=== PATIENT | female | born 1985 | race Caucasian/White ===

== ENCOUNTER → 2018-02-16 09:31 | Outpatient (CLI) | payer OTHER, SELFPAY ==
[2018-02-16 11:00] LABS: Hemoglobin A1c 10.3 % (4.2-6.3)
[2018-02-16 11:06] LABS: Microalbumin,Random Urine < 5.0 mg/L (NO RANGE EST.)
[2018-02-16 11:13] LABS: ALB/GLOB Ratio 0.9 RATIO (0.9-2.4); AST(SGOT) 14 U/L (15-37); Alanine Aminotransfer ALT/SGPT 19 U/L (13-56); Albumin, Serum 3.7 g/dL (3.2-5.0); Alkaline Phosphatase 77 U/L (45-117); Anion Gap 6 (5-15); BUN 15 mg/dL (7-18); BUN/Creat Ratio 19.5 RATIO (10-20); Calcium,Total 9.2 mg/dL (8.5-10.1); Chloride 104 mmol/L (98-107); Cholesterol 151 mg/dL (200); Creatinine, Serum 0.77 mg/dL (0.55-1.02); EST Glomerular Filtration Rate 93 mL/min (>60); Est Glom Filt Rate - Afr Amer 112 mL/min (>60); Globulin 4.2 g/dL (2.2-4.2); Glucose 199 mg/dL (74-106); High Density Lipoprotein 61 mg/dL; Potassium 3.9 mmol/L (3.5-5.1); Protein, Total 7.9 g/dL (6.4-8.2); Sodium Level 136 mmol/L (136-145); Triglycerides 77 mg/dL; Very Low Density Lipoprotein 15 mg/dL (5-40)
== END ==
LOC: LAB 09:35
PROVIDERS: Visit Provider Nurse Practitioner
DX: E10.65 Type 1 diabetes mellitus with hyperglycemia (principal)
CPT/HCPCS: 36415; 80053; 80061; 82043; 82570; 83036

== ENCOUNTER 2019-01-04 17:00 | Observation (INO) | payer OTHER, SELFPAY ==
[2019-01-04] VITALS (11 sets, daily range): BP systolic 106–137; BP diastolic 44–69; PULSE 105–124; RESP 13–25; TEMP 36.2–37.1; O2SAT 98–99; BMI 31.1; BMI 30.9
--- NOTE | 2019-01-04 17:09 | EKG12_ITS ---
Test Reason : DYSRHYTHMIA Blood Pressure : / mmHG Vent. Rate : 115 BPM Atrial Rate : 115 BPM P-R Int : 124 ms QRS Dur : 078 ms QT Int : 372 ms P-R-T Axes : 071 074 035 degrees QTc Int : 514 ms Sinus tachycardia Otherwise normal ECG Confirmed by PIERRE MCGUIRE, QUE ([id number]), supervising editor trailer NICK SOLITARIO ([id number]) on 01/09/2019 10:41:17 AM Referred By: KANDIS Confirmed By:MOODY JAY MD
--- NOTE | 2019-01-04 17:10 | ED.VIS.GEN ---
History of Present Illness Chief Complaint: Nausea/Vomiting Detail of Chief Complaint: Blood sugar greater than 400 Informant: Patient Onset: Today Context: Sudden Onset Timing: Intermittent Quality: Nausea and vomiting x30 since 7 AM Location: GI Current Severity: Mild Maximum Severity: Severe Worsened by: Nothing Relieved by: Nothing Associated Symptoms: Central chest pressure onset 2 hours ago Narrative: Patient is a 33-year-old female with type 1 diabetes since the age of 17 who presents with nausea, vomiting and abdominal pain with vomiting. Onset since awakening this morning. She reports vomiting 30 times since this morning. She denies diarrhea. She denies dysuria, frequency, urgency or hematuria. She does report thirst and dry mouth. She states been sipping water since any attempt to drink more than a sip results and vomiting. She also reports chest heaviness described as an elephant on her chest that started 2 hours ago. She has no known history of coronary disease. Her only risk factor is diabetes. She denies dyspnea, diaphoresis or radiation of the chest heaviness. Prior similar symptoms: Yes Recent Illness/Hospitalization: No - Past Medical History (1) History of type 1 diabetes mellitus Status: Acute Past Medical History - Allergies and Home Meds Allergies/Adverse Reactions: Allergies shellfish derived Allergy (Verified 01/04/19 17:00) Vomiting Primary Care Physician: Care Physician,No Primary [NON-STAFF] - Prior records reviewed: Yes Lives: Spouse/ Significant Other, With Family Smoking Status: Never smoker Alcohol: None Drugs: None Review of Systems General: Denies: Chills, Fever, Malaise, Subjective, Sweats, Weight loss Eyes: Denies: Visual changes - bilaterally, Blurred Vision - bilaterally ENT: Denies: Bilateral ear pain, Rhinorrhea, Sore throat Cardiovascular: Reports: Chest pain. Denies: Palpitations, Heart racing, -, - Respiratory: Denies: Dyspnea, Cough, Dyspnea on exertion Gastrointestinal: Reports: Abdominal pain, Nausea, Vomiting. Denies: Diarrhea, Constipation, Melena, Hematochezia, -, - Genitourinary: Denies: Dysuria, Hematuria, Frequency, -, - Musculoskeletal: Denies: Myalgias, Arthralgias, Neck pain, Back pain, Swelling, Extremity Pain, -, - Skin: Denies: Rash, Wounds Neurological: Reports: Weakness. Denies: Headache, Parasthesia Endocrine: Denies: Polyuria, Polydipsia Hematologic: Denies: Easy bruising, Easy bleeding Allergy: Denies: Uticaria Physical Exam Vital Signs/Narrative: Vital Signs Temp Pulse Resp BP Pulse Ox 01/04/19 17:01 97.2 F L 124 H 17 106/69 98 Inital Vital Signs reviewed: Yes General: Well nourished - Scan his belly is much sensation stool throughout the colon is, Well developed, No Acute Distress Head: Normocephalic, Atraumatic Eyes: Perrl, EOMI. Negative for: Pale conjunctiva, Scleral icterus ENT: No rhinorrhea, TM's clear, Dry mucous membranes Neck: Supple, Nontender, No lymphadenopathy, No JVD Cardiovascular: Regular rhythm, No murmurs, Normal S1, Normal S2, Tachycardia Respiratory: No distress, CTA bilaterally, Chest nontender Abdomen: Soft, Nontender, Nondistended, Normal bowel sounds, No masses Back: Nontender, Normal Inspection. Negative for: CVA tenderness Extremities: Nontender, No edema Skin: Normal color, No rash, No Trauma. Negative for: Cyanosis, Diaphoresis, Jaundice Neurological: Alert, Oriented x3, Cranial nerves II-XII grossly intact, Normal Strength, Normal Sensation, Normal Gait Psychological: Normal affect, Normal Mood Diagnostic/Tx/Re-eval Laboratory Results 01/04/19 01/04/19 01/04/19 17:28 17:28 17:28 WBC 22.9 H RBC 4.61 Hgb 14.0 Hct 41.7 MCV 90.5 MCH 30.4 MCHC 33.6 RDW 12.9 RDW Differential 42.1 Plt Count 343 MPV 11.5 Immature Gran % (Auto) 0.400 Neut % (Auto) 88.7 H Lymph % (Auto) 7.[address] [place] % (Auto) 3.7 Eos % (Auto) 0.0 Baso % (Auto) 0.1 Absolute Neuts (auto) 20.3 H Absolute Lymphs (auto) 1.63 Total Counted Not Reportable Differential Comment SCANNED Sodium 131 L Potassium 4.1 Chloride 98 Carbon Dioxide 12.0 L Anion Gap 21 H BUN 24 H Creatinine 1.40 H Estim Creat Clear Calc 54.01 Est GFR (MDRD) Af Amer 56 L Est GFR (MDRD) Non-Af 46 L BUN/Creatinine Ratio 17.1 Glucose 478 H* Calcium 10.1 Troponin I < 0.015 Urine Color Urine Clarity Urine pH Ur Specific [place] Urine Protein Urine Glucose (UA) Urine Ketones Urine Occult Blood Urine Nitrite Urine Bilirubin Urine Urobilinogen Ur Leukocyte Esterase Acetone Level MODERATE H POC Glucose 01/04/19 01/04/19 17:42 18:37 WBC RBC Hgb Hct MCV MCH MCHC RDW RDW Differential Plt Count MPV Immature Gran % (Auto) Neut % (Auto) Lymph % (Auto) [place] % (Auto) Eos % (Auto) Baso % (Auto) Absolute Neuts (auto) Absolute Lymphs (auto) Total Counted Differential Comment Sodium Potassium Chloride Carbon Dioxide Anion Gap BUN Creatinine Estim Creat Clear Calc Est GFR (MDRD) Af Amer Est GFR (MDRD) Non-Af BUN/Creatinine Ratio Glucose Calcium Troponin I Urine Color Yellow Urine Clarity Clear Urine pH 5.0 Ur Specific [place] 1.020 Urine Protein 15 H Urine Glucose (UA) 1000 H Urine Ketones 150 H Urine Occult Blood Negative Urine Nitrite Negative Urine Bilirubin Negative Urine Urobilinogen Normal Ur Leukocyte Esterase Negative Acetone Level POC Glucose 461 H* - EKG Initial EKG Interpretation: Sinus Tachycardia - Ventricular rate 115. ND interval 124 ms. QRS duration 70 ms. QT interval 372 ms. [place] is normal. - Medical Decision Making Patient with history of type 1 diabetes presents with high blood sugar and nausea vomiting. 2 L of normal saline since she clinically appears dehydrated. Since she is tachycardic will obtain EKG especially since she is complaining of an elephant sitting on her chest. Troponin was obtained. Appropriate blood work to assess for DKA. She received 5 mg of Reglan for nausea vomiting since she has diabetes for approximately 18 years. Patient was informed of results at 1925. She now reports burning sensation. She states it feels like heartburn. She was informed of results. Initial troponin which are the pain was negative. GI cocktail was ordered. Insulin drip was ordered since she is in DKA. Suspect white count is secondary to the DKA and vomiting 30 times. - Critical Care Time Critical care time (excluding procedures): 30-74 minutes - 32 minutes, Discussing w/Patient &/or Family/Nurse Practitioner, Discussing w/Consultants, Arranging Admission or Transfer ED Disposition - Plan for ED Patient: Diagnosis: Diabetic ketoacidosis associated with type 1 diabetes mellitus, Sinus tachycardia by electrocardiogram, Chest pain Referrals: Care Physician,No Primary [NON-STAFF] -
[2019-01-04] MEDS: Metoclopramide 10 MG/2 ML Vial 5 MG IV (17:37)
[2019-01-04] MEDS: 0.9% Normal Saline 1,000 ML 999 ML IV (17:37)
[2019-01-04 17:50] LABS: Bedside Glucose 461 mg/dL (70-110)
[2019-01-04 18:06] LABS: Absolute Lymphocyte Count 1.63 X10^3/ul (0.83-4.51); Absolute Neutrophil Count 20.3 X10^3/uL (2.0-7.7); Basophil# 0.03 X10^3/uL; Basophil% 0.1 % (0-1); Eosinophil# 0.01 X10^3/uL; Hematocrit 41.7 % (37-47); Lymphocyte # 1.63 X10^3/ul (4.0); Lymphocyte % 7.1 % (19-41); Mean Corp Hgb Conc 33.6 g/gl (32-36); Mean Corpuscular Hgb 30.4 pg (27.0-32.0); Mean Corpuscular Volume 90.5 fL (81-99); Mean Platelet Vol. 11.5 fl (6.2-12.0); Monocyte# 0.85 X10^3/uL; Monocyte% 3.7 % (0-10); Neutrophil # 20.26 X10^3/uL (2.7-7.7); Neutrophil % 88.7 % (47-70); Platelet Count 343 K/mm3 (150-450); RBC Distribution Width CV 12.9 % (11.6-14.6); RBC Distribution Width SD 42.1 fl (35.1-43.9); Red Blood Count 4.61 M/mm3 (4.2-5.4); White Blood Count 22.9 K/mm3 (4.4-11.0)
[2019-01-04 18:09] LABS: Differential Indicated SCAN CRITERIA MET; POSITIVE COUNT NO; POSITIVE DIFFERENTIAL YES; POSITIVE MORPHOLOGY YES
[2019-01-04 18:40] LABS: Differential Comment SCANNED
[2019-01-04 18:43] LABS: Bacteria 0 SEEN /hpf (None Seen); Mucous, Urine 0 SEEN /hpf (<or=2+); White Blood Cells 0 SEEN /hpf (0-5)
[2019-01-04 18:44] LABS: Color, Urine Yellow (Yellow); Glucose, Dipstick 1000 mg/dl (Normal); Leukocyte Esterase-Dipstick Negative /ul (Negative); Nitrite-Dipstick Negative (Negative); Occult Blood-Urine Negative /ul (Negative); Protein-Dipstick 15 mg/dl (Negative); Urine Bilirubin Dipstick Negative (Negative); Urine Clarity Clear (Clear); Urine Urobilinogen Normal (Normal)
[2019-01-04 19:05] LABS: Ketone-Dipstick 150 mg/dl (Negative)
[2019-01-04 19:15] LABS: Anion Gap 21 (5-15); BUN 24 mg/dL (7-18); BUN/Creat Ratio 17.1 RATIO (10-20); Calcium,Total 10.1 mg/dL (8.5-10.1); Chloride 98 mmol/L (98-107); EST Glomerular Filtration Rate 46 mL/min (>60); Est Glom Filt Rate - Afr Amer 56 mL/min (>60); Estimated Creatinine Clearance 54.01 ml/min; Glucose 478 mg/dL (74-106); Potassium 4.1 mmol/L (3.5-5.1); Sodium Level 131 mmol/L (136-145)
[2019-01-04 19:27] LABS: Red Blood Cells-Urine 0-5 SEEN /hpf (0-5); Squamous Epithelial Cells - UA 0-5 SEEN /hpf (5-10)
--- NOTE | 2019-01-04 19:29 | PCM.HP.STD ---
Problem List (1) History of type 1 diabetes mellitus Status: Chronic (2) Diabetic ketoacidosis associated with type 1 diabetes mellitus Status: Acute (3) Chest pain Status: Acute History of Present Illness Date of Admission: 01/04/19 Chief Complaint: NAUSEA AND VOMITING The patient is a 33 year old F with a significant history of tobacco abuse; and type 1 diabetes who has been previously admitted to ICU for DKA and currently on insulin pump presenting with nausea and vomiting. Per patient's she has vomited about 30 times. Her symptoms occurred on the same day of presentation. Because she thought that her insulin pump was not working she changed her insulin pump and gave herself multiple doses without any real relief. Associated with her symptoms is abdominal pain. Further patient complains of chest heaviness that spun across her entire chest. At the ED, patient was given GI cocktail which gave her immediate relief. At the emergency department her blood glucose on BMP was 478. Her sodium was 131. She had anion gap and ketones. Past Medical History Past Medical History (Chronic Problems): Chronic Problems (Last Reviewed 01/05/19 @ 02:28 by Jaylan Canales MD) History of type 1 diabetes mellitus (Chronic) uncontrolled diabetes type 1 without complication (Chronic) Type 2 diabetes mellitus (Chronic) Medical History: Medical History (Last Reviewed 01/05/19 @ 02:31 by Jaylan Canales MD) Hypothyroidism E03.9 Type 1 diabetes E10.9 Dx : age 17 Last exacerbation : DKA : 2008 Hypoglycemic episode : never ER visit : 2008 Allergies shellfish derived Allergy (Verified 01/04/19 17:00) Vomiting Home Medications: Ambulatory Orders Medication Instructions Recorded insulin lispro (U- 100) 100 See Rx Instructions SC QDAY #20 ml 08/29/18 unit/mL subcutaneous solution Surgical History: Surgical History (Last Reviewed 01/05/19 @ 02:28 by Jaylan Canales MD) H/O: Z98.891 Lives: With Family Smoking Status: Former smoker Alcohol: Occasional Drugs: None - *Family History Maternal Family History: Family History (Last Reviewed 01/05/19 @ 02:29 by Jaylan Canales MD) Father Hypertension Heart disease Myocardial infarction History Items: - - Maternal side with stage IV lung cancer Review of Systems Constitutional: Denies: Chills, Fever, Weight Change HEENT: Denies: Head Aches, Sinus Congestion, Sinus Drainage Cardiovascular: Reports: Heaviness. Denies: Palpitations Respiratory: Denies: Cough, Shortness of breath at rest, Sputum production Gastrointestinal: Reports: Nausea, Vomiting. Denies: Abdominal Pain Genitourinary: Denies: Dysuria Musculoskeletal: Denies: Joint Pain, Joint Tenderness Skin: Denies: Rash, Wounds Neurological: Denies: Numbness, Tingling, Focal weakness Psychiatric: Denies: Anxiety, Depression, Homicidal Ideations, Suicidal Ideations Hematologic/ Lymphatic: Denies: Easy Bruising, Easy Bleeding VTE Information - Inpt Only VTE Present on Admission: No VTE Mechan Device Prophylaxis: None VTE Pharm Prophylaxis ordered?: No Patient Problems: Active and Suspected Problems (Last Reviewed 01/05/19 @ 02:28 by Jaylan Canales MD) Diabetic ketoacidosis associated with type 1 diabetes mellitus (Acute) Sinus tachycardia by electrocardiogram (Acute) Chest pain (Acute) - Physical Exam General: Alert, Oriented x3, Cooperative HEENT: Atraumatic, PERRLA, EOMI, Normocephalic Neck: Supple, No JVD, Negative Carotid Bruits Lungs: Clear to auscultation, Normal air movement, Tachypneic Cardiovascular: Regular rate, No murmurs, Tachycardic Abdomen: Bowel Sounds Present, Soft, Non Tender Extremities: No edema, Capillary Refill Less than 3 Seconds Skin: No rashes, No breakdown Musculoskeletal: No Tenderness to Palpation of Joints or Extremities Neurological: Cranial nerves II-XII grossly intact Psych/Mental Status: Normal Affect, Appropriate Vital Signs Temp Pulse Resp BP Pulse Ox 97.2 F L 124 H 17 106/69 98 01/04/19 17:01 01/04/19 17:01 01/04/19 17:01 01/04/19 17:01 01/04/19 17:01 Oxygen Delivery Method Room Air Weight: 87.6 kg Body Mass Index (BMI) 31.1 Finger Stick Blood Glucose 461 Laboratory Tests Past 24 Hrs 01/04/19 01/04/19 01/04/19 17:28 17:28 17:28 WBC 22.9 H RBC 4.61 Hgb 14.0 Hct 41.7 MCV 90.5 MCH 30.4 MCHC 33.6 RDW 12.9 RDW Differential 42.1 Plt Count 343 MPV 11.5 Immature Gran % (Auto) 0.400 Neut % (Auto) 88.7 H Lymph % (Auto) 7.1 L [place] % (Auto) 3.7 Eos % (Auto) 0.0 Baso % (Auto) 0.1 Absolute Neuts (auto) 20.3 H Absolute Lymphs (auto) 1.63 Total Counted Not Reportable Differential Comment SCANNED Sodium 131 L Potassium 4.1 Chloride 98 Carbon Dioxide 12.0 L Anion Gap 21 H BUN 24 H Creatinine 1.40 H Estim Creat Clear Calc 54.01 Est GFR (MDRD) Af Amer 56 L Est GFR (MDRD) Non-Af 46 L BUN/Creatinine Ratio 17.1 Glucose 478 H* Calcium 10.1 Troponin I < 0.015 Urine Color Urine Clarity Urine pH Ur Specific [place] Urine Protein Urine Glucose (UA) Urine Ketones Urine Occult Blood Urine Nitrite Urine Bilirubin Urine Urobilinogen Ur Leukocyte Esterase Urine RBC Urine WBC Ur Squamous Epith Cells Urine Bacteria Urine Mucus Acetone Level MODERATE H 01/04/19 01/04/19 17:28 18:37 WBC RBC Hgb Hct MCV MCH MCHC RDW RDW Differential Plt Count MPV Immature Gran % (Auto) Neut % (Auto) Lymph % (Auto) [place] % (Auto) Eos % (Auto) Baso % (Auto) Absolute Neuts (auto) Absolute Lymphs (auto) Total Counted Differential Comment Sodium Pending Potassium Pending Chloride Pending Carbon Dioxide Pending Anion Gap Pending BUN Pending Creatinine Pending Estim Creat Clear Calc Est GFR (MDRD) Af Amer Pending Est GFR (MDRD) Non-Af Pending BUN/Creatinine Ratio Pending Glucose Pending Calcium Pending Troponin I Urine Color Yellow Urine Clarity Clear Urine pH 5.0 Ur Specific [place] 1.020 Urine Protein 15 H Urine Glucose (UA) 1000 H Urine Ketones 150 H Urine Occult Blood Negative Urine Nitrite Negative Urine Bilirubin Negative Urine Urobilinogen Normal Ur Leukocyte Esterase Negative Urine RBC 0-5 SEEN Urine WBC 0 SEEN Ur Squamous Epith Cells 0-5 SEEN Urine Bacteria 0 SEEN Urine Mucus 0 SEEN Acetone Level POC Glucose 01/04/19 17:42 POC Glucose 461 H* Assessment/Plan All Active Problems (Last Reviewed 01/05/19 @ 02:28 by Jaylan Canales MD) Diabetic ketoacidosis associated with type 1 diabetes mellitus (Acute) Sinus tachycardia by electrocardiogram (Acute) Chest pain (Acute) The patient is a 33 year old F with a significant history of former smoker; type 1 diabetes who has been previously admitted to ICU for DKA and currently on insulin pump presenting with nausea; vomiting; abdominal pain; chest pain; elevated blood glucose with anion gap and ketones consistent with DKA. DKA The patient reports compliance with home insulin therapy. But is unsure whether previous insulin pump was working. Her DKA could be secondary to insufficient insulin to meet his metabolic demands. Serum glucose:478 acetone level: moderate Anion gap of :21 Sodium: 131 . Corrected sodium:137 Insulin drip started from emergency department; continue Completed IV bolus of normal saline Because of potassium of 4.1 we will start patient on half-normal saline with potassium. BMP every 4 hours to calculate anion gap. N.p.o. for now Admitted to ICU A1c and ordered. Morphine and Zofran as needed. Patient was counseled Non Categorical Preschool Teacher consult. Chest pain Likely from DKA EKG showed sinus tach. Initial troponin after 2 hours of chest pain was unremarkable. Trend troponins. DVT prophylaxis Low risk Ambulate. Code Visit Inpatient E&M: 77096 Init Hosp L3
[2019-01-04] MEDS: Mag Hydrox/Al Hydrox/Simeth 30 ML UDC PO (19:33)
--- NOTE | 2019-01-04 19:44 | ED.RN ---
pt turned insulin pump off now
--- NOTE | 2019-01-04 20:03 | ED.RN ---
PT'S BGT ON ARRIVAL WAS 478; REPEAT CHECKED WAS 314. INSULIN GTT ORDERED TO START AT 8.76 ML/HR. MD AWARE INSULIN GTT STARTED AT 4.3 ML/HR BASED ON PROTOCOL OF GREATER THAN 100 DROP IN BGT. PT STATED SHE GAVE HERSELF 3.4 UNITS OF INSULIN FROM HER OWN PUMP WHILE IN THE ED.
[2019-01-04 20:06] LABS: Bedside Glucose 314 mg/dL (70-110)
--- NOTE | 2019-01-04 20:10 | ED.RN ---
MD AWARE OF STARTING GTT AT 4.3ML/HR DUE TO DKA PROTOCOL.
[2019-01-04] MEDS: 0.9% NaCl Peripheral Flush Adult/Peds IV (20:55)
[2019-01-04] MEDS: Ondansetron 4 MG/2 ML Vial IV (20:55)
[2019-01-04 21:00] LABS: Bedside Glucose 274 mg/dL (70-110)
[2019-01-04 21:19] LABS: Anion Gap 14 (5-15); BUN 19 mg/dL (7-18); BUN/Creat Ratio 17.3 RATIO (10-20); Calcium,Total 8.6 mg/dL (8.5-10.1); Chloride 106 mmol/L (98-107); EST Glomerular Filtration Rate 61 mL/min (>60); Est Glom Filt Rate - Afr Amer 74 mL/min (>60); Glucose 263 mg/dL (74-106); Hemoglobin A1c 9.1 % (4.2-6.3); Potassium 4.1 mmol/L (3.5-5.1); Sodium Level 136 mmol/L (136-145)
[2019-01-04 22:05] LABS: Bedside Glucose 226 mg/dL (70-110)
[2019-01-05] VITALS (12 sets, daily range): BP systolic 98–125; BP diastolic 36–64; PULSE 91–114; RESP 13–20; TEMP 36.7–37; O2SAT 98–100
[2019-01-05 00:06] LABS: Anion Gap 8 (5-15); BUN 18 mg/dL (7-18); BUN/Creat Ratio 19.1 RATIO (10-20); Calcium,Total 8.3 mg/dL (8.5-10.1); Chloride 108 mmol/L (98-107); Creatinine, Serum 0.94 mg/dL (0.55-1.02); EST Glomerular Filtration Rate 73 mL/min (>60); Est Glom Filt Rate - Afr Amer 88 mL/min (>60); Estimated Creatinine Clearance 83.55 ml/min; Glucose 194 mg/dL (74-106); Sodium Level 136 mmol/L (136-145)
[2019-01-05 01:11] LABS: Bedside Glucose 175 mg/dL (70-110)
[2019-01-05 01:20] LABS: Bedside Glucose 194 mg/dL (70-110)
[2019-01-05] MEDS: Morphine 2 MG/ML Syringe IV (01:38)
[2019-01-05] MEDS: 0.9% NaCl Peripheral Flush Adult/Peds IV (01:39)
[2019-01-05 02:06] LABS: Bedside Glucose 211 mg/dL (70-110)
[2019-01-05 03:05] LABS: Bedside Glucose 250 mg/dL (70-110)
[2019-01-05 04:01] LABS: Bedside Glucose 223 mg/dL (70-110)
[2019-01-05 04:56] LABS: Absolute Lymphocyte Count 2.53 X10^3/ul (0.83-4.51); Absolute Neutrophil Count 10.5 X10^3/uL (2.0-7.7); Basophil# 0.03 X10^3/uL; Basophil% 0.2 % (0-1); Eosinophil# 0.02 X10^3/uL; Eosinophils% 0.1 % (0-5); Hematocrit 34.6 % (37-47); Hemoglobin 11.8 g/dl (12.0-15.0); Lymphocyte # 2.53 X10^3/ul (4.0); Lymphocyte % 17.5 % (19-41); Mean Corp Hgb Conc 34.1 g/gl (32-36); Mean Corpuscular Hgb 29.6 pg (27.0-32.0); Mean Corpuscular Volume 86.7 fL (81-99); Mean Platelet Vol. 9.9 fl (6.2-12.0); Monocyte# 1.41 X10^3/uL; Monocyte% 9.7 % (0-10); Neutrophil # 10.45 X10^3/uL (2.7-7.7); Neutrophil % 72.2 % (47-70); Platelet Count 307 K/mm3 (150-450); RBC Distribution Width CV 12.5 % (11.6-14.6); RBC Distribution Width SD 38.5 fl (35.1-43.9); Red Blood Count 3.99 M/mm3 (4.2-5.4); White Blood Count 14.5 K/mm3 (4.4-11.0)
[2019-01-05 04:57] LABS: POSITIVE COUNT NO; POSITIVE DIFFERENTIAL NO; POSITIVE MORPHOLOGY NO
[2019-01-05 05:08] LABS: Anion Gap 11 (5-15); BUN 14 mg/dL (7-18); BUN/Creat Ratio 16.7 RATIO (10-20); Calcium,Total 8.2 mg/dL (8.5-10.1); Chloride 107 mmol/L (98-107); Creatinine, Serum 0.84 mg/dL (0.55-1.02); EST Glomerular Filtration Rate 84 mL/min (>60); Est Glom Filt Rate - Afr Amer 101 mL/min (>60); Glucose 220 mg/dL (74-106); Sodium Level 140 mmol/L (136-145)
[2019-01-05 07:36] LABS: Bedside Glucose 246 mg/dL (70-110)
[2019-01-05] MEDS: Insulin Lispro 100 UNIT/ML INSULN.PEN 6 UNIT SC (08:16)
[2019-01-05] MEDS: Insulin Lispro 100 UNIT/ML INSULN.PEN SC (08:17)
--- NOTE | 2019-01-05 09:52 | DCINST_ITS ---
- Discharge Diagnoses Current Active Problems: Current Active and Chronic Problems (Last Reviewed 01/05/19 @ 02:31 by Jaylan Canales MD) Diabetic ketoacidosis associated with type 1 diabetes mellitus (Acute) Sinus tachycardia by electrocardiogram (Acute) Chest pain (Acute) You will use the following diet at home:: Calorie/Carbohydrate Controlled (specify 1200, 1400, etc) - 1800 delfin. Your food should be the consistency of: Regular Discharge Activity: Return to Normal Activity Weight Bearing Status: Full weight bearing Call your doctor if you observe: Fever of 101 or Higher, Shortness of breath, Dizziness, Fainting spells, Chest pain, Increased palpitations (irregular heartbeat), Uncontrolled pain Allergies/Adverse Reactions: Allergies shellfish derived Allergy (Verified 01/04/19 19:43) Vomiting Medications to take at Discharge insulin lispro (U- 100) 100 unit/mL subcutaneous solution See Rx Instructions [place] QDAY #20 ml 08/29/18 Primary Care Physician: Care Physician,No Primary [NON-STAFF] - Please follow up with your Primary Care Physician in: 1 week. Test Results: Test results from this visit will be discussed in further detail at your follow- up appointment, if applicable. Please Follow Up With: Rosa Maria Zimmerman NP-C When: 1-2 weeks.
--- NOTE | 2019-01-05 12:29 | DS.PCM_ITS ---
Discharge Date and Diagnosis Date of Admission: 01/04/19 Date of Discharge: 01/05/19 - Primary Discharge Diagnosis #1 diabetic ketoacidosis secondary to malfunctioning insulin pump. #2 acute kidney injury. #3 pseudohyponatremia due to hyperglycemia. - Secondary Discharge Diagnosis Chronic Problems (Last Reviewed 01/05/19 @ 02:31 by Jaylan Canales MD) History of type 1 diabetes mellitus (Chronic) uncontrolled diabetes type 1 without complication (Chronic) Type 2 diabetes mellitus (Chronic) Hospital Course and Treatment Operations: None Procedures: None Summary of Care Provided: Patient seen and examined on the day of discharge and appeared to be stable to be discharged home. She denies any symptoms. Her vital signs are stable. The patient is a 33 year old F presented to the emergency room because of abdominal pain, nausea and vomiting and because of blood sugar more than 400. She was found to have acute diabetic ketoacidosis with acute kidney injury and this DKA attributed to malfunction insulin pump. Patient mentioned that her insulin pump was not working appropriately because of its needle. Upon arrival to ED, her blood glucose was 478, found to have serum bicarb of 12 and anion gap of 21 and acetone level was moderate. She was admitted to intensive care unit, treated with DKA protocol with IV insulin drip and IV fluids. There was no evidence of infection. Apart from mild tachycardia, her vital signs were stable and she remained afebrile. With IV insulin therapy and IV fluids, her glucose came down to 200s, anion gap closed and her sodium bicarb normalized. Patient symptoms improved. Urine analysis revealed no evidence of acute cystitis. Troponin was negative. Hemoglobin A1c was 9.1. This morning, patient started eating and she did fine. Patient discharged home in a stable medical condition, continued on insulin pump without any changes, recommended follow-up with PCP in 1 week and follow-up with endocrinology into 1 to 2 weeks. - Physical Exam General: Alert, Oriented x3, Cooperative, No apparent distress HEENT: Atraumatic, PERRLA, EOMI, Normocephalic Oral: Moist Mucosa, No Gingival or Mucosal Lesions/ Ulcerations Neck: Supple, No JVD, Negative Carotid Bruits, Trachea Midline, Thyroid Normal Size and Texture Lungs: Clear to auscultation, Normal air movement, No rhonchi, No wheeze, No rales Cardiovascular: Regular rate, Regular Rhythm, Normal S1, Normal S2, PMI Normal Abdomen: Bowel Sounds Present, Soft, Non Tender, Non-Distended, No Hepato- splenomegaly Extremities: No clubbing, No cyanosis, No edema Skin: No rashes, No breakdown Lymphatic: No Cervical, Supraclavicular, or Inguinal Adenopathy Neurological: Cranial nerves II-XII grossly intact, Neuro grossly intact Psych/Mental Status: Normal Affect, Appropriate Vital Signs Temp Pulse Resp BP Pulse Ox 98.2 F 100 19 H 102/62 99 01/05/19 10:33 01/05/19 10:33 01/05/19 10:33 01/05/19 10:33 01/05/19 10:33 Oxygen Delivery Method Room Air Weight: 197 lb 1.492 oz Body Mass Index (BMI) 30.9 Finger Stick Blood Glucose 198 Intake and Output for Last 24 Hours 01/03/19 01/04/19 01/05/19 23:59 23:59 23:59 Intake Total 734 / 734 853 / 853 Balance 734 / 734 853 / 853 Laboratory Tests Past 24 Hrs 01/04/19 01/04/19 01/04/19 17:28 17:28 17:28 WBC 22.9 H RBC 4.61 Hgb 14.0 Hct 41.7 MCV 90.5 MCH 30.4 MCHC 33.6 RDW 12.9 RDW Differential 42.1 Plt Count 343 MPV 11.5 Immature Gran % (Auto) 0.400 Neut % (Auto) 88.7 H Lymph % (Auto) 7.1 L [place] % (Auto) 3.7 Eos % (Auto) 0.0 Baso % (Auto) 0.1 Absolute Neuts (auto) 20.3 H Absolute Lymphs (auto) 1.63 Total Counted Not Reportable Differential Comment SCANNED Sodium 131 L Potassium 4.1 Chloride 98 Carbon Dioxide 12.0 L Anion Gap 21 H BUN 24 H Creatinine 1.40 H Estim Creat Clear Calc 54.01 Est GFR (MDRD) Af Amer 56 L Est GFR (MDRD) Non-Af 46 L BUN/Creatinine Ratio 17.1 Glucose 478 H* Hemoglobin A1c Calcium 10.1 Troponin I < 0.015 Urine Color Urine Clarity Urine pH Ur Specific [place] Urine Protein Urine Glucose (UA) Urine Ketones Urine Occult Blood Urine Nitrite Urine Bilirubin Urine Urobilinogen Ur Leukocyte Esterase Urine RBC Urine WBC Ur Squamous Epith Cells Urine Bacteria Urine Mucus Acetone Level MODERATE H 01/04/19 01/04/19 01/04/19 17:28 18:37 20:50 WBC RBC Hgb Hct MCV MCH MCHC RDW RDW Differential Plt Count MPV Immature Gran % (Auto) Neut % (Auto) Lymph % (Auto) [place] % (Auto) Eos % (Auto) Baso % (Auto) Absolute Neuts (auto) Absolute Lymphs (auto) Total Counted Differential Comment Sodium Cancelled Potassium Cancelled Chloride Cancelled Carbon Dioxide Cancelled Anion Gap Cancelled BUN Cancelled Creatinine Cancelled Estim Creat Clear Calc Cancelled Est GFR (MDRD) Af Amer Cancelled Est GFR (MDRD) Non-Af Cancelled BUN/Creatinine Ratio Cancelled Glucose Cancelled Hemoglobin A1c 9.1 H Calcium Cancelled Troponin I Urine Color Yellow Urine Clarity Clear Urine pH 5.0 Ur Specific [place] 1.020 Urine Protein 15 H Urine Glucose (UA) 1000 H Urine Ketones 150 H Urine Occult Blood Negative Urine Nitrite Negative Urine Bilirubin Negative Urine Urobilinogen Normal Ur Leukocyte Esterase Negative Urine RBC 0-5 SEEN Urine WBC 0 SEEN Ur Squamous Epith Cells 0-5 SEEN Urine Bacteria 0 SEEN Urine Mucus 0 SEEN Acetone Level 01/04/19 01/04/19 01/04/19 20:50 23:45 23:45 WBC RBC Hgb Hct MCV MCH MCHC RDW RDW Differential Plt Count MPV Immature Gran % (Auto) Neut % (Auto) Lymph % (Auto) [place] % (Auto) Eos % (Auto) Baso % (Auto) Absolute Neuts (auto) Absolute Lymphs (auto) Total Counted Differential Comment Sodium 136 136 Potassium 4.1 4.0 Chloride 106 108 H Carbon Dioxide 16.0 L 20.0 L Anion Gap 14 8 BUN 19 H 18 Creatinine 1.10 H 0.94 Estim Creat Clear Calc 71.40 83.55 Est GFR (MDRD) Af Amer 74 88 Est GFR (MDRD) Non-Af 61 73 BUN/Creatinine Ratio 17.3 19.1 Glucose 263 H 194 H Hemoglobin A1c Calcium 8.6 8.3 L Troponin I < 0.015 < 0.015 Urine Color Urine Clarity Urine pH Ur Specific [place] Urine Protein Urine Glucose (UA) Urine Ketones Urine Occult Blood Urine Nitrite Urine Bilirubin Urine Urobilinogen Ur Leukocyte Esterase Urine RBC Urine WBC Ur Squamous Epith Cells Urine Bacteria Urine Mucus Acetone Level 01/05/19 01/05/19 04:30 04:30 WBC 14.5 H RBC 3.99 L Hgb 11.8 L Hct 34.6 L MCV 86.7 MCH 29.6 MCHC 34.1 RDW 12.5 RDW Differential 38.5 Plt Count 307 MPV 9.9 Immature Gran % (Auto) 0.300 Neut % (Auto) 72.2 H Lymph % (Auto) 17.5 L [place] % (Auto) 9.7 Eos % (Auto) 0.1 Baso % (Auto) 0.2 Absolute Neuts (auto) 10.5 H Absolute Lymphs (auto) 2.53 Total Counted Not Reportable Differential Comment Sodium 140 Potassium 4.0 Chloride 107 Carbon Dioxide 22.0 Anion Gap 11 BUN 14 Creatinine 0.84 Estim Creat Clear Calc 93.50 Est GFR (MDRD) Af Amer 101 Est GFR (MDRD) Non-Af 84 BUN/Creatinine Ratio 16.7 Glucose 220 H Hemoglobin A1c Calcium 8.2 L Troponin I Urine Color Urine Clarity Urine pH Ur Specific [place] Urine Protein Urine Glucose (UA) Urine Ketones Urine Occult Blood Urine Nitrite Urine Bilirubin Urine Urobilinogen Ur Leukocyte Esterase Urine RBC Urine WBC Ur Squamous Epith Cells Urine Bacteria Urine Mucus Acetone Level POC Glucose 01/05/19 01/05/19 01/05/19 07:25 03:57 02:55 POC Glucose 246 H 223 H 250 H 01/05/19 01/05/19 01/04/19 01:52 01:08 23:34 POC Glucose 211 H 194 H 175 H 01/04/19 01/04/19 01/04/19 21:57 20:56 19:54 POC Glucose 226 H 274 H 314 H 01/04/19 17:42 POC Glucose 461 H* Discharge Activity: Return to Normal Activity Weight Bearing Status: Full weight bearing Call your doctor if you observe: Fever of 101 or Higher, Shortness of breath, Dizziness, Fainting spells, Chest pain, Increased palpitations (irregular heartbeat), Uncontrolled pain Home Medications: Medications to take at Discharge insulin lispro (U- 100) 100 unit/mL subcutaneous solution See Rx Instructions SC QDAY #20 ml 08/29/18 Primary Care Physician: Care Physician,No Primary [NON-STAFF] - Please follow up with your Primary Care Physician in: 1 week. Please Follow Up With: Rosa Maria Zimmerman NP-C When: 1-2 weeks. Disposition: Home Minutes spent on discharge:: 26 Patient Condition:: Stable Medical Necessity - Tobacco Use Smoking Status: Former smoker Tobacco Use: Cigarettes Meaningful Use Info Meaningful Use Diagnoses (Choose all that apply): None applicable Code Visit Inpatient E&M: 10656 Disch Hosp
== END 2019-01-05 10:38 | disposition home or self-care (01) | DRG 919 ==
LOC: ED 17:14 → ICU 01-05 07:13
PROVIDERS: Admitting Provider Hospitalist; Emergency Provider Emergency Medicine; Family Provider Nurse Practitioner; PCP Nurse Practitioner; Visit Provider Hospitalist
DX: T85.694A Other mechanical complication of insulin pump, initial encounter (principal); E10.10 Type 1 diabetes mellitus with ketoacidosis without coma; N17.9 Acute kidney failure, unspecified; Z96.41 Presence of insulin pump (external) (internal); T38.3X6A Underdosing of insulin and oral hypoglycemic [antidiabetic] drugs, initial encounter; Z87.891 Personal history of nicotine dependence; Z79.4 Long term (current) use of insulin
CPT/HCPCS: 80048; 81001; 82009; 82962; 83036; 84484; 85025; 93005; 96361; 96365; 96366; 96375; 99218; 99284; J7030; A4216; G0378; J2405

== ENCOUNTER → 2020-04-12 13:53 | Outpatient (CLI) | payer MEDICAID, SELFPAY ==
[2020-02-06 11:21] VITALS: BMI 30.9
[2020-04-12 15:37] LABS: Free T3 2.3 pg/mL (2.18-3.98); T4 Free Direct 1.19 ng/dL (0.76-1.46); Thyroid Stim Hormone (TSH) 2.43 uIU/mL (0.358-3.74)
[2020-04-15 01:40] LABS: Thyroid Peroxidase AB 23 IU/mL (0-34)
== END ==
PROVIDERS: Referring Provider Internal Medicine Endocrinology, Diabetes & Metabolism; Visit Provider Internal Medicine Endocrinology, Diabetes & Metabolism
DX: R94.6 Abnormal results of thyroid function studies (principal)
CPT/HCPCS: 36415; 84439; 84443; 84481; 86376

== ENCOUNTER → 2020-04-17 13:37 | Outpatient (CLI) | payer MEDICAID, SELFPAY ==
[2020-02-06 11:21] VITALS: BMI 30.9
--- NOTE | 2020-04-17 13:58 | CDU_ITS ---
Reason For Study: Retinal artery branch Rt. Velocities/BP Lt. Velocities/BP Prox CCA 91/22 cm/sec. Prox CCA 94/25 cm/sec. Mid CCA 83/23 cm/sec. Mid CCA 84/27 cm/sec. Dist CCA 88/32 cm/sec. Dist CCA 79/27 cm/sec. Prox ICA 66/32 cm/sec. Prox ICA 53/19 cm/sec. Mid ICA 88/40 cm/sec. Mid ICA 81/33 cm/sec. Dist ICA 82/41 cm/sec. Dist ICA 109/56 cm/sec. Rt. ICA/CCA = 1.1. Lt. ICA/CCA = 1.3. Prox ECA 88/14 cm/sec. Prox ECA 114/29 cm/sec. Rt. Vert. 45/17 cm/sec. Lt. Vert. 58/25 cm/sec. Right Extracranial There is no significant atherosclerotic plaque noted in the right common carotid artery. There is no significant atherosclerotic plaque noted in the right internal carotid artery. There is no significant atherosclerotic plaque noted in the right external carotid artery. Antegrade flow is noted in the right vertebral artery. Left Extracranial There is no significant atherosclerotic plaque noted in the left common carotid artery. There is no significant atherosclerotic plaque noted in the left internal carotid artery. There is no significant atherosclerotic plaque noted in the left external carotid artery. Antegrade flow is noted in the left vertebral artery. Procedure Carotid Duplex 00792. Exam performed in department. Interpretation Summary No hemodynamic significant plaque or stenosis bilateral extracranial internal carotid arteries with less than 50% stenosis. <50% stenosis bilateral external carotids Patent and antegrade vertebrals bilaterally Ordering Physician: VERENA MILTON Referring Physician: VERENA MILTON Performed By: Siobhan Dolan, RDCS, RVT
[2020-04-17 15:01] LABS: Absolute Lymphocyte Count 2.37 X10^3/uL (0.83-4.51); Absolute Neutrophil Count 6.4 X10^3/uL (2.0-7.7); Basophil# 0.03 X10^3/uL; Basophil% 0.3 % (0-1); Eosinophil# 0.15 X10^3/uL; Eosinophils% 1.6 % (0-5); Hematocrit 36.2 % (37-47); Hemoglobin 12.3 g/dL (12.0-15.0); Lymphocyte # 2.37 X10^3/ul (4.0); Lymphocyte % 24.6 % (19-41); Mean Corpuscular Hgb 30.8 pg (27.0-32.0); Mean Corpuscular Volume 90.5 fL (81-99); Mean Platelet Vol. 9.8 fl (6.2-12.0); Monocyte# 0.66 X10^3/uL; Monocyte% 6.8 % (0-10); NRBC Flagged by Analyzer 0 % (0-5); Neutrophil % 66.3 % (47-70); Platelet Count 360 K/mm3 (150-450); RBC Distribution Width CV 12.4 % (11.6-14.6); RBC Distribution Width SD 40.2 fl (35.1-43.9); White Blood Count 9.7 K/mm3 (4.4-11.0)
== END ==
DX: H34.231 Retinal artery branch occlusion, right eye (principal)
CPT/HCPCS: 36415; 85025; 93880

== ENCOUNTER → 2020-04-18 13:54 | Outpatient (CLI) | payer MEDICAID, SELFPAY ==
[2020-02-06 11:21] VITALS: BMI 30.9
--- NOTE | 2020-04-18 13:56 | ECHOD_ITS ---
Reason For Study: RETINAL ARTERY BRANCH OCCLUSION Procedure This was a 2D Doppler, Color Flow transthoracic echocardiogram. Exam performed in department. Left Ventricle Normal LV size. The estimated ejection fraction is 60 %. Normal diastology for age. No regional wall motion abnormalities noted. Right Ventricle Normal RV size. Normal systolic function. Atria Normal left atrium. Normal right atrium. Normal atrial septum. Mitral Valve There is no mitral valve stenosis. No mitral valve insufficiency. Tricuspid Valve There is no tricuspid stenosis. Trivial tricuspid valve insufficiency. Pulmonary artery systolic pressure is 25 mmHg. Aortic Valve Trisinus/trileaflet aortic valve. There is no aortic stenosis. No aortic valve insufficiency. Pulmonic Valve There is no pulmonic valvular stenosis. No pulmonic valve insufficiency. Great Vessels Normal aortic root. Pericardium/Pleural No pericardial effusion. Medication Unable to use Definity or perform bubble study due to current . MMode/2D Measurements & Calculations LVIDd: 3.8 cm IVSd: 0.80 cm Ao root diam: 2.9 cm LVIDs: 2.7 cm LVPWd: 0.81 cm RVDd: 3.4 cm FS: 29.3 % LAV(MOD-bp): 37.8 ml LA A4 area: 15.4 cm2 LA dimension(2D): 3.0 cm LAV(MOD-bp) Indexed: 19.1 ml/m2 LAV(MOD-sp2): 33.3 ml LAV(MOD-sp4): 39.2 ml RA A4 area: 15.7 cm2 Time Measurements MV dec time: 0.16 sec Doppler Measurements & Calculations MV E max cezar: 62.7 cm/sec Lat Peak E' Cezar: 12.5 cm/sec Med Peak E' Cezar: 8.3 cm/sec MV A max cezar: 58.2 cm/sec E/E' lat: 5.0 E/E' med: 7.6 MV E/A: 1.1 Ao V2 max: 121.2 cm/sec LV V1 max: 104.1 cm/sec TR max cezar: 232.9 cm/sec Ao max P.9 mmHg LV V1 max P.3 mmHg TR max P.7 mmHg Interpretation Summary The estimated ejection fraction is 60 %. Normal diastology for age. Ordering Physician: VERENA MILTON Referring Physician: VERENA MILTON Performed By: Rupinder Wolfe, RADHIKA, RVT
== END ==
DX: H34.231 Retinal artery branch occlusion, right eye (principal)
CPT/HCPCS: 93306

== ENCOUNTER → 2020-05-21 13:27 | Outpatient (CLI) | payer MEDICAID, SELFPAY ==
[2020-02-06 11:21] VITALS: BMI 30.9
[2020-05-21] MEDS: Lactated Ringers 1,000 ML 500 ML IV (14:06)
[2020-05-21 14:07] VITALS: BP 120/75; PULSE 102; RESP 16; TEMP 36.6; BMI 31.9
[2020-05-21 16:10] VITALS: BP 120/75; PULSE 102; RESP 16; TEMP 36.6
== END ==
PROVIDERS: Referring Provider Obstetrics & Gynecology; Visit Provider Obstetrics & Gynecology
DX: O24.019 Pre-existing type 1 diabetes mellitus, in pregnancy, unspecified trimester (principal); Z3A.00 Weeks of gestation of pregnancy not specified; Z79.4 Long term (current) use of insulin; Z96.41 Presence of insulin pump (external) (internal)
CPT/HCPCS: 96360; 96361; J7120; A4216

== ENCOUNTER 2020-09-09 10:05 | Outpatient (CLI) | payer MEDICAID, SELFPAY ==
[2020-09-05 08:07] VITALS: BMI 34.2
[2020-09-09] VITALS (7 sets, daily range): BP systolic 122–137; BP diastolic 61–75; PULSE 85–101; TEMP 36.7; BMI 36.4
[2020-09-09] MEDS: Metoclopramide 10 MG/2 ML Vial IV (11:20)
[2020-09-09] MEDS: Lactated Ringers 1,000 ML 999 ML IV (11:21)
[2020-09-09 11:35] LABS: Hematocrit 35.5 % (37-47); Hemoglobin 11.4 g/dL (12.0-15.0); Mean Corp Hgb Conc 32.1 g/dL (32-36); Mean Corpuscular Hgb 28.9 pg (27.0-32.0); Mean Corpuscular Volume 89.9 fL (81-99); Mean Platelet Vol. 11.5 fl (6.2-12.0); Platelet Count 286 K/mm3 (150-450); RBC Distribution Width CV 13.1 % (11.6-14.6); RBC Distribution Width SD 42.5 fl (35.1-43.9); Red Blood Count 3.95 M/mm3 (4.2-5.4); White Blood Count 14.5 K/mm3 (4.4-11.0)
[2020-09-09] MEDS: Acetaminophen/Butalbital/Caffe 1 Tablet 2 TABLET PO (12:13)
[2020-09-09 12:24] LABS: Protein, Urine (Random) 55.8 mg/dL (<11.9); Protein:Creat Ratio 189 mg/g CRE (0-200)
[2020-09-09 12:33] LABS: AST(SGOT) 16 U/L (15-37); Alanine Aminotransfer ALT/SGPT 16 U/L (13-56); Creatinine, Serum 0.74 mg/dL (0.55-1.02); EST Glomerular Filtration Rate 95 mL/min (>60); Est Glom Filt Rate - Afr Amer 115 mL/min (>60); Estimated Creatinine Clearance 105.15 ml/min; Uric Acid 4.6 mg/dL (2.6-6.0)
[2020-09-09 12:40] LABS: Fetal Fibronectin Negative
[2020-09-09 13:24] LABS: Group B Strep DNA By PCR Negative (Negative); Internal Control PASS; Probe Check PASS; Specimen Processing Control PASS
--- NOTE | 2020-09-12 11:48 | OB.TRI.NOTE ---
- Problem List (1) 33 weeks gestation of Status: Acute (2) Headache in Status: Acute (3) Nausea/vomiting in Status: Acute (4) History of type 1 diabetes mellitus Status: Chronic History of Present Illness Date of Service: 09/09/20 Was patient seen by the physician?: No Reason For Visit: R/O PRE-E Date of Service: 09/09/20 Final APRIL: 10/26/20 Gestational age: 33 Weeks and 5 Days History of Present Illness: Was seen in the office for a likely migraine headache, nausea, vomiting, and inability to tolerate p.o., contractions, upper abdominal pain. Sent over to labor and delivery for labs, medications, IV fluid hydration after evaluation of the office. Allergies shellfish derived Allergy (Verified 09/09/20 10:27) Vomiting - Pertinent Past Medical History Medical History: Past Medical History (Last Reviewed 09/05/20 @ 09:[address] Red Campos MD) Hypothyroidism Type 1 diabetes Dx : age 17 Last exacerbation : DKA : 2008 Hypoglycemic episode : never ER visit : 2008 Uncontrolled type 1 diabetes mellitus Surgical History: Past Surgical History (Last Reviewed 09/05/20 @ 09:[address] Red Campos MD) H/O: Laboratory Studies: Laboratory Tests 09/09/20 09/09/20 09/09/20 Range/Units 11:55 11:55 11:55 WBC (4.4-11.0) K/mm3 RBC (4.2-5.4) M/mm3 Hgb (12.0-15.0) g/dL Hct (37-47) % MCV (81-99) fL MCH (27.0-32.0) pg MCHC (32-36) g/dL RDW Std Deviation (35.1-43.9) fl RDW Coeff of [place]uly (11.6-14.6) % Plt Count (150-450) K/mm3 MPV (6.2-12.0) fl Creatinine (0.55-1.02) mg/dL Estim Creat Clear Calc ml/min Est GFR (MDRD) Af Amer (>60) mL/min Est GFR (MDRD) Non-Af (>60) mL/min Uric Acid (2.6-6.0) mg/dL AST (15-37) U/L ALT (13-56) U/L U Random Total Protein 55.8 H (<11.9) mg/dL Urine Creatinine 295.00 (NO RANGE EST.) mg/dL Protein/Creatinin Ratio 189 (0-200) mg/g CRE Group B Strep DNA Negative (Negative) Fibronectin Negative Miscellaneous Test Specimen Comment Not Reportable 09/09/20 09/09/20 09/09/20 Range/Units 11:18 11:18 11:18 WBC 14.5 H (4.4-11.0) K/mm3 RBC 3.95 L (4.2-5.4) M/mm3 Hgb 11.4 L (12.0-15.0) g/dL Hct 35.5 L (37-47) % MCV 89.9 (81-99) fL MCH 28.9 (27.0-32.0) pg MCHC 32.1 (32-36) g/dL RDW Std Deviation 42.5 (35.1-43.9) fl RDW Coeff of Yuly 13.1 (11.6-14.6) % Plt Count 286 (150-450) K/mm3 MPV 11.5 (6.2-12.0) fl Creatinine 0.74 (0.55-1.02) mg/dL Estim Creat Clear Calc 105.15 ml/min Est GFR (MDRD) Af Amer 115 (>60) mL/min Est GFR (MDRD) Non-Af 95 (>60) mL/min Uric Acid 4.6 (2.6-6.0) mg/dL AST 16 (15-37) U/L ALT 16 (13-56) U/L U Random Total Protein (<11.9) mg/dL Urine Creatinine (NO RANGE EST.) mg/dL Protein/Creatinin Ratio (0-200) mg/g CRE Group B Strep DNA (Negative) Fibronectin Miscellaneous Test Specimen Comment Physical Exam Vitals: Vital Signs Temp Pulse BP 98.1 F 85 137/61 H 09/09/20 12:01 09/09/20 11:41 09/09/20 11:41 NST - FHR Rate Baby A Baseline: 130 Variability:: Moderate Accelerations:: 15 x 15 Decelerations:: None NST Reactive:: Yes FHR Category:: Category I Uterine Activity:: Irregular Impression/Plan Pre-e work-up was negative. Her blood pressures were normal. All of her symptoms resolved. No hyperreflexia on exam. NST reactive. FFN negative. Discharge home with follow-up in the office.
== END 2020-09-09 13:10 | disposition home or self-care (01) ==
LOC: WPOUT 10:16 → WP 10:17
PROVIDERS: Obstetrics & Gynecology; Referring Provider Advanced Practice Midwife; Visit Provider Advanced Practice Midwife
DX: O26.893 Other specified pregnancy related conditions, third trimester (principal); R51.9 Headache, unspecified; R10.10 Upper abdominal pain, unspecified; R11.2 Nausea with vomiting, unspecified; O24.013 Pre-existing type 1 diabetes mellitus, in pregnancy, third trimester; E10.9 Type 1 diabetes mellitus without complications; Z3A.33 33 weeks gestation of pregnancy; Z79.4 Long term (current) use of insulin
CPT/HCPCS: 96361; 96374; 36415; 59025; 59050; 82565; 82570; 82731; 84156; 84450; 84460; 84550; 85027; 87081; 87653; 99218; J7120; G0378

== ENCOUNTER → 2020-09-26 14:56 | Outpatient (CLI) | payer MEDICAID, SELFPAY ==
[2020-09-09 10:30] VITALS: BMI 36.4
== END ==
PROVIDERS: Visit Provider Obstetrics & Gynecology
DX: Z03.818 Encounter for observation for suspected exposure to other biological agents ruled out (principal)
CPT/HCPCS: 87635; C9803; U0002

== ENCOUNTER 2020-10-01 05:11 | Inpatient (IN) | payer MEDICAID, SELFPAY ==
[2020-06-03 15:23] VITALS: BMI 32.5
[2020-09-09 10:30] VITALS: BMI 36.4
--- NOTE | 2020-09-26 16:32 | HP.PCM_ITS ---
History and Physical Date of Admission: 10/01/20 Francy Angulo Physician Specialty: INTERVENTIONAL CARDIOLOGIST H&P Signed Encounter Date: 09/25/2020 Expand AllCollapse All Expand widget buttonCollapse widget button Hide copied text Hover for detailscustomization button Pre-Op History and Physical HPI: The patient is a 34 year old female presenting for pre-operative visit. She is scheduled for and bilateral salpingectomy, for h/o classical cs, type 1 DM, on 10/01/20. Procedure discussed along with risks, benefits and complications. Other alternatives discussed for management. Consent form signed? Yes. PAST MEDICAL HISTORYExpand by Default PAST MEDICAL HISTORY Diagnosis Date ? Branch retinal artery occlusion 2019 ? History of pre-eclampsia in prior , currently ? History of delivery, currently ? Placental abruption ? Thyroid disease ? Type I (juvenile type) diabetes mellitus without mention of complication, not stated as uncontrolled (HCC) ? Unspecified , without mention of complication, unspecified 2006 9 wks, miscarriage PAST SURGICAL HISTORY PAST SURGICAL HISTORY Procedure Laterality Date ? DELIVERY ONLY 2005& 2007 & 2011 , low cervical CURRENT MEDICATIONS Current Outpatient Medications Medication Sig Dispense Refill ? ondansetron orally disintegrating (ZOFRAN ODT) 4 mg disintegrating tablet Take 1 tablet by mouth every 8 hours as needed. DISSOLVE ON TONGUE 30 tablet 2 ? omeprazole (PRILOSEC) 20 mg capsule Take 1 capsule by mouth once daily. 30 capsule 1 ? aspirin, enteric coated (ASPIRIN, ENTERIC COATED) 81 mg EC tablet Take 81 mg by mouth once daily. ? flash glucose sensor kit Flash Glucose Sensor Flash Glucose Sensor Active 0 .MEDSUPPLY 2 November 28, 2019 11:33am As directed 11-28-2019 [facility] ([id number]) ? FREESTYLE MARY 14 DAY SENSOR kit ? OMNIPOD DASH 5 PACK POD crtg CHANGE 1 POD EVERY 72 HOURS ? HYDROXYprogest,PF,,preg presv, (ABIGAIL, PF,) 275 mg/1.1 mL AutoInjector Inject 1.1 mL subcutaneously one time a week for 21 doses. 4.4 mL 5 ? Uctsyejn-Sn-Qax-Fe-FA ( VITAMIN) tab Take 1 tablet by mouth once daily. ? insulin lispro (HUMALOG) 100 unit/mL injection As directed on insulin pump (approx 75 units), E10.9 70 mL 0 ? blood sugar diagnostic (CONTOUR NEXT STRIPS) test strip Testing 4-5 times daily 450 Strip 3 ? Insulin Syringe-Needle U-100 (INSULIN SYRINGE) 1/2 mL 30 x 5/16 syrg Use 1 syringe for each dose 4-6/day 100 Syringe 11 ? lancets (ONE TOUCH DELICA LANCETS) 30 gauge misc use as directed 4-5 times daily 500 Each 4 ? Blood-Glucose Meter (MAX BLOOD GLUCOSE METER) misc Test 4-5 times daily 150 Each 11 ? COMPOUNDED PRESCRIPTION [place] Glucose Meter use as directed 1 meter 0 ? glucagon,human recombinant(GLUCAGON EMERGENCY 1 MG INJECTION KIT) use as directed, call if used 1 kit 3 ? syring w-ndl,disp,insul,0.3ml(BD INSULIN SYRINGE ULT-FINE II 0.3 ML 31 X 5/16) use as directed 100 11 ? FREESTYLE LANCETS use as directed 100 11 ? PEN NEEDLES 31 X 5/16 Use as directed. 100 11 No current facility-administered medications for this visit. ALLERGIES: Shellfish Containing Products PERSONAL HISTORY: SOCIAL HISTORY Social History Tobacco Use ? Smoking status: Never Smoker ? Smokeless tobacco: Never Used Substance Use Topics ? Alcohol use: No ? Drug use: No FAMILY HISTORY: FAMILY HISTORY FAMILY HISTORY Problem Relation Age of Onset ? None Mother ? None Father ? Heart Attack Father ? None Brother ? None Sister ? Hypertension Paternal Grandfather ? Heart Attack Paternal Grandfather ? other (thyroid disease) Paternal Grandmother ? Cancer Maternal Grandmother Lung Cancer ? Cancer Maternal Grandfather Stomach Cancer ? other ([place]) Maternal Grandfather ? No Known Problems Son ? No Known Problems Son ? No Known Problems Son REVIEW OF SYMPTOMS: negative except as noted above PHYSICAL EXAMINATION: VITALS: Blood pressure 116/70, weight 238 lb (108 kg), last menstrual period 01/20/2020. GENERAL: The patient is well nourished, well hydrated in no acute distress. , The patient is oriented to time, place, and person. NECK: full range of motion GENITALIA: Normal external genitalia, Urethral meatus normal and Cervix closed and thick A/P: Repeat c/s And salpingectomy at 36+ weeks gestation (EDC 4/10/21) ERAS protocol reviewed - will not drink ensure due to DM Consent signed Pt has been counseled on risks/benefits and alternatives of surgery including but not limited to anesthesia, bleeding, infection, injury to pelvic structures including bowel, bladder, ureters and vessels. Pt wishes to proceed with surgery at this time. No [place] due to DM not recommend per MFM I have reviewed and updated past medical and surgical history, medications and allergies Francy Angulo MD
[2020-10-01] VITALS (21 sets, daily range): BP systolic 98–147; BP diastolic 46–78; PULSE 77–116; RESP 16–18; TEMP 36.2–37; O2SAT 16–100; BMI 36.8
--- NOTE | 2020-10-01 | PLAC_PTH ---
PATIENT: ANGELIC WILSON LOC: [facility] U#:[id number] AGE/SX: 35/F ROOM: WP001 RE10/01/[address]: Dr. Francy Maya, MDDOB: 1985 BED: 1 DIS: 10/04/2020 SPEC #: [id number] RECD: 10/01/20 11:33 STATUS: JANET JOSE #: [id number] COSTA: 10/01/20 00:[address]: Francy Maya DEPT: SURGICAL PATHOLOGY RECD BY: Oleg Ayoub ENTERED: 10/01/20 11:33 SP TYPE: PLACENTA OT DR: No Primary Care Phys Tissues: A - Placenta, NOS B - Fallopian tube Procedures: Surgery Specimen Level II Surgery Specimen Level IV Surgery Specimen Level V HEADER OPERATION: Primary section PRE-OP DIAGNOSIS: Type 1 diabetes TISSUE SUBMITTED: A - Placenta, B - Bilateral fallopian tubes MICROSCOPIC DIAGNOSIS A. Ascencio placenta (560 gm): Umbilical cord - trivascular with no inflammation. Placental membranes - no pathologic change. Placental disc - Dmitriy-Ramone change and mildly increased intraparenchymal fibrin plaques. B. Right and left fallopian tubes, bilateral salpingectomies: Right fallopian tube - benign paratubal cyst. Complete segment of fallopian tube. Left fallopian tube - no pathologic change. AM:erwin 10/03/2020 MICROSCOPIC DESCRIPTION Slides are reviewed. GROSS DESCRIPTION A - SPECIMEN: PLACENTA / CLINICAL INFORMATION: A. Weight: 3.895 kg B. Gestational Age: 36 weeks C. Sex: Male PLACENTAL WEIGHT (POST FIXATION): 560 gm PLACENTAL DIMENSIONS: 19 x 15 x 3 cm PLACENTAL SHAPE: Usual ovoid PLACENTAL WEIGHT FOR GESTATIONAL AGE: Within 10-99th percentile MEMBRANES - Present A. Insertion: Marginal B. Site of rupture from edge: At edge of placental disc C. Color of membrane: Fletcher-garza D. Abnormalities: None UMBILICAL CORD - Present A. Color: Fletcher-garza B. Insertion: Eccentric C. Length: 51 cm D. Diameter: 1.5 cm E. Number of vessels: Three F. Abnormalities: None PLACENTAL DISC - Present A. Color of surface: Fletcher-garza B. surface abnormalities: None C. Maternal cotyledons: Intact with minimal tears D. Attached retro placental clot: No clot E. Cut surface: Dark red and spongy F. Lesions: None G. Separate clot: 7 x 5 x 2 cm SECTIONS SUBMITTED: 1. Umbilical cord ( end notched) 2. Umbilical cord, placental end 3. Membrane roll 4. Placental disc, and maternal surfaces 5. Placental disc, and maternal surfaces 6. Placental disc, and maternal surfaces B - Received in fixative is one container labeled with the patient's name and designated bilateral fallopian tubes, suture in left tube. The specimen consists of two fallopian tubes with an average length of 7 cm and has an average diameter of 0.8 cm. Both fallopian tubes have normal fimbriated ends. The right fallopian tube has a paratubal cyst measuring 1.8 cm and containing clear fluid. Director Of [employer]aur[employer] sections are submitted in two cassettes as follows: 1 - right fallopian tube, 2 - left fallopian tube. / AM:erwin 10/02/20 TC:5 CPT: 76427, 14074, 20887
[2020-10-01] MEDS: Lactated Ringers 1,000 ML 999 ML IV ×2 (05:45→17:41)
--- NOTE | 2020-10-01 05:52 | NURSING ---
BGT result from pt's continuous glucose monitor.
[2020-10-01 06:01] LABS: Absolute Lymphocyte Count 2.51 X10^3/uL (0.83-4.51); Absolute Neutrophil Count 7.5 X10^3/uL (2.0-7.7); Basophil# 0.04 X10^3/uL; Basophil% 0.4 % (0-1); Eosinophil# 0.06 X10^3/uL; Eosinophils% 0.6 % (0-5); Hematocrit 35.4 % (37-47); Hemoglobin 11.8 g/dL (12.0-15.0); Lymphocyte # 2.51 X10^3/ul (4.0); Mean Corp Hgb Conc 33.3 g/dL (32-36); Mean Corpuscular Hgb 29.3 pg (27.0-32.0); Mean Corpuscular Volume 87.8 fL (81-99); Mean Platelet Vol. 12.6 fl (6.2-12.0); Monocyte# 0.78 X10^3/uL; Monocyte% 7.2 % (0-10); NRBC Flagged by Analyzer 0 % (0-5); Neutrophil # 7.46 X10^3/uL (2.7-7.7); Neutrophil % 68.3 % (47-70); Platelet Count 254 K/mm3 (150-450); RBC Distribution Width CV 13.2 % (11.6-14.6); RBC Distribution Width SD 42.5 fl (35.1-43.9); Red Blood Count 4.03 M/mm3 (4.2-5.4); White Blood Count 10.9 K/mm3 (4.4-11.0)
[2020-10-01] MEDS: Ondansetron 4 MG/2 ML Vial IV ×2 (06:43→11:14)
[2020-10-01] MEDS: Acetaminophen 500 MG Tablet 1000 MG PO ×3 (06:43→18:44)
[2020-10-01] MEDS: Lactated Ringers 1,000 ML 150 ML IV (06:46)
[2020-10-01] MEDS: Sodium Citrate/Citric Acid 30 ML UDC PO (07:12)
--- NOTE | 2020-10-01 07:15 | PCM.OPRPT ---
Delivery Classification: Scheduled Final APRIL: 10/26/20 - Start time 0732, end time 08 Final APRIL Source: US <20 weeks Gestational age: 36 Weeks and 3 Days fleet service manager: Abdias Taylor Type of Anesthesia:: Spinal Implants Used: none Date of Procedure: 10/01/20 - Repeat Low Transverse C/S and Bilateral salpingectomy performed. Pre-Operative Diagnosis: gestation, type 1DM, History of classical c/s, history of delivery, LGA, desires sterilization Post-Operative Diagnosis: same, live male Indications: previous classical cs, Description of Procedure: After informed consent was obtained the patient was taken to the operating room she was given spinal anesthesia. He was placed in the supine position. She was then prepped and draped in normal sterile fashion. Once spinal anesthesia was found to be adequate skin incision was made with a scalpel in a Pfannenstiel fashion. It was carried down to the underlying layer of the fascia. Fascia was then incised midline with scapel and extended laterally using curved santa. 2 straight Monserrat's were placed in the superior aspect of the fascial edge and the rectus muscles were dissected off sharply. Attention was then turned to the inferior aspect where again the fascial edge was grasped with 2 straight [place] clamps tented up and the rectus muscle dissected off sharply. At this time the rectus muscles were grasped in the midline using 2 Allis clamps and scalpel was used to separate the rectus muscles. Metzenbaums were used to take down the rectus muscles inferiorly as well as the peritoneum. Using blunt force the peritoneum was then entered. adhesions to from bladder to anterior uterus - taken down with metzenbaums. Lower uterine segment identified- and noted to be very thin. Uterine incision was made in a low transverse fashion with the scalpel and then entered bluntly. Gentle opposing traction was placed to extend the uterine incision. The membranes were ruptured amniotic fluid clear. Infant's head was then brought to the uterine incision was delivered atraumatically followed by the rest 's body. time was 0740. At this time delayed cord clamping was performed mouth nose were suctioned. Infant was then handed to the waiting nursery team. The placenta was then removed with gentle traction. The uterus was removed from the intra-abdominal cavity is wrapped in a moist lap. He was cleared of all clots and debris using a moist lap. Ring clamps were placed on the uterine angles. #1 Vicryl suture was used in a running locked fashion for the first layer. Couple [id number] sutures with a #1 Vicryl were placed on the anterior aspect of the uterus for hemostasis where adhesions were taken down. Tubes and ovaries were evaluated they were normal. The right tube was grasped in an avascular area with the Orbisonia ligasure used to coagulate and ligate along mesosalpinx to remove fallopian tube in entirety. It was then placed back in the intra-abdominal cavity and again the left fallopian tube was grasped in an avascular area with a Orbisonia and removed in its entirety with the LigaSure. Great hemostasis was appreciated at this time the uterine incision was again evaluated good hemostasis was appreciated. Sandeep placed over uterine incision. The peritoneum was grasped with Kellys. Peritoneum was reapproximated using #2 Vicryl suture in a running fashion. The fascia was then reapproximated using #1PDS in a running fashion. Subcutaneous layer was evaluated and Bovie was used for any small oozing that was noted per #2-0 plain gut suture was then used to reapproximate the subcutaneous layer 4-0 monocryl was used to reapproximate the skin in a subcutaneous fashion. Dry sterile dressing was applied. Instrument lap needle count were correct ?2. Anticipated normal postoperative course for this patient. Amniotic Membrane Rupture Type: Artificial Amniotic Fluid Description: Clear Placenta Disposition: Routine to Lab Specimen(s) sent to pathology: placenta, bilateral fallopian tubes Drain: Muniz to straight drain Fluids Replaced: 1000 Cord Entanglement: None Cord Vessel Description: 3 Vessels Esitmated Blood Loss (ml): 700 Infant Gender: Male (1 minute): 8 (5 minute): 8 Delayed cord clamping: Yes Antibiotic Given: Ancef 2 grams IV x1 Pt instructed on risks of surgery: Bleeding, Anesthesia Risks, Infection, Permanency, Failure Rate of 1 to 2%, Injury to surrounding structure(s) including bowel and bladder, Availability of other non-permanent control options - Admit VTE Documentation VTE Present on Admission: Yes VTE Mechan Device Prophylaxis: SCD's VTE Pharm Prophylaxis ordered?: Yes
[2020-10-01] MEDS: Cefazolin 2 GM in 0.9% Normal Saline 100 ML IV (07:16)
[2020-10-01] MEDS: Oxytocin 30 units/NS 500 ml 30 UNITS/500 ML IV.SOLN 167 UNITS IV (07:25)
[2020-10-01 08:45] LABS: Pathology Specimen OB SEE PATHOLOGY REPORT
[2020-10-01] MEDS: Ketorolac 30 MG/ML Syringe IV ×2 (08:51→14:42)
[2020-10-01 09:27] LABS: Pathology Specimen OB SEE PATHOLOGY REPORT
[2020-10-01] MEDS: Insulin Basal Pump 1 UNIT SC (10:19)
[2020-10-01] MEDS: Lactated Ringers 1,000 ML 100 ML IV (15:33)
[2020-10-01] MEDS: proCHLORPERazine 10 MG/2 ML Vial IV (15:52)
[2020-10-01] MEDS: 0.9% Saline Lock 10 ML Syringe IV (15:52)
--- NOTE | 2020-10-01 20:18 | NURSING ---
2018- Pt. blood glucose 74 per CGM monitor.
[2020-10-01] MEDS: Enoxaparin 40 MG/0.4 ML Syringe SC (20:19)
[2020-10-01] MEDS: Lactated Ringers 500 ML IV.SOLN. IV (23:45)
[2020-10-01] MEDS: Famotidine 20 MG Tablet PO (23:46)
[2020-10-02] MEDS: Acetaminophen 500 MG Tablet 1000 MG PO ×4 (01:12→19:08)
--- NOTE | 2020-10-02 01:57 | NURSING ---
2346- Pt. scanned her CGM and result 46 mg/dL. Pt. reports that she feels low but is fine. This RN asked to perform fingerstick but pt. denied, stating she just needed to drink her juice that was on the bedside table and would be fine. This RN offered other snacks or additional juice but pt. denied, stating she might also eat her banana. This RN asked pt. to check her CGM again 15-20 minutes after juice, and pt. reports feeling better than that her sugar was coming up. Next result from CGM 78. Pt. denies any symptoms. Will continue to monitor pt.
--- NOTE | 2020-10-02 02:05 | NURSING ---
Late entry d/t pt. care: Previous dayshift RNs told this RN in report that pt. just received a 1000cc bolus d/t low urine output throughout the day right before shift change. Pt. had been vomitting intermittently throughout the afternoon. During admission assessment, this RN emptied pt. catheter at 2020 for 150cc. Urine concentrated, wm in color but lightening up in color in the tube of the catheter. At 230, this RN got a Volutainer to assess output again, this time only measuring about 45cc of dark yellow urine, equalling about 15cc/hr over the past 3 hours. forge helper Rishi Ruelas updated about pt's urinary output status. At 2320 pt. was bladder scanned, with scanner only showing about 100cc of urine in the bladder. Fundus firm and midline at u/u. This RN called OB store protection specialist, Dr. Tyler, at 2329 asking if CBC should be drawn or if pt. needed another bolus or Lasix. Order given for a 500cc bolus. OB asked RN to watch output closely overnight and draw CBC at ordered 0600 time. [address] left in place to monitor strict I&O at this time.
[2020-10-02] MEDS: Ketorolac 30 MG/ML Syringe IV (03:33)
[2020-10-02] MEDS: 0.9% Saline Lock 10 ML Syringe IV (03:34)
[2020-10-02 04:45] VITALS: BP 116/65; PULSE 77; RESP 16; TEMP 36.5; O2SAT 99
[2020-10-02 04:50] LABS: Hematocrit 28.7 % (37-47); Hemoglobin 9.3 g/dL (12.0-15.0); Mean Corp Hgb Conc 32.4 g/dL (32-36); Mean Corpuscular Volume 89.4 fL (81-99); Mean Platelet Vol. 11.5 fl (6.2-12.0); Platelet Count 211 K/mm3 (150-450); RBC Distribution Width CV 13.3 % (11.6-14.6); RBC Distribution Width SD 43.8 fl (35.1-43.9); Red Blood Count 3.21 M/mm3 (4.2-5.4)
--- NOTE | 2020-10-02 04:59 | NURSING ---
0445- Pt. output increasing, light yellow in color. In 71 minutes, pt. had 150cc of urinary output. Catheter was discontinued at this time.
--- NOTE | 2020-10-02 05:04 | NURSING ---
0445- Pt. morning blood sugar was 78 mg/dL per continuous glucose monitor.
[2020-10-02 08:00] VITALS: BP 125/72; PULSE 76; RESP 16; TEMP 36.4
--- NOTE | 2020-10-02 08:08 | PN.OBGYN_ITS ---
Subjective: patient seen at bedside, doing well. pt reports good pain control. lochia mild. BS well controlled per patient- FS 78 this morning. baby in SCN for BS control. Breast feeding. passing flatus, fowler just removed. - Physical Exam Vitals/I&O's: Vital Signs Temp Pulse Resp BP Pulse Ox 97.7 F L 77 16 116/65 99 10/02/20 04:45 10/02/20 04:45 10/02/20 04:45 10/02/20 04:45 10/02/20 04:45 Oxygen Delivery Method Room Air Weight: 106.866 kg Body Mass Index (BMI) 36.8 Finger Stick Blood Glucose 198 Intake and Output for Last 24 Hours 09/30/20 10/01/20 10/02/20 23:59 23:59 23:59 Intake Total 3760 / 3760 785 / 785 Output Total 295 / 295 290 / 290 Balance 3465 / 3465 495 / 495 General: Alert, Oriented x3 Abdomen: Soft, Non-Distended, Passing Flatus, - - fundus firm. Dressing dry and intact Extremities: No Calf Tenderness Laboratory Results 10/02/20 04:45: WBC 10.0, RBC 3.21 L, Hgb 9.3 L, Hct 28.7 L, MCV 89.4, MCH 29.0, MCHC 32.4, RDW Std Deviation 43.8, RDW Coeff of Yuly 13.3, Plt Count 211, MPV 11.5 Current Medications Acetaminophen (Acetaminophen 500 Mg Tablet) 1,000 mg PO Q6H [facility] Last Admin: 10/02/20 01:12 Dose: 1,000 mg Documented by: Bisacodyl (Bisacodyl 10 Mg Suppository) 10 mg RC UD PRN PRN Reason: If no BM Calcium Carbonate (Calcium Carbonate 500 Mg Tablet) 500 mg PO Q6H PRN PRN PRN Reason: HEARTBURN Dextrose (Dextrose 50%-Water 25 Gm/50 Ml Disp.Syrin) 0 gm IV X1 PRN; Protocol PRN Reason: Hypoglycemia Diphenhydramine HCl (Diphenhydramine 25 Mg Capsule) 25 mg PO Q6H PRN PRN PRN Reason: ITCHING Stop: 10/02/20 08:35 Enoxaparin Sodium (Enoxaparin 40 Mg/0.4 Ml Syringe) 40 mg SC DAILY@2200 [facility] Last Admin: 10/01/20 20:19 Dose: 40 mg Documented by: Famotidine (Famotidine 20 Mg Tablet) 20 mg PO DAILY [facility] Last Admin: 10/01/20 23:46 Dose: 20 mg Documented by: Glucagon (Glucagon 1 Mg/Ml Syringe) 1 mg IM .X1 PRN PRN Reason: Hypoglycemia Hydrocortisone (Hydrocortisone 2.5% Crm) 1 applic TOPICAL TID PRN PRN; Protocol PRN Reason: Discomfort Lactated Ringer's () 1,000 mls @ 100 mls/hr IV .Q10H [facility] Last Admin: 10/02/20 04:57 Dose: Not Given Documented by: Ibuprofen (Ibuprofen 600 Mg Tablet) 600 mg PO Q6H [facility] Insulin Aspart (Insulin Basal Pump) 1 unit SC Q24 [facility] Last Admin: 10/01/20 10:19 Dose: 1 unit Documented by: Methylergonovine Maleate (Methylergonovine 0.2 Mg/Ml Ampul) 0.2 mg IM X1 PRN PRN Reason: Uterine Atony Nalbuphine HCl (Nalbuphine 10 Mg/Ml Ampul) 5 mg IV Q3H PRN PRN PRN Reason: ITCHING Stop: 10/02/20 08:35 Naloxone HCl (Naloxone 0.4 Mg/Ml Syringe) 0.02 mg IV Q1M PRN PRN Reason: RR <10 and pt unresponsive Ondansetron HCl (Ondansetron 4 Mg/2 Ml Vial) 4 mg IV Q4H PRN PRN PRN Reason: Nausea Last Admin: 10/01/20 11:14 Dose: 4 mg Documented by: Oxycodone HCl (Oxycodone 5 Mg Tablet) 5 - 10 mg PO Q4H PRN PRN PRN Reason: Pain Score 4-10 Prochlorperazine Edisylate (Prochlorperazine 10 Mg/2 Ml Vial) 10 mg IV Q6H PRN PRN PRN Reason: NAUSEA Last Admin: 10/01/20 15:52 Dose: 10 mg Documented by: Senna/Docusate Sodium (Senna/Docusate Sodium 1 Tablet) 1 - 2 tablet PO DAILY [facility] Last Admin: 10/01/20 13:28 Dose: Not Given Documented by: Simethicone (Simethicone 80 Mg Tablet) 80 mg PO [facility] PRN PRN Reason: Indigestion/stomach pain Sodium Chloride (0.9% Saline Lock 10 Ml Syringe) 5 - 15 ml IV UD PRN PRN Reason: SALINE FLUSH Last Admin: 10/02/20 03:34 Dose: 10 ml Documented by: Medical Necessity - Tobacco Use Smoking Status: Never smoker Assessment/Plan All Active Problems (Last Reviewed 09/05/20 @ 09:[address] Red Campos MD) 33 weeks gestation of (Acute) Headache in (Acute) Nausea/vomiting in (Acute) Type 1 diabetes mellitus affecting in second trimester, antepartum (Acute) Diabetic ketoacidosis associated with type 1 diabetes mellitus (Acute) Sinus tachycardia by electrocardiogram (Acute) Chest pain (Acute) POD#1, doing well routine care pain mgmt voiding trial monitor VS and BS
--- NOTE | 2020-10-02 08:49 | NURSING ---
PT stated that her FBS this am is 74 and breakfast ordered at this time. No further interventions needed at this time.
[2020-10-02] MEDS: Senna/Docusate Sodium 1 Tablet PO (10:34)
[2020-10-02] MEDS: Ibuprofen 600 MG Tablet PO ×3 (10:34→21:58)
[2020-10-02] MEDS: Insulin Basal Pump 1 UNIT SC (10:36)
[2020-10-02 13:22] VITALS: BP 125/75; PULSE 75; RESP 16; TEMP 36.4
--- NOTE | 2020-10-02 13:25 | NURSING ---
Pt took BS from left upper arm to cellphone prior to eating lunch and it was 44. Pt did not give any bolus and ate all of lunch. Pt messaged her endocrinalogist for direction since this was an expectation after delivery.
[2020-10-02 20:08] VITALS: BP 123/67; PULSE 80; RESP 16; TEMP 36.8; O2SAT 98
[2020-10-02] MEDS: Enoxaparin 40 MG/0.4 ML Syringe SC (21:59)
[2020-10-03 01:56] VITALS: BP 125/72; PULSE 81; RESP 16; O2SAT 99
[2020-10-03] MEDS: Acetaminophen 500 MG Tablet 1000 MG PO ×4 (01:59→21:25)
[2020-10-03] MEDS: Ibuprofen 600 MG Tablet PO ×4 (03:14→21:26)
--- NOTE | 2020-10-03 08:57 | PCM.PROGNOTE ---
Subjective: Doing well per patient nursing staff. Ambulating and taking p.o. without difficulty. Pain controlled. Blood sugars controlled per patient. Denies any headache, visual changes, chest pain, shortness of breath, leg pain, increased vaginal bleeding or clots. - Physical Exam Vitals/I&O's: Vital Signs Temp Pulse Resp BP Pulse Ox 98.2 F 81 16 125/72 H 99 10/02/20 20:08 10/03/20 01:56 10/03/20 01:56 10/03/20 01:56 10/03/20 01:56 Oxygen Delivery Method Room Air Weight: 235 lb 9.6 oz Body Mass Index (BMI) 36.8 Finger Stick Blood Glucose 198 Intake and Output for Last 24 Hours 10/01/20 10/02/20 10/03/20 23:59 23:59 23:59 Intake Total 3760 / 3760 785 / 785 Output Total 295 / 295 1365 / 1365 350 / 350 Balance 3465 / 3465 -580 / -580 -350 / -350 General: Alert, Oriented x3, Cooperative HEENT: Atraumatic, Normocephalic Neck: Trachea Midline Lungs: Clear to auscultation, Normal air movement, No rhonchi, No wheeze Cardiovascular: Regular rate, Regular Rhythm, No murmurs Abdomen: Bowel Sounds Present, Soft - Fundus firm 2 below U. Dressing dry and intact Extremities: No edema - Migel's negative bilaterally Psych/Mental Status: Normal Affect, Appropriate Current Medications Acetaminophen (Acetaminophen 500 Mg Tablet) 1,000 mg PO Q6H [facility] Last Admin: 10/03/20 01:59 Dose: 1,000 mg Documented by: Bisacodyl (Bisacodyl 10 Mg Suppository) 10 mg RC UD PRN PRN Reason: If no BM Calcium Carbonate (Calcium Carbonate 500 Mg Tablet) 500 mg PO Q6H PRN PRN PRN Reason: HEARTBURN Dextrose (Dextrose 50%-Water 25 Gm/50 Ml Disp.Syrin) 0 gm IV X1 PRN; Protocol PRN Reason: Hypoglycemia Enoxaparin Sodium (Enoxaparin 40 Mg/0.4 Ml Syringe) 40 mg SC DAILY@2200 [facility] Last Admin: 10/02/20 21:59 Dose: 40 mg Documented by: Famotidine (Famotidine 20 Mg Tablet) 20 mg PO DAILY [facility] Last Admin: 10/01/20 23:46 Dose: 20 mg Documented by: Glucagon (Glucagon 1 Mg/Ml Syringe) 1 mg IM .X1 PRN PRN Reason: Hypoglycemia Hydrocortisone (Hydrocortisone 2.5% Crm) 1 applic TOPICAL TID PRN PRN; Protocol PRN Reason: Discomfort Ibuprofen (Ibuprofen 600 Mg Tablet) 600 mg PO Q6H [facility] Last Admin: 10/03/20 03:14 Dose: 600 mg Documented by: Insulin Aspart (Insulin Basal Pump) 1 unit SC Q24 [facility] Last Admin: 10/02/20 10:36 Dose: 1 unit Documented by: Methylergonovine Maleate (Methylergonovine 0.2 Mg/Ml Ampul) 0.2 mg IM X1 PRN PRN Reason: Uterine Atony Naloxone HCl (Naloxone 0.4 Mg/Ml Syringe) 0.02 mg IV Q1M PRN PRN Reason: RR <10 and pt unresponsive Ondansetron HCl (Ondansetron 4 Mg/2 Ml Vial) 4 mg IV Q4H PRN PRN PRN Reason: Nausea Last Admin: 10/01/20 11:14 Dose: 4 mg Documented by: Oxycodone HCl (Oxycodone 5 Mg Tablet) 5 - 10 mg PO Q4H PRN PRN PRN Reason: Pain Score 4-10 Prochlorperazine Edisylate (Prochlorperazine 10 Mg/2 Ml Vial) 10 mg IV Q6H PRN PRN PRN Reason: NAUSEA Last Admin: 10/01/20 15:52 Dose: 10 mg Documented by: Senna/Docusate Sodium (Senna/Docusate Sodium 1 Tablet) 1 - 2 tablet PO DAILY [facility] Last Admin: 10/02/20 10:34 Dose: 1 tablet Documented by: Simethicone (Simethicone 80 Mg Tablet) 80 mg PO PCHS PRN PRN Reason: Indigestion/stomach pain Last Admin: 10/02/20 21:58 Dose: 80 mg Documented by: Sodium Chloride (0.9% Saline Lock 10 Ml Syringe) 5 - 15 ml IV UD PRN PRN Reason: SALINE FLUSH Last Admin: 10/02/20 03:34 Dose: 10 ml Documented by: Medical Necessity - Tobacco Use Smoking Status: Never smoker Assessment/Plan All Active Problems (Last Reviewed 09/05/20 @ 09:[address] Red Campos MD) 33 weeks gestation of (Acute) Headache in (Acute) Nausea/vomiting in (Acute) Type 1 diabetes mellitus affecting in second trimester, antepartum (Acute) Diabetic ketoacidosis associated with type 1 diabetes mellitus (Acute) Sinus tachycardia by electrocardiogram (Acute) Chest pain (Acute) A:POD #2 Repeat LTCS Acute blood loss anemia P: 1. Routine and postoperative care. 2. Iron supplement for acute blood loss anemia 3. Discharge home tomorrow
[2020-10-03] MEDS: Senna/Docusate Sodium 1 Tablet PO (09:05)
[2020-10-03] MEDS: Famotidine 20 MG Tablet PO (09:15)
[2020-10-03] MEDS: Calcium Carbonate 500 MG Tablet PO ×2 (09:15→21:27)
[2020-10-03] MEDS: Insulin Basal Pump 1 UNIT SC (10:13)
[2020-10-03 10:16] VITALS: BP 149/68; PULSE 80; RESP 16; TEMP 36.6
[2020-10-03 14:00] VITALS: BP 139/72; PULSE 88; RESP 16; TEMP 36.1
[2020-10-03 21:18] VITALS: BP 132/69; PULSE 70; RESP 16; TEMP 36.6
[2020-10-03] MEDS: Enoxaparin 40 MG/0.4 ML Syringe SC (21:27)
[2020-10-04 01:49] VITALS: BP 130/68; PULSE 74; RESP 16; O2SAT 99
[2020-10-04] MEDS: Acetaminophen 500 MG Tablet 1000 MG PO ×3 (03:10→15:40)
[2020-10-04] MEDS: Ibuprofen 600 MG Tablet PO ×3 (03:11→15:40)
--- NOTE | 2020-10-04 08:26 | PCM.PN.OB ---
Subjective: Patient seen in room. Up ambulating and getting ready to shower. Pumping going well- got 2 oz. with last session. Pain controlled with Motrin and Tylenol. Passing flatus and had BM today. Denies any SOB, CP or dizziness. Patient to be discharged to [facility] status due to in [facility]. - Physical Exam Vitals/I&O's: Vital Signs Temp Pulse Resp BP Pulse Ox 97.9 F 74 16 130/68 H 99 10/03/20 21:18 10/04/20 01:49 10/04/20 01:49 10/04/20 01:49 10/04/20 01:49 Oxygen Delivery Method Room Air Weight: 235 lb 9.6 oz Body Mass Index (BMI) 36.8 Finger Stick Blood Glucose 198 Intake and Output for Last 24 Hours 10/02/20 10/03/20 10/04/20 23:59 23:59 23:59 Intake Total 785 / 785 Output Total 1365 / 1365 350 / 350 Balance -580 / -580 -350 / -350 General: Oriented x3 HEENT: Atraumatic Oral: Moist Mucosa Lungs: Normal air movement Cardiovascular: Regular rate Abdomen: Bowel Sounds Present, Soft, Passing Flatus Extremities: Capillary Refill Less than 3 Seconds, No Calf Tenderness Skin: No rashes Neurological: Cranial nerves II-XII grossly intact Psych/Mental Status: Normal Affect, Appropriate Current Medications Acetaminophen (Acetaminophen 500 Mg Tablet) 1,000 mg PO Q6H [facility] Last Admin: 10/04/20 03:10 Dose: 1,000 mg Documented by: Bisacodyl (Bisacodyl 10 Mg Suppository) 10 mg RC UD PRN PRN Reason: If no BM Calcium Carbonate (Calcium Carbonate 500 Mg Tablet) 500 mg PO Q6H PRN PRN PRN Reason: HEARTBURN Last Admin: 10/03/20 21:27 Dose: 500 mg Documented by: Dextrose (Dextrose 50%-Water 25 Gm/50 Ml Disp.Syrin) 0 gm IV X1 PRN; Protocol PRN Reason: Hypoglycemia Enoxaparin Sodium (Enoxaparin 40 Mg/0.4 Ml Syringe) 40 mg SC DAILY@2200 [facility] Last Admin: 10/03/20 21:27 Dose: 40 mg Documented by: Famotidine (Famotidine 20 Mg Tablet) 20 mg PO DAILY [facility] Last Admin: 10/03/20 09:15 Dose: 20 mg Documented by: Glucagon (Glucagon 1 Mg/Ml Syringe) 1 mg IM .X1 PRN PRN Reason: Hypoglycemia Hydrocortisone (Hydrocortisone 2.5% Crm) 1 applic TOPICAL TID PRN PRN; Protocol PRN Reason: Discomfort Ibuprofen (Ibuprofen 600 Mg Tablet) 600 mg PO Q6H [facility] Last Admin: 10/04/20 03:11 Dose: 600 mg Documented by: Insulin Aspart (Insulin Basal Pump) 1 unit SC Q24 [facility] Last Admin: 10/03/20 10:13 Dose: 1 unit Documented by: Methylergonovine Maleate (Methylergonovine 0.2 Mg/Ml Ampul) 0.2 mg IM X1 PRN PRN Reason: Uterine Atony Naloxone HCl (Naloxone 0.4 Mg/Ml Syringe) 0.02 mg IV Q1M PRN PRN Reason: RR <10 and pt unresponsive Ondansetron HCl (Ondansetron 4 Mg/2 Ml Vial) 4 mg IV Q4H PRN PRN PRN Reason: Nausea Last Admin: 10/01/20 11:14 Dose: 4 mg Documented by: Oxycodone HCl (Oxycodone 5 Mg Tablet) 5 - 10 mg PO Q4H PRN PRN PRN Reason: Pain Score 4-10 Prochlorperazine Edisylate (Prochlorperazine 10 Mg/2 Ml Vial) 10 mg IV Q6H PRN PRN PRN Reason: NAUSEA Last Admin: 10/01/20 15:52 Dose: 10 mg Documented by: Senna/Docusate Sodium (Senna/Docusate Sodium 1 Tablet) 1 - 2 tablet PO DAILY [facility] Last Admin: 10/03/20 09:05 Dose: 1 tablet Documented by: Simethicone (Simethicone 80 Mg Tablet) 80 mg PO PCHS PRN PRN Reason: Indigestion/stomach pain Last Admin: 10/03/20 21:26 Dose: 80 mg Documented by: Sodium Chloride (0.9% Saline Lock 10 Ml Syringe) 5 - 15 ml IV UD PRN PRN Reason: SALINE FLUSH Last Admin: 10/02/20 03:34 Dose: 10 ml Documented by: Medical Necessity - Tobacco Use Smoking Status: Never smoker Assessment/Plan All Active Problems (Last Reviewed 09/05/20 @ 09:[address] Red Campos MD) 33 weeks gestation of (Acute) Headache in (Acute) Nausea/vomiting in (Acute) Type 1 diabetes mellitus affecting in second trimester, antepartum (Acute) Diabetic ketoacidosis associated with type 1 diabetes mellitus (Acute) Sinus tachycardia by electrocardiogram (Acute) Chest pain (Acute) POD #3 Repeat C/S with bilateral tubal ligation Routine care Pain control Pumping and putting to breast in SCN Blood sugars within normal range Discharge home (Hotel) status
--- NOTE | 2020-10-04 08:39 | DCINST_ITS ---
Discharge Activity: May Not Drive - 2 weeks May resume sexual activity in: 6-8 weeks Additional Instructions: If you experience any of the following, contact your healthcare provider. * Bleeding that soaks a pad every hour for 2 hours * Fever 100.4 or higher * Unrelieved incision or abdominal pain * Swelling, redness, discharge or bleeding from your incision or episiotomy site * Your incision begins to separate * Problems urinating (including inability to urinate or burning while urinat ing). * Visual changes * Severe headache * Flu-like symptoms * Pain or redness in one of both of your breasts * Pain, warmth, tenderness or swelling in your legs, especially the calf area * Frequent nausea and vomiting * Symptoms of depression or anxiety If you experience any of the following, call 911 or go to the nearest Emergency Room. * Chest pain * Problems breathing * Seizure activity * Partial or complete paralysis of a body part, slurred speech, weakness or drooping of the face, or a sudden inability to walk or hold your balance Allergies/Adverse Reactions: Allergies shellfish derived Allergy (Verified 10/01/20 05:19) Vomiting Medications to take at Discharge prenat.vits,delfin,nat-[id number] 1 tab PO DAILY 06/03/20 Flash Glucose Sensor [Freestyle Barney 14 Day Sensor] See Rx Instructions .ROUTE .MEDSUPPLY 10/01/20 Insulin Pump Cartridge [Omnipod Dash 5 Pack Pod] See Rx Instructions .ROUTE .MEDSUPPLY 10/01/20 Omeprazole [Prilosec] 20 mg PO DAILY 10/01/20 Ferrous Sulfate 325 mg PO BID 30 Days #60 tablet 10/03/20 Senna/Docusate Sodium [Senokot-S] 1 - 2 tablet PO DAILY 30 Days #30 tablet 10/03/20 Oxycodone [Oxyir] 5 - 10 mg PO Q4H PRN PRN 7 Days #20 tablet 10/04/20 The following prescriptions were given: Ferrous Sulfate 325 mg PO BID 30 Days #60 tablet Transmission Status: Received by [email or web address] Oxycodone [Oxyir] 5 - 10 mg PO Q4H PRN PRN 7 Days #20 tablet PRN Reason: Pain Score 4-10 Transmission Status: Sent to [email or web address] Senna/Docusate Sodium [Senokot-S] 1 - 2 tablet PO DAILY 30 Days #30 tablet Transmission Status: Received by [email or web address] Follow-Up: Call to make an appointment with your doctor for an incision check in 1-2 weeks. You will also need a 6 week post- follow up appointment. Test results from this visit will be discussed in further detail at your follow- up appointment, if applicable. Primary Care Physician: Care Physician,No Primary [Primary Care Provider] - Proposed Discharge Date: 10/04/20
--- NOTE | 2020-10-04 08:39 | PCM.DCCSEC ---
Discharge Activity: May Not Drive - 2 weeks May resume sexual activity in: 6-8 weeks Additional Instructions: If you experience any of the following, contact your healthcare provider. Bleeding that soaks a pad every hour for 2 hours Fever 100.4 or higher Unrelieved incision or abdominal pain Swelling, redness, discharge or bleeding from your incision or episiotomy site Your incision begins to separate Problems urinating (including inability to urinate or burning while urinating). Visual changes Severe headache Flu-like symptoms Pain or redness in one of both of your breasts Pain, warmth, tenderness or swelling in your legs, especially the calf area Frequent nausea and vomiting Symptoms of depression or anxiety If you experience any of the following, call 911 or go to the nearest Emergency Room. Chest pain Problems breathing Seizure activity Partial or complete paralysis of a body part, slurred speech, weakness or drooping of the face, or a sudden inability to walk or hold your balance Allergies/Adverse Reactions: Allergies shellfish derived Allergy (Verified 10/01/20 05:19) Vomiting Medications to take at Discharge prenat.vits,delfin,med-qlgy-rcdks 1 tab PO DAILY 06/03/20 Flash Glucose Sensor [Freestyle Barney 14 Day Sensor] See Rx Instructions .ROUTE .MEDSUPPLY 10/01/20 Insulin Pump Cartridge [Omnipod Dash 5 Pack Pod] See Rx Instructions .ROUTE .MEDSUPPLY 10/01/20 Omeprazole [Prilosec] 20 mg PO DAILY 10/01/20 Ferrous Sulfate 325 mg PO BID 30 Days #60 tablet 10/03/20 Senna/Docusate Sodium [Senokot-S] 1 - 2 tablet PO DAILY 30 Days #30 tablet 10/03/20 Oxycodone [Oxyir] 5 - 10 mg PO Q4H PRN PRN 7 Days #20 tablet 10/04/20 The following prescriptions were given: Ferrous Sulfate 325 mg PO BID 30 Days #60 tablet Transmission Status: Received by [facility] Oxycodone [Oxyir] 5 - 10 mg PO Q4H PRN PRN 7 Days #20 tablet PRN Reason: Pain Score 4-10 Transmission Status: Sent to [facility] Senna/Docusate Sodium [Senokot-S] 1 - 2 tablet PO DAILY 30 Days #30 tablet Transmission Status: Received by [facility] Follow-Up: Call to make an appointment with your doctor for an incision check in 1-2 weeks. You will also need a 6 week post- follow up appointment. Test results from this visit will be discussed in further detail at your follow-up appointment, if applicable. Primary Care Physician: Care Physician,No Primary [Primary Care Provider] - Proposed Discharge Date: 10/04/20
--- NOTE | 2020-10-04 08:40 | DS.PCM_ITS ---
Discharge Date and Diagnosis Date of Admission: 10/01/20 Date of Discharge: 10/04/20 - Secondary Discharge Diagnosis Chronic Problems: Chronic Problems (Last Reviewed 09/05/20 @ 09:[address] Red Campos MD) Diabetes (Chronic) Insulin pump titration (Chronic) Presence of insulin pump (Chronic) History of type 1 diabetes mellitus (Chronic) uncontrolled diabetes type 1 without complication (Chronic) Hospital Course and Treatment Operations: None Summary of Care Provided: The patient is a 35 year old F for repeat section with bilateral tubal ligation. Hospital course uncomplicated. - Physical Exam Vitals/I&O's: Vital Signs Temp Pulse Resp BP Pulse Ox 97.9 F 74 16 130/68 H 99 10/03/20 21:18 10/04/20 01:49 10/04/20 01:49 10/04/20 01:49 10/04/20 01:49 Oxygen Delivery Method Room Air Weight: 235 lb 9.6 oz Body Mass Index (BMI) 36.8 Finger Stick Blood Glucose 198 Intake and Output for Last 24 Hours 10/02/20 10/03/20 10/04/20 23:59 23:59 23:59 Intake Total 785 / 785 Output Total 1365 / 1365 350 / 350 Balance -580 / -580 -350 / -350 Current Medications Acetaminophen (Acetaminophen 500 Mg Tablet) 1,000 mg PO Q6H [facility] Last Admin: 10/04/20 03:10 Dose: 1,000 mg Documented by: Bisacodyl (Bisacodyl 10 Mg Suppository) 10 mg RC UD PRN PRN Reason: If no BM Calcium Carbonate (Calcium Carbonate 500 Mg Tablet) 500 mg PO Q6H PRN PRN PRN Reason: HEARTBURN Last Admin: 10/03/20 21:27 Dose: 500 mg Documented by: Dextrose (Dextrose 50%-Water 25 Gm/50 Ml Disp.Syrin) 0 gm IV X1 PRN; Protocol PRN Reason: Hypoglycemia Enoxaparin Sodium (Enoxaparin 40 Mg/0.4 Ml Syringe) 40 mg SC DAILY@2200 [facility] Last Admin: 10/03/20 21:27 Dose: 40 mg Documented by: Famotidine (Famotidine 20 Mg Tablet) 20 mg PO DAILY [facility] Last Admin: 10/03/20 09:15 Dose: 20 mg Documented by: Glucagon (Glucagon 1 Mg/Ml Syringe) 1 mg IM .X1 PRN PRN Reason: Hypoglycemia Hydrocortisone (Hydrocortisone 2.5% Crm) 1 applic TOPICAL TID PRN PRN; Protocol PRN Reason: Discomfort Ibuprofen (Ibuprofen 600 Mg Tablet) 600 mg PO Q6H [facility] Last Admin: 10/04/20 03:11 Dose: 600 mg Documented by: Insulin Aspart (Insulin Basal Pump) 1 unit SC Q24 [facility] Last Admin: 10/03/20 10:13 Dose: 1 unit Documented by: Methylergonovine Maleate (Methylergonovine 0.2 Mg/Ml Ampul) 0.2 mg IM X1 PRN PRN Reason: Uterine Atony Naloxone HCl (Naloxone 0.4 Mg/Ml Syringe) 0.02 mg IV Q1M PRN PRN Reason: RR <10 and pt unresponsive Ondansetron HCl (Ondansetron 4 Mg/2 Ml Vial) 4 mg IV Q4H PRN PRN PRN Reason: Nausea Last Admin: 10/01/20 11:14 Dose: 4 mg Documented by: Oxycodone HCl (Oxycodone 5 Mg Tablet) 5 - 10 mg PO Q4H PRN PRN PRN Reason: Pain Score 4-10 Prochlorperazine Edisylate (Prochlorperazine 10 Mg/2 Ml Vial) 10 mg IV Q6H PRN PRN PRN Reason: NAUSEA Last Admin: 10/01/20 15:52 Dose: 10 mg Documented by: Senna/Docusate Sodium (Senna/Docusate Sodium 1 Tablet) 1 - 2 tablet PO DAILY [facility] Last Admin: 10/03/20 09:05 Dose: 1 tablet Documented by: Simethicone (Simethicone 80 Mg Tablet) 80 mg PO HS PRN PRN Reason: Indigestion/stomach pain Last Admin: 10/03/20 21:26 Dose: 80 mg Documented by: Sodium Chloride (0.9% Saline Lock 10 Ml Syringe) 5 - 15 ml IV UD PRN PRN Reason: SALINE FLUSH Last Admin: 10/02/20 03:34 Dose: 10 ml Documented by: Discharge Activity: May Not Drive - 2 weeks May resume sexual activity in: 6-8 weeks Home Medications: Medications to take at Discharge prenat.vits,delfin,gom-eoje-kljyv 1 tab PO DAILY 11/16/20 Flash Glucose Sensor [Freestyle Barney 14 Day Sensor] See Rx Instructions .ROUTE .MEDSUPPLY 10/01/20 Insulin Pump Cartridge [Omnipod Dash 5 Pack Pod] See Rx Instructions .ROUTE .MEDSUPPLY 10/01/20 Omeprazole [Prilosec] 20 mg PO DAILY 10/01/20 Ferrous Sulfate 325 mg PO BID 30 Days #60 tablet 10/03/20 Senna/Docusate Sodium [Senokot-S] 1 - 2 tablet PO DAILY 30 Days #30 tablet 10/03/20 Oxycodone [Oxyir] 5 - 10 mg PO Q4H PRN PRN 7 Days #20 tablet 10/04/20 Following Prescriptions Were Given to Patient: Ferrous Sulfate 325 mg PO BID 30 Days #60 tablet Transmission Status: Received by [facility] Oxycodone [Oxyir] 5 - 10 mg PO Q4H PRN PRN 7 Days #20 tablet PRN Reason: Pain Score 4-10 Transmission Status: Sent to [facility] Senna/Docusate Sodium [Senokot-S] 1 - 2 tablet PO DAILY 30 Days #30 tablet Transmission Status: Received by [facility] Primary Care Physician: Care Physician,No Primary [Primary Care Provider] - Medical Necessity - Tobacco Use Smoking Status: Never smoker Meaningful Use Info Meaningful Use Diagnoses (Choose all that apply): None applicable
[2020-10-04] MEDS: Senna/Docusate Sodium 1 Tablet PO ×2 (09:37)
[2020-10-04] MEDS: Insulin Basal Pump 1 UNIT SC (09:38)
[2020-10-04 09:53] VITALS: BP 133/79; PULSE 81; RESP 14; TEMP 36.6; O2SAT 99
[2020-10-04] MEDS: Famotidine 20 MG Tablet PO (10:10)
[2020-10-04 12:53] VITALS: BP 131/75; PULSE 80; RESP 16; TEMP 36.6
== END 2020-10-04 16:00 | disposition home or self-care (01) | DRG 539 ==
PROVIDERS: Admitting Provider Obstetrics & Gynecology; Referring Provider Obstetrics & Gynecology; Visit Provider Obstetrics & Gynecology
PROC: 10D00Z1 Extraction of Products of Conception, Low, Open Approach (ICD-10-PCS; CPT 59514; principal; 2020-10-01 07:15)
DX: O34.212 Maternal care for vertical scar from previous cesarean delivery (principal); N85.8 Other specified noninflammatory disorders of uterus; Z3A.36 36 weeks gestation of pregnancy; Z37.0 Single live birth; O24.02 Pre-existing type 1 diabetes mellitus, in childbirth; E10.9 Type 1 diabetes mellitus without complications; Z79.4 Long term (current) use of insulin; Z96.41 Presence of insulin pump (external) (internal); Z30.2 Encounter for sterilization; O36.63X0 Maternal care for excessive fetal growth, third trimester, not applicable or unspecified
CPT/HCPCS: 85025; 85027; 86850; 86900; 86901; 88302; 88305; 88307; 99218; 99251; J7120; A4216; G0378; G0463; J2405

== ENCOUNTER → 2021-02-07 15:02 | Outpatient (CLI) | payer MEDICAID, SELFPAY ==
[2021-02-07 14:43] VITALS: BMI 36.8
[2021-02-07 15:46] LABS: Absolute Lymphocyte Count 3.08 X10^3/uL (0.83-4.51); Absolute Neutrophil Count 3.2 X10^3/uL (2.0-7.7); Basophil# 0.02 X10^3/uL; Basophil% 0.3 % (0-1); Eosinophil# 0.22 X10^3/uL; Eosinophils% 3.1 % (0-5); Hematocrit 38.5 % (37-47); Hemoglobin 12.6 g/dL (12.0-15.0); Lymphocyte # 3.08 X10^3/ul (0.83-4.51); Lymphocyte % 44.1 % (19-41); Mean Corp Hgb Conc 32.7 g/dL (32-36); Mean Corpuscular Hgb 28.1 pg (27.0-32.0); Mean Corpuscular Volume 85.9 fL (81-99); Mean Platelet Vol. 9.7 fl (6.2-12.0); Monocyte# 0.49 X10^3/uL; NRBC Flagged by Analyzer 0 % (0-5); Neutrophil # 3.17 X10^3/uL (2.7-7.7); Neutrophil % 45.4 % (47-70); Platelet Count 346 K/mm3 (150-450); RBC Distribution Width CV 14.2 % (11.6-14.6); Red Blood Count 4.48 M/mm3 (4.2-5.4)
[2021-02-07 16:09] LABS: Microalbumin:Creatinine Ratio 4.9 mg/g CRE (<30 mg/g CRE)
[2021-02-07 16:14] LABS: Vitamin D,25 Hydroxy 23.4 ng/mL
[2021-02-07 16:21] LABS: ALB/GLOB Ratio 0.8 RATIO (0.9-2.4); AST(SGOT) 14 U/L (15-37); Alanine Aminotransfer ALT/SGPT 20 U/L (13-56); Albumin, Serum 3.5 g/dL (3.2-5.0); Alkaline Phosphatase 90 U/L (45-117); Anion Gap 7 (5-15); BUN 6 mg/dL (7-18); BUN/Creat Ratio 7.8 RATIO (10-20); Calcium,Total 8.8 mg/dL (8.5-10.1); Chloride 106 mmol/L (98-107); Creatinine, Serum 0.77 mg/dL (0.55-1.02); EST Glomerular Filtration Rate 91 mL/min (>60); Est Glom Filt Rate - Afr Amer 111 mL/min (>60); Ferritin 6 ng/mL (8-252); Globulin 4.2 g/dL (2.2-4.2); Glucose 117 mg/dL (74-106); Potassium 3.9 mmol/L (3.5-5.1); Protein, Total 7.7 g/dL (6.4-8.2); Sodium Level 142 mmol/L (136-145); Thyroid Stim Hormone (TSH) 1.13 uIU/mL (0.358-3.74)
== END ==
PROVIDERS: Referring Provider Internal Medicine Endocrinology, Diabetes & Metabolism; Visit Provider Internal Medicine Endocrinology, Diabetes & Metabolism
DX: D50.9 Iron deficiency anemia, unspecified (principal); E10.9 Type 1 diabetes mellitus without complications; E55.9 Vitamin D deficiency, unspecified
CPT/HCPCS: 36415; 80053; 82043; 82306; 82570; 82728; 84443; 85025

== ENCOUNTER → 2022-03-05 | Outpatient (CLI) | payer OTHER, MEDICAID, SELFPAY ==
[2022-03-05 09:44] LABS: Microalbumin,Random Urine 15.2 mg/L (NO RANGE EST.); Microalbumin:Creatinine Ratio 6.8 mg/g CRE (<30 mg/g CRE)
[2022-03-05 09:46] LABS: ALB/GLOB Ratio 0.9 RATIO (0.9-2.4); AST(SGOT) 8 U/L (15-37); Alanine Aminotransfer ALT/SGPT 20 U/L (13-56); Albumin, Serum 3.6 g/dL (3.2-5.0); Alkaline Phosphatase 71 U/L (45-117); Anion Gap 7 (5-15); BUN 10 mg/dL (7-18); BUN/Creat Ratio 12.3 RATIO (10-20); Calcium,Total 8.8 mg/dL (8.5-10.1); Chloride 106 mmol/L (98-107); Cholesterol 142 mg/dL (200); Creatinine, Serum 0.81 mg/dL (0.55-1.02); EST Glomerular Filtration Rate 85 mL/min (>60); Est Glom Filt Rate - Afr Amer 103 mL/min (>60); Globulin 4.2 g/dL (2.2-4.2); Glucose 146 mg/dL (74-106); High Density Lipoprotein 62 mg/dL; Potassium 3.5 mmol/L (3.5-5.1); Protein, Total 7.8 g/dL (6.4-8.2); Sodium Level 140 mmol/L (136-145); Thyroid Stim Hormone (TSH) 3.77 uIU/mL (0.358-3.74); Triglycerides 48 mg/dL; Very Low Density Lipoprotein 10 mg/dL (5-40)
== END | disposition home or self-care (01) ==
PROVIDERS: Visit Provider Internal Medicine Endocrinology, Diabetes & Metabolism
DX: E11.9 Type 2 diabetes mellitus without complications (principal)
CPT/HCPCS: 36415; 80053; 80061; 82043; 82570; 84443

== ENCOUNTER 2022-08-03 19:16 | Emergency (ER) | payer OTHER, MEDICAID, SELFPAY ==
[2022-08-03 19:17] VITALS: BP 132/83; PULSE 104; RESP 16; TEMP 36.4; O2SAT 100; BMI 29.0
--- NOTE | 2022-08-03 19:33 | CT_ITS ---
INDICATION: Dental infection with neck swelling and difficulty EXAMINATION: CT NECK WITH CONTRAST - CT Soft Tissue Neck W/ Contrast Injection TECHNIQUE: Helically acquired images were obtained of the neck following IV contrast. A radiation dose optimization technique was used for this scan. IV Contrast dosage and agent: 75 cc Isovue-370 COMPARISON: None. FINDINGS: Left first mandibular molar caries with periapical lucencies. Right second and third mandibular molar periapical lucencies. No drainable fluid collection NASOPHARYNX: Unremarkable. SUPRAHYOID NECK: Unremarkable oropharynx, oral cavity, parapharyngeal space, and retropharyngeal space. INFRAHYOID NECK: Unremarkable larynx, hypopharynx, and supraglottis. THYROID: No focal lesions. SALIVARY GLANDS: Unremarkable. LYMPH NODES: There are a few prominent right and left cervical level 1 lymph nodes, probably reactive. VASCULAR STRUCTURES: Unremarkable. VISUALIZED PORTIONS OF THE ORBITS, PARANASAL SINUSES, MASTOID AIR CELLS AND SKULL BASE: Unremarkable. BONES: Unremarkable. THORACIC INLET: Clear lung apices. CT/Soft Tissue Neck WITH Contrast IMPRESSION: Left first mandibular molar periapical abscess. Probable periapical abscesses of the right second and third mandibular molars. No drainable fluid collection. Electronically Signed: Owen Bryant MD at 20:45 EST Reading Location ID and State: [facility] / [place] Tel , Service support ,
--- NOTE | 2022-08-03 19:43 | EDS_ITS ---
HPI History of Present Illness Chief Complaint: Dental Detail of Chief Complaint: Dental pain right lower molar Informant: patient Onset/Context/Timing Onset: Days (Was seen by dentist last Wednesday. She was prescribed Augmentin. She was seen again today because of swelling.) Context: Sudden Onset Timing: Continuous Quality: Pain Location: Right lower molar Current Severity: Mild Maximum Severity: Severe Worsened by: Chewing Relieved by: NSAIDs and Topicals Associated Symptoms Assocated Symptom - Dental: other; Negative for fever, jaw swelling, face swelling or cold sensitivity Narrative Narrative: Patient is a 36-year-old woman with history of diabetes, type I, sinus tachycardia and iron deficient anemia. She denies a traumatic fever. She denies heart murmur, SBE or being immune suppressed. There is no history of mitral valve prolapse. She is presently on Augmentin. She reports change in voice, trouble swallowing and reports drooling. She denies redness to her face or neck. There is significant swelling in the submandibular region right side. Patient reports difficulty opening closing her mouth. She denies allergy to antibiotics. She did see her dentist this morning. She has an appointment for Wednesday. She was told if it gets worse to come to the emergency department Prior similar symptoms: Yes Recent Illness/Hospitalization: Yes [facility] Medical History Hypothyroidism Iron deficiency anemia Type 1 diabetes Uncontrolled type 1 diabetes mellitus Home Medications flash glucose sensor (FreeStyle Barney 14 Day Sensor kit) #2 ea 10/06/21 [Rx Last Taken Unknown] blood-glucose meter,continuous (Dexcom G6 Solid Waste Management Engineer) #1 ea 02/09/22 [Rx Last Taken Unknown] blood-glucose sensor (Dexcom G6 Sensor device) #9 ea 03/05/22 [Rx Last Taken Unknown] blood-glucose meter,continuous (Dexcom G6 Solid Waste Management Engineer) #1 ea 03/06/22 [Rx Last Taken Unknown] insulin lispro 100 unit/mL subcutaneous solution (Humalog U-100 Insulin) See Rx Instructions subcut QDAY e10.9 #40 mL 03/09/22 [Rx Last Taken Unknown] blood-glucose transmitter (Dexcom G6 Transmitter device) #1 ea 07/05/22 [Rx Last Taken Unknown] Omnipod Dash Pods (Gen 4) (insulin pump cart,cont inf,BT) #10 ea 07/31/22 [Rx Last Taken Unknown] ondansetron 4 mg disintegrating tablet 4 mg PO Q8H PRN PRN Nausea #10 tabs 08/03/22 [Rx Last Taken Unknown] oxycodone-acetaminophen 5 mg-325 mg tablet 1 tab PO Q6H PRN PRN pain 5 days #20 TABLETS 08/03/22 [Rx Last Taken Unknown] Allergy/AdvReac Type Severity Reaction Status Date / Time shellfish derived Allergy Vomiting Verified 08/03/22 19:19 Family History Father Hypertension Heart disease Myocardial infarction Surgical History H/O: Social History (Updated 08/03/22 @ 19:[address] Mike Archibald MD) household members: significant other Smoking Status: Never smoker second hand exposure: No alcohol intake: never substance use type: does not use ROS ROS ED Constitutional Constitutional ED: Denies chills, fever(s), subjective, sweats or weight loss Eyes Eyes: Denies blurry vision or change in vision ENT ENT ED: Reports sore throat and other Details: Documented HPI narrative ; Denies ear pain or rhinorrhea Cardiovascular Cardiovascular: Denies chest pain, palpitations or racing heartbeat Respiratory/Chest Respiratory/Chest: Denies cough or dyspnea Gastrointestinal Gastrointestinal: Denies nausea or vomiting Musculoskeletal Musculoskeletal: Reports neck pain; Denies arthralgias, back pain or myalgias Integumentary Reports abscess; Denies rash Neurologic Neurologic: Denies headache(s) Hematologic/Lymphatic Hematologic/Lymphatic: Denies easy bleeding or easy bruising EXAM Physical Exam Const Vital Signs: 08/03/22 19:17 08/03/22 21:04 Temperature 97.6 F L Temperature Source Temporal Pulse Rate 104 H 75 Respiratory Rate 16 16 Blood Pressure 132/83 H 121/78 H Blood Pressure Mean 99 92 Pulse Ox 100 100 Oxygen Delivery Method Room Air Room Air Positive well nourished and well developed Constitutional Narrative: Patient appears ill. She appears uncomfortable. She appears pale. General Appearance ED: well developed and NAD HEENT HEENT Narrative: Head is atraumatic normocephalic. Ears normal. Nares patent. Patient has dental carry involving the pulp right lower molar, tooth #31. There is swelling of the gingiva. There is no fluctuance. There is no firmness of the floor of the mouth. She does have significant submandibular lymphadenopathy and fullness. Question of slight fluctuance. Mouth ED: Yes oral and palatal mucosa normal, Yes lips normal, Yes tongue normal and No mouth trauma Mouth: oral and palatal mucosa normal, lips normal, tongue normal and No mouth trauma Teeth and Gingiva: abnormal tooth and associated gingiva, caries, gingiva abnormal, poor dentition and teeth discoloration Throat: posterior oropharynx normal Eyes PERRL and EOMs intact bilaterally General Eye ED: Negative for pale conjunctiva or scleral icterus Neck No no lymphadenopathy, supple and no JVD Neck Narrative: Trachea is midline. There is no inspiratory expiratory stridor. General: anterior neck swelling, tenderness and submandibular swelling Resp normal respiratory effort, no retractions and clear to auscultation bilaterally Cardio regular rate, regular rhythm, S1 normal heart sound, S2 normal heart sound and no murmurs Extremity normal to inspection and no joint enlargement Neuro oriented x3, CN's II-XII intact bilaterally, moves all extremities, no focal motor deficits and no sensory deficits noted Psych mental status grossly normal Skin no rashes or lesions noted and no wounds MDM MDM MDM Narrative Medical decision making narrative: Patient has a dental infection. Suspect that she has significant lymphadenopathy. Because patient is reporting drooling, change in voice and difficulty swallowing liquids will obtain CT of the head to evaluate airway and assure there is no obvious compromise. She received a dose of IV antibiotics. She was medicated with IV Toradol and morphine for her pain. CBC was obtained assess white count with differential. Basic metabolic panel to assess glucose since she is diabetic and renal function. (Was not obtained because patient is status post bilateral salpingectomy. Her last normal menstrual period was last week July 27. Clinically patient does not have evidence of Ludewig's angina. Plan is discharge patient home with pain medicine. Needs to see dentist and have her abscesses drained. She was told that she has an abscess on both sides. Presently there is nothing amendable for an I&D. She will need endodontal work performed. Lab Data Attestation: I reviewed the patient's lab results. Lab results narrative: White count is elevated with a slight shift. There is no bandemia. There is no anemia. Electrolyte panel is unremarkable. Glucose is slight elevated 164. Labs: Laboratory Results - last 24 hr 08/03/22 08/03/22 19:43 19:43 WBC 12.8 H RBC 4.04 L Hgb 12.1 Hct 36.6 L MCV 90.6 MCH 30.0 MCHC 33.1 RDW Std Deviation 45.0 H RDW Coeff of Yuly 13.4 Plt Count 369 MPV 9.5 Immature Gran % (Auto) 0.500 Neut % (Auto) 78.5 H Lymph % (Auto) 13.9 L [place] % (Auto) 6.3 Eos % (Auto) 0.5 Baso % (Auto) 0.3 Absolute Neuts (auto) 10.0 H Absolute Lymphs (auto) 1.78 Nucleated RBC % 0 Sodium 139 Potassium 3.6 Chloride 106 Carbon Dioxide 26.0 Anion Gap 7 BUN 8 Creatinine 0.73 Estim Creat Clear Calc 100.69 Est GFR (MDRD) Af Amer 117 Est GFR (MDRD) Non-Af 97 BUN/Creatinine Ratio 11.0 Glucose 164 H Calcium 8.8 Radiography Diagnostic Testing: Clinical Impression(s) from Imaging Studies Soft Tissue Neck CT 08/03/22 19:33 IMPRESSION: Left first mandibular molar periapical abscess. Probable periapical abscesses of the right second and third mandibular molars. No drainable fluid collection. Electronically Signed: Owen Bryant MD at 20:45 EST Reading Location ID and State: [facility] / [place] Tel , Service support , CT of the neck with IV contrast was obtained. There appears to be a peridental abscess on the right and there is abnormality noted on the left.. There is no evidence of cellulitis. There is lymphadenopathy. Awaiting formal read by radiologist. Rhythm Strip Rate: 90 Ectopy: None Discharge Plan Triage Chief Complaint: Dental ED Provider: Mike Archibald Dx/Rx/DC Orders Clinical Impression: Acute periapical abscess, Presence of insulin pump, Acute periodontal abscess, Dental caries extending into pulp, Hyperglycemia due to type 1 diabetes mellitus Instructions: ED Dental Abscess Prescriptions: New oxycodone-acetaminophen [oxycodone-acetaminophen] 5-325 mg tablet 1 tab PO Q6H PRN PRN (Reason: pain) 5 Days Qty: 20 0RF ondansetron [ondansetron] 4 mg tablet,disintegrating 4 mg PO Q8H PRN PRN (Reason: Nausea) Qty: 10 0RF No Action (DME) FreeStyle Barney 14 Day Sensor Kit See Rx Instructions .ROUTE .MEDSUPPLY Qty: 2 8RF Rx Instructions: As directed (DME) Dexcom G6 Sensor Device See Rx Instructions .Route Qty: 9 1RF Rx Instructions: 1 sensor q 10 days (DME) Dexcom G6 Solid Waste Management Engineer Misc See Rx Instructions .Route Qty: 1 0RF Rx Instructions: As directed (DME) Dexcom G6 Solid Waste Management Engineer Misc See Rx Instructions .Route Qty: 1 0RF Rx Instructions: As directed Humalog U-100 Insulin 100 unit/mL solution See Rx Instructions SC QDAY MDD 110 Qty: 40 1RF Dose Instruction: uses up to 75 Units qd via pump SC QDAY; Rx Instructions: uses up to 110 Units qd via pump SC QDAY; (DME) Dexcom G6 Transmitter Device See Rx Instructions .Route Qty: 1 3RF Rx Instructions: 1 transmitter q 90 days (DME) Omnipod Dash Pods (Gen 4) Cartridge See Rx Instructions .ROUTE .MEDSUPPLY Qty: 10 2RF Rx Instructions: change every 72 hours Primary Care Provider: Care Physician,No Primary Referrals: Care Physician,No Primary [Primary Care Provider] - Dentist,Your [STAFF PHYSICIAN] - Keep Rajiv appointment Disposition Disposition: Home, Self Care
[2022-08-03] MEDS: Ondansetron 4 MG/2 ML Vial IV (19:50)
[2022-08-03] MEDS: 0.9% Normal Saline 1,000 ML 150 ML IV (19:50)
[2022-08-03] MEDS: Morphine 4 MG/ML Syringe IV (19:51)
[2022-08-03] MEDS: Ketorolac 15 MG/ML Vial IV (19:51)
[2022-08-03 19:58] LABS: Absolute Lymphocyte Count 1.78 X10^3/uL (0.83-4.51); Basophil# 0.04 X10^3/uL; Basophil% 0.3 % (0-1); Eosinophil# 0.07 X10^3/uL; Eosinophils% 0.5 % (0-5); Hematocrit 36.6 % (37-47); Hemoglobin 12.1 g/dL (12.0-15.0); Lymphocyte # 1.78 X10^3/ul (0.83-4.51); Lymphocyte % 13.9 % (19-41); Mean Corp Hgb Conc 33.1 g/dL (32-36); Mean Corpuscular Volume 90.6 fL (81-99); Mean Platelet Vol. 9.5 fl (6.2-12.0); Monocyte# 0.81 X10^3/uL; Monocyte% 6.3 % (0-10); NRBC Flagged by Analyzer 0 % (0-5); Neutrophil # 10.01 X10^3/uL (2.7-7.7); Neutrophil % 78.5 % (47-70); Platelet Count 369 K/mm3 (150-450); RBC Distribution Width CV 13.4 % (11.6-14.6); Red Blood Count 4.04 M/mm3 (4.2-5.4); White Blood Count 12.8 K/mm3 (4.4-11.0)
[2022-08-03 20:12] LABS: Anion Gap 7 (5-15); BUN 8 mg/dL (7-18); Calcium,Total 8.8 mg/dL (8.5-10.1); Chloride 106 mmol/L (98-107); Creatinine, Serum 0.73 mg/dL (0.55-1.02); EST Glomerular Filtration Rate 97 mL/min (>60); Est Glom Filt Rate - Afr Amer 117 mL/min (>60); Estimated Creatinine Clearance 100.69 ml/min; Glucose 164 mg/dL (74-106); Potassium 3.6 mmol/L (3.5-5.1); Sodium Level 139 mmol/L (136-145)
[2022-08-03 21:04] VITALS: BP 121/78; PULSE 75; RESP 16; O2SAT 100
[2022-08-03] MEDS: Metoclopramide 10 MG/2 ML Vial 5 MG IV (21:12)
[2022-08-03 21:53] VITALS: BP 118/72; PULSE 74; RESP 17; O2SAT 100
== END 2022-08-03 21:54 | disposition home or self-care (01) ==
PROVIDERS: Emergency Provider Emergency Medicine; Visit Provider Emergency Medicine
DX: K05.219 Aggressive periodontitis, localized, unspecified severity (principal); E10.65 Type 1 diabetes mellitus with hyperglycemia; Z79.4 Long term (current) use of insulin; Z96.41 Presence of insulin pump (external) (internal)
CPT/HCPCS: 70491; 80048; 85025; 96365; 96375; 99285; J7030; J0295; J2405

== ENCOUNTER 2022-08-05 16:36 | Emergency (ER) | payer OTHER, MEDICAID, SELFPAY ==
[2022-08-05 16:36] VITALS: BP 137/84; PULSE 107; RESP 16; TEMP 36.8; O2SAT 98; BMI 29.2
--- NOTE | 2022-08-05 18:02 | CT_ITS ---
EXAM: CT NECK WITH INTRAVENOUS CONTRAST CLINICAL INDICATION: EDEMA, abscess TECHNIQUE: Helically acquired images were obtained of the neck with intravenous contrast. This CT exam was performed using one or more of the following dose reduction techniques: automated exposure control, adjustment of the mA and/or kV according to patient size, and/or use of iterative reconstruction technique. This report was created using [employer] report [employer] technology. CONTRAST: IV 75mL Isovue-370 RADIATION DOSE: CTDIvol = 16.03 mGy, DLP = 496.71 mGy-cm COMPARISON: 08.03.22 FINDINGS: NASOPHARYNX: Unremarkable. SUPRAHYOID NECK: Unremarkable. Oropharynx, oral cavity, parapharyngeal space and retropharyngeal space are unremarkable. INFRAHYOID NECK: Unremarkable. The larynx, hypopharynx and supraglottis are unremarkable. SUBMANDIBULAR/PAROTID GLANDS: Unremarkable. Glands are normal in size. THYROID: Unremarkable. No enlarged or calcified nodules. DENTAL: There is a periodontal lucency of the left mandibular molars. These are stable. This is concerning for a periodontal abscess. Along the left mandible the molars demonstrate dental carries. There has been removal of the right mandible molars since the prior study. There is no drainable abscess. BONES/JOINTS: No acute fracture. SOFT TISSUES: Unremarkable. VASCULATURE: No acute findings. LYMPH NODES: Stable submental lymph nodes. LUNG APICES: Unremarkable as visualized. CT/Soft Tissue Neck WITH Contrast IMPRESSION: 1. There is a periodontal lucency of the left mandibular molars. These are stable. This is concerning for a periodontal abscess. Along the left mandible the molars demonstrate dental carries. There has been removal of the right mandible molars since the prior study. There is no drainable abscess. 2. Stable submental lymph nodes. Electronically Signed: Raymond Izaguirre MD at 19:38 EST ,
--- NOTE | 2022-08-05 18:03 | EDS_ITS ---
HPI History of Present Illness Chief Complaint: Dental Narrative Narrative: 36-year-old female with past medical history of type 1 diabetes, on insulin, presents with history of dental abscess. She states she started having a tooth ache on Wednesday, 6 days ago. She was started on antibiotics in the form of Augmentin on Wednesday. She states she was in the emergency department and diagnosed with a periodontal abscess. She went to the dentist on Wednesday, and had 2 teeth removed. This was done by Dr. Bolden. She had received Unasyn while in the emergency department and CT of the neck had been obtained. Since her tooth removal, she has continued her Augmentin and has had fevers. She is taking ibuprofen and Tylenol nonstop. She states that she got a call from the maxillofacial surgeon, Dr. Everett, today and was told to come to the emergency department because she is failing outpatient treatment of her abscess. She complains of swelling under her tongue and firmness. She states she has had decreased p.o. intake because it is difficult for her to swallow. [facility] Medical History Hypothyroidism Iron deficiency anemia Type 1 diabetes Uncontrolled type 1 diabetes mellitus Home Medications flash glucose sensor (FreeStyle Barney 14 Day Sensor kit) #2 ea 10/06/21 [Rx Last Taken Unknown] blood-glucose meter,continuous (Dexcom G6 Solution Sales Senior Executive) #1 ea 02/09/22 [Rx Last Taken Unknown] blood-glucose sensor (Dexcom G6 Sensor device) #9 ea 03/05/22 [Rx Last Taken Unknown] blood-glucose meter,continuous (Dexcom G6 Solution Sales Senior Executive) #1 ea 03/06/22 [Rx Last Taken Unknown] insulin lispro 100 unit/mL subcutaneous solution (Humalog U-100 Insulin) See Rx Instructions subcut QDAY e10.9 #40 mL 03/09/22 [Rx Last Taken Unknown] blood-glucose transmitter (Dexcom G6 Transmitter device) #1 ea 07/05/22 [Rx Last Taken Unknown] Omnipod Dash Pods (Gen 4) (insulin pump cart,cont inf,BT) #10 ea 07/31/22 [Rx Last Taken Unknown] ondansetron 4 mg disintegrating tablet 4 mg PO Q8H PRN PRN Nausea #10 tabs 08/03/22 [Rx Last Taken Unknown] oxycodone-acetaminophen 5 mg-325 mg tablet 1 tab PO Q6H PRN PRN pain 5 days #20 TABLETS 08/03/22 [Rx Last Taken Unknown] amoxicillin 400 mg-potassium clavulanate 57 mg/5 mL oral suspension 10 ml PO BID 10 days #200 mL 08/05/22 [Rx Last Taken Unknown] Allergy/AdvReac Type Severity Reaction Status Date / Time shellfish derived Allergy Vomiting Verified 08/05/22 16:39 Family History Father Hypertension Heart disease Myocardial infarction Surgical History H/O: Social History household members: significant other Smoking Status: Never smoker second hand exposure: No alcohol intake: never substance use type: does not use ROS ROS ED ROS Narrative Constitutional: +102.0 ?F fever, no chills. HEENT: No sore throat. Positive swelling and neck pain under her tongue. No loss of vision. No rhinorrhea. Cardiovascular: No chest pain. No palpitations. No pedal edema. Respiratory: No cough, no shortness of breath. Abdominal: No abdominal pain. No nausea. No vomiting. Genitourinary: No dysuria. No hematuria. Musculoskeletal: No myalgias. No arthralgias. Neurologic: No headaches. No dizziness. No lightheadedness. Skin: No rash. No change in color. Psychiatric: No depression. No anxiety. EXAM Physical Exam Narrative Exam Narrative: Afebrile. Vital signs noted. HEENT: Normocephalic. Atraumatic. PERRL, EOMI. Neck soft and supple. No point tenderness or step off. Positive firmness and woody edema underneath tongue palpated externally. Mild trismus. No drooling. Airway patent. Cardiovascular: Regular rate and rhythm. No murmurs, rubs, or gallops appreciated. Respiratory: No tachypnea. Lungs clear to auscultation bilaterally. Gastrointestinal: Abdomen soft, nontender, with normoactive bowel sounds. No rebound or guarding. Neurological: Awake. Alert. Nonfocal, nonlateralizing. Skin: No rash. Normal color. No pallor. Musculoskeletal: No pedal edema. Full range of motion extremities. Const Vital Signs: 08/05/22 16:36 08/05/22 20:33 Temperature 98.2 F Temperature Source Temporal Pulse Rate 107 H Respiratory Rate 16 16 Blood Pressure 137/84 H Blood Pressure Mean 101 Pulse Ox 98 Oxygen Delivery Method Room Air MDM MDM MDM Narrative Medical decision making narrative: Concern is for development of Yovany angina versus abscess. I reviewed her prior outpatient chart and she did have CT performed and was treated with her continued antibiotics for acute periapical abscess and acute periodontal abscess. As this is worsening, I will repeat her laboratory work including CBC and BMP, and I do feel that CT of the soft tissue of the neck with IV contrast is indicated to look for further abscess development. She was started on Unasyn 3 g intravenously again. I reviewed her laboratory work. Her white count is 11.7 and is coming down from previous. Hemoglobin normal at 12.1, normal platelet count of 401. She has slightly hip okay anemic at 3.2, normal BUN/low at 5 with creatinine 0.7, glucose low at 57. She will be given an oral p.o. challenge of liquid. CT imaging was reviewed. My interpretation shows that her airway is patent and I see no discrete abscess noted except for a left periodontal abscess. I reviewed the radiology report that confirms that she has stable periodontal abscess. I did have a discussion with Dr. Everett who would like her seen by his partner tomorrow. He states that she should be left on her Augmentin. I had a discussion with the patient and her . They state that she is having pain with swallowing and she requested liquid antibiotics. Observation was discussed, but she has oral antibiotics, and close follow-up with maxillofacial surgery. I do not see any benefit to her being observed, as there is no airway compromise, and she has handling her own secretions well. I wrote her for Augmentin liquid. Regarding her hypoglycemia, she drank apple juice and her blood sugar was reported to be 67. She states that she feels fine and deals with low blood sugar at home often and has been over the last few days. She would like to be discharged. IFISH can be discharged home with follow-up. Disposition is discharged home in stable condition. Lab Data Attestation: I reviewed the patient's lab results. Labs: Laboratory Results - last 24 hr 08/05/22 08/05/22 08/05/22 18:20 18:20 21:21 WBC 11.7 H RBC 4.04 L Hgb 12.1 Hct 37.1 MCV 91.8 MCH 30.0 MCHC 32.6 RDW Std Deviation 45.5 H RDW Coeff of Yuly 13.4 Plt Count 401 MPV 9.3 Immature Gran % (Auto) 0.400 Neut % (Auto) 70.6 H Lymph % (Auto) 21.0 Long % (Auto) 7.3 Eos % (Auto) 0.4 Baso % (Auto) 0.3 Absolute Neuts (auto) 8.2 H Absolute Lymphs (auto) 2.45 Nucleated RBC % 0 Sodium 140 Potassium 3.2 L Chloride 107 Carbon Dioxide 31.0 Anion Gap 2 L BUN 5 L Creatinine 0.71 Estim Creat Clear Calc 103.53 Est GFR (MDRD) Af Amer 120 Est GFR (MDRD) Non-Af 99 BUN/Creatinine Ratio 7.0 L Glucose 57 L Calcium 8.8 POC Glucose 57 L Radiography Diagnostic Testing: Clinical Impression(s) from Imaging Studies Soft Tissue Neck CT 08/05/22 18:02 IMPRESSION: 1. There is a periodontal lucency of the left mandibular molars. These are stable. This is concerning for a periodontal abscess. Along the left mandible the molars demonstrate dental carries. There has been removal of the right mandible molars since the prior study. There is no drainable abscess. 2. Stable submental lymph nodes. Electronically Signed: Raymond Izaguirre MD at 19:38 EST Reading Location ID and State: [facility] / [place] , Service support , Discharge Plan Triage Chief Complaint: Dental ED Provider: Earle Negrete Dx/Rx/DC Orders Clinical Impression: Acute periodontal abscess, Painful swallowing Instructions: ED Dental Abscess, ED Dysphagia (Adult) Prescriptions: New amoxicillin-pot clavulanate 400-57 mg/5 mL suspension for reconstitution 10 ml PO BID 10 Days Qty: 200 0RF No Action (DME) FreeStyle Barney 14 Day Sensor Kit See Rx Instructions .ROUTE .MEDSUPPLY Qty: 2 8RF Rx Instructions: As directed (DME) Dexcom G6 Sensor Device See Rx Instructions .Route Qty: 9 1RF Rx Instructions: 1 sensor q 10 days oxycodone-acetaminophen [oxycodone-acetaminophen] 5-325 mg tablet 1 tab PO Q6H PRN PRN (Reason: pain) 5 Days Qty: 20 0RF ondansetron [ondansetron] 4 mg tablet,disintegrating 4 mg PO Q8H PRN PRN (Reason: Nausea) Qty: 10 0RF (DME) Dexcom G6 Solution Sales Senior Executive Misc See Rx Instructions .Route Qty: 1 0RF Rx Instructions: As directed (DME) Dexcom G6 Solution Sales Senior Executive Misc See Rx Instructions .Route Qty: 1 0RF Rx Instructions: As directed Humalog U-100 Insulin 100 unit/mL solution See Rx Instructions SC QDAY MDD 110 Qty: 40 1RF Dose Instruction: uses up to 75 Units qd via pump SC QDAY; Rx Instructions: uses up to 110 Units qd via pump SC QDAY; (DME) Dexcom G6 Transmitter Device See Rx Instructions .Route Qty: 1 3RF Rx Instructions: 1 transmitter q 90 days (DME) Omnipod Dash Pods (Gen 4) Cartridge See Rx Instructions .ROUTE .MEDSUPPLY Qty: 10 2RF Rx Instructions: change every 72 hours Primary Care Provider: Care Physician,No Primary Referrals: Care Physician,No Primary [Primary Care Provider] - Activity Restrictions/Additional Instructions: Call Dr. Rocha's office tomorrow at [phone]. You need to be seen tomorrow continue your pain medications and antibiotics. Disposition Disposition: Home, Self Care
[2022-08-05 18:32] LABS: Absolute Lymphocyte Count 2.45 X10^3/uL (0.83-4.51); Absolute Neutrophil Count 8.2 X10^3/uL (2.0-7.7); Basophil# 0.04 X10^3/uL; Basophil% 0.3 % (0-1); Eosinophil# 0.05 X10^3/uL; Eosinophils% 0.4 % (0-5); Hematocrit 37.1 % (37-47); Hemoglobin 12.1 g/dL (12.0-15.0); Lymphocyte # 2.45 X10^3/ul (0.83-4.51); Mean Corp Hgb Conc 32.6 g/dL (32-36); Mean Corpuscular Volume 91.8 fL (81-99); Mean Platelet Vol. 9.3 fl (6.2-12.0); Monocyte# 0.85 X10^3/uL; Monocyte% 7.3 % (0-10); NRBC Flagged by Analyzer 0 % (0-5); Neutrophil # 8.21 X10^3/uL (2.7-7.7); Neutrophil % 70.6 % (47-70); Platelet Count 401 K/mm3 (150-450); RBC Distribution Width CV 13.4 % (11.6-14.6); RBC Distribution Width SD 45.5 fl (35.1-43.9); Red Blood Count 4.04 M/mm3 (4.2-5.4); White Blood Count 11.7 K/mm3 (4.4-11.0)
[2022-08-05 18:44] LABS: Anion Gap 2 (5-15); BUN 5 mg/dL (7-18); Calcium,Total 8.8 mg/dL (8.5-10.1); Chloride 107 mmol/L (98-107); Creatinine, Serum 0.71 mg/dL (0.55-1.02); EST Glomerular Filtration Rate 99 mL/min (>60); Est Glom Filt Rate - Afr Amer 120 mL/min (>60); Estimated Creatinine Clearance 103.53 ml/min; Glucose 57 mg/dL (74-106); Potassium 3.2 mmol/L (3.5-5.1); Sodium Level 140 mmol/L (136-145)
[2022-08-05] MEDS: Morphine 4 MG/ML Syringe IV (19:03)
[2022-08-05 20:33] VITALS: RESP 16
[2022-08-05 21:41] LABS: Bedside Glucose 57 mg/dL (74-106)
--- NOTE | 2022-08-05 21:59 | ED.RN ---
PT. blood sugar 61 after apple juice. Pt. is an established Type 1 Diabetic and states she feels fine-will go home and drink more juice and an ensure.
== END 2022-08-05 22:18 | disposition home or self-care (01) ==
PROVIDERS: Emergency Provider Emergency Medicine; Visit Provider Emergency Medicine
DX: K04.7 Periapical abscess without sinus (principal); E10.649 Type 1 diabetes mellitus with hypoglycemia without coma; Z79.4 Long term (current) use of insulin
CPT/HCPCS: 70491; 80048; 82962; 85025; 96365; 96375; 99283; J7050; Q9967; A4216; J0295

== ENCOUNTER 2022-08-06 13:05 | Inpatient (IN) | payer OTHER, MEDICAID, SELFPAY ==
[2022-08-06 13:07] VITALS: BP 119/82; PULSE 99; RESP 18; TEMP 36.6; O2SAT 100; BMI 28.7
--- NOTE | 2022-08-06 14:28 | EX.ED.DYSGE1 ---
HPI History of Present Illness Chief Complaint: Abscess Detail of Chief Complaint: Facial abscess Informant: patient Narrative Narrative: Patient presents the emergency department with facial abscess that she has been dealing with she states x6 days. Patient was seen in the emergency department 4 days ago and had lab work-up and a CT scan. Patient was on antibiotics. Patient was seen again last evening and had another CT scan and discharged to home. Patient was following up with oral surgeon today and was referred to the emergency department for admission as she will likely require surgical intervention as she is failed outpatient therapy. Patient complains of pain. She has had fever at home up to 103. Patient is a type I diabetic. [facility] Medical History Hypothyroidism Iron deficiency anemia Type 1 diabetes Uncontrolled type 1 diabetes mellitus Home Medications flash glucose sensor (FreeStyle Barney 14 Day Sensor kit) #2 ea 10/06/21 [Rx Last Taken Unknown] blood-glucose meter,continuous (Dexcom G6 Territory Sales Manager) #1 ea 02/09/22 [Rx Last Taken Unknown] blood-glucose sensor (Dexcom G6 Sensor device) #9 ea 03/05/22 [Rx Last Taken Unknown] blood-glucose meter,continuous (Dexcom G6 Territory Sales Manager) #1 ea 03/06/22 [Rx Last Taken Unknown] insulin lispro 100 unit/mL subcutaneous solution (Humalog U-100 Insulin) See Rx Instructions subcut QDAY e10.9 #40 mL 03/09/22 [Rx Last Taken Unknown] blood-glucose transmitter (Dexcom G6 Transmitter device) #1 ea 07/05/22 [Rx Last Taken Unknown] Omnipod Dash Pods (Gen 4) (insulin pump cart,cont inf,BT) #10 ea 07/31/22 [Rx Last Taken Unknown] ondansetron 4 mg disintegrating tablet 4 mg PO Q8H PRN PRN Nausea #10 tabs 08/03/22 [Rx Last Taken Unknown] oxycodone-acetaminophen 5 mg-325 mg tablet 1 tab PO Q6H PRN PRN pain 5 days #20 TABLETS 08/03/22 [Rx Last Taken Unknown] amoxicillin 400 mg-potassium clavulanate 57 mg/5 mL oral suspension 10 ml PO BID 10 days #200 mL 08/05/22 [Rx Last Taken Unknown] Allergy/AdvReac Type Severity Reaction Status Date / Time shellfish derived Allergy Vomiting Verified 08/06/22 13:06 Family History Father Hypertension Heart disease Myocardial infarction Surgical History H/O: Social History household members: significant other Smoking Status: Never smoker second hand exposure: No alcohol intake: never substance use type: does not use ROS ROS ED Review of Systems ROS Unobtainable: other Constitutional Constitutional ED: Reports lethargy; Denies chills, fever(s), sweats or weight loss Eyes Eyes: Denies blurry vision, change in vision or diplopia ENT ENT ED: Reports other Details: Facial pain and swelling ; Denies rhinorrhea or sore throat Cardiovascular Cardiovascular: Denies chest pain or racing heartbeat Respiratory/Chest Respiratory/Chest: Reports dyspnea on exertion; Denies cough, dyspnea or sputum Gastrointestinal Gastrointestinal: Denies abdominal pain, diarrhea, nausea or vomiting Genitourinary Genitourinary ED: Denies dysuria, hematuria or urinary frequency Musculoskeletal Musculoskeletal: Denies arthralgias, back pain, myalgias or neck pain Integumentary Denies abscess, Abrasions or rash Neurologic Neurologic: Denies headache(s) or weakness Psychiatric Psychiatric: Denies anxiety, depression or suicidal thoughts Endocrine Endocrinology: Denies polydipsia, polyphagia or polyuria Hematologic/Lymphatic Hematologic/Lymphatic: Denies easy bleeding, easy bruising or lymphadenopathy Allergic/Immunologic Allergic/Immunologic ED: Denies mouth swelling, tongue swelling or urticaria EXAM Physical Exam Const Vital Signs: 08/06/22 13:07 Temperature 97.8 F Temperature Source Temporal Pulse Rate 99 Respiratory Rate 18 Blood Pressure 119/82 H Blood Pressure Mean 94 Pulse Ox 100 Oxygen Delivery Method Room Air Positive well nourished and well developed General Appearance ED: well developed and NAD HEENT Reports TM's clear and moist mucous membranes HEENT Narrative: Patient has submandibular swelling with tenderness to palpation. The floor of the mouth is normal. She is able to touch her tongue to the roof of her mouth. There are some subtle faint erythema submental. Patient has had recent extractions of the right lower teeth. There is induration to the gingiva lateral to the dental extractions. normocephalic and atraumatic; Negative for trauma or tenderness Tympanic Membrane ED: Yes TM's clear Eyes PERRL and EOMs intact bilaterally General Eye ED: Negative for pale conjunctiva or scleral icterus Neck no lymphadenopathy, supple and no JVD General: Negative for tenderness Chest Wall inspection of chest normal and palpation of chest normal Chest: Negative for tenderness Resp normal respiratory effort and clear to auscultation bilaterally Effort and Inspection: Negative for respiratory distress or pain with movement Auscultation: Negative for rhonchi, wheezes or diminished lung sounds Cardio regular rate, regular rhythm, S1 normal heart sound, S2 normal heart sound and no murmurs Peripheral Pulses: pulses 2+ throughout GI normal to inspection, nondistended, normoactive bowel sounds, soft to palpation, non-tender, non-distended and no masses Back/Spine no CVA tenderness and no thoracic nor lumbar tenderness Extremity normal to inspection General Extremety ED: Negative for edema General Extremity: Negative for edema Neuro oriented x3, CN's II-XII intact bilaterally, no sensory deficits noted and gait normal Sensorium / Orientation: awake, alert, oriented to person, oriented to place and oriented to time Motor Exam: strength 5/5 throughout and strength abnormal Psych mental status grossly normal Skin no rashes or lesions noted and no wounds MDM MDM MDM Narrative Medical decision making narrative: IV line established on arrival. Patient was given morphine and Zofran. CBC with differential normal, 9.4, hemoglobin 11, hematocrit 34 and platelets 378. Chemistries unremarkable. Patient was started empirically on Zosyn 4.5 g IV. Patient has facial abscess with failed outpatient therapy. Patient at higher risk due to history of diabetes type 1. Case discussed with hospitalist will evaluate patient for admission. Oral surgeon will consult and evaluate patient for surgical intervention. Lab Data Attestation: I reviewed the patient's lab results. Labs: Laboratory Results - last 24 hr 08/06/22 08/06/22 14:35 14:35 WBC 9.4 RBC 3.78 L Hgb 11.3 L Hct 34.3 L MCV 90.7 MCH 29.9 MCHC 32.9 RDW Std Deviation 43.7 RDW Coeff of Yuly 13.3 Plt Count 378 MPV 9.1 Immature Gran % (Auto) 0.300 Neut % (Auto) 67.0 Lymph % (Auto) 22.7 [place] % (Auto) 8.3 Eos % (Auto) 1.3 Baso % (Auto) 0.4 Absolute Neuts (auto) 6.3 Absolute Lymphs (auto) 2.13 Nucleated RBC % 0 Sodium 137 Potassium 3.1 L Chloride 104 Carbon Dioxide 30.0 Anion Gap 3 L BUN 4 L Creatinine 0.64 Estim Creat Clear Calc 114.86 Est GFR (MDRD) Af Amer 136 Est GFR (MDRD) Non-Af 112 BUN/Creatinine Ratio 6.3 L Glucose 100 Calcium 8.9 Discharge Plan Triage Chief Complaint: Abscess ED Provider: Anni Hunter Dx/Rx/DC Orders Clinical Impression: Abscess of face, Pain, dental, History of type 1 diabetes mellitus Prescriptions: No Action (DME) FreeStyle Barney 14 Day Sensor Kit See Rx Instructions .ROUTE .MEDSUPPLY Qty: 2 8RF Rx Instructions: As directed (DME) Dexcom G6 Sensor Device See Rx Instructions .Route Qty: 9 1RF Rx Instructions: 1 sensor q 10 days oxycodone-acetaminophen [oxycodone-acetaminophen] 5-325 mg tablet 1 tab PO Q6H PRN PRN (Reason: pain) 5 Days Qty: 20 0RF ondansetron [ondansetron] 4 mg tablet,disintegrating 4 mg PO Q8H PRN PRN (Reason: Nausea) Qty: 10 0RF amoxicillin-pot clavulanate 400-57 mg/5 mL suspension for reconstitution 10 ml PO BID 10 Days Qty: 200 0RF (DME) Dexcom G6 Territory Sales Manager Misc See Rx Instructions .Route Qty: 1 0RF Rx Instructions: As directed (DME) Dexcom G6 Territory Sales Manager Misc See Rx Instructions .Route Qty: 1 0RF Rx Instructions: As directed Humalog U-100 Insulin 100 unit/mL solution See Rx Instructions SC QDAY MDD 110 Qty: 40 1RF Dose Instruction: uses up to 75 Units qd via pump SC QDAY; Rx Instructions: uses up to 110 Units qd via pump SC QDAY; (DME) Dexcom G6 Transmitter Device See Rx Instructions .Route Qty: 1 3RF Rx Instructions: 1 transmitter q 90 days (DME) Omnipod Dash Pods (Gen 4) Cartridge See Rx Instructions .ROUTE .MEDSUPPLY Qty: 10 2RF Rx Instructions: change every 72 hours Primary Care Provider: Care Physician,No Primary Referrals: Care Physician,No Primary [Primary Care Provider] - Disposition Disposition: Acute Care Hospital [facility]
[2022-08-06] MEDS: Ondansetron 4 MG/2 ML Vial IV (14:37)
[2022-08-06] MEDS: Morphine 4 MG/ML Syringe IV (14:38)
[2022-08-06] MEDS: 0.9% Normal Saline 1,000 ML 150 ML IV (14:40)
[2022-08-06 14:43] LABS: Absolute Lymphocyte Count 2.13 X10^3/uL (0.83-4.51); Absolute Neutrophil Count 6.3 X10^3/uL (2.0-7.7); Basophil# 0.04 X10^3/uL; Basophil% 0.4 % (0-1); Eosinophil# 0.12 X10^3/uL; Eosinophils% 1.3 % (0-5); Hematocrit 34.3 % (37-47); Hemoglobin 11.3 g/dL (12.0-15.0); Lymphocyte # 2.13 X10^3/ul (0.83-4.51); Lymphocyte % 22.7 % (19-41); Mean Corp Hgb Conc 32.9 g/dL (32-36); Mean Corpuscular Hgb 29.9 pg (27.0-32.0); Mean Corpuscular Volume 90.7 fL (81-99); Mean Platelet Vol. 9.1 fl (6.2-12.0); Monocyte# 0.78 X10^3/uL; Monocyte% 8.3 % (0-10); NRBC Flagged by Analyzer 0 % (0-5); Neutrophil # 6.29 X10^3/uL (2.7-7.7); Platelet Count 378 K/mm3 (150-450); RBC Distribution Width CV 13.3 % (11.6-14.6); RBC Distribution Width SD 43.7 fl (35.1-43.9); Red Blood Count 3.78 M/mm3 (4.2-5.4); White Blood Count 9.4 K/mm3 (4.4-11.0)
[2022-08-06 14:58] LABS: Anion Gap 3 (5-15); BUN 4 mg/dL (7-18); BUN/Creat Ratio 6.3 RATIO (10-20); Calcium,Total 8.9 mg/dL (8.5-10.1); Chloride 104 mmol/L (98-107); Creatinine, Serum 0.64 mg/dL (0.55-1.02); EST Glomerular Filtration Rate 112 mL/min (>60); Est Glom Filt Rate - Afr Amer 136 mL/min (>60); Estimated Creatinine Clearance 114.86 ml/min; Glucose 100 mg/dL (74-106); Potassium 3.1 mmol/L (3.5-5.1); Sodium Level 137 mmol/L (136-145)
--- NOTE | 2022-08-06 16:06 | NURSING ---
MED SURG TERELETSKY FACIAL ABSCESS WITH FAILED OUTPATIENT THERAPY
[2022-08-06 17:04] VITALS: BP 107/75; PULSE 80; RESP 14; TEMP 36.5; O2SAT 100
[2022-08-06 17:10] VITALS: BP 107/75; PULSE 80; RESP 14; TEMP 36.5; O2SAT 100
[2022-08-06 18:30] VITALS: BP 125/65; PULSE 77; RESP 16; TEMP 36.8; O2SAT 100
[2022-08-06 18:49] VITALS: BMI 29.5
--- NOTE | 2022-08-06 19:22 | HP.PCM.HOS_ITS ---
HPI - General General Date of Admission: 08/06/22 Date of Service: 08/06/22 Chief Complaint: Dental abscess HPI Narrative ANGELIC WILSON, is a 36 F who presents to the emergency room at [facility] after being sent in by her oral surgeon due to swelling in her anterior neck area and concern for dental abscess. Patient is having trouble swallowing solid foods, she has no complaints of any breathing difficulties however. Patient's lab in the emergency room revealed a normal white blood cell count, hemoglobin was 11.3, chemistry panel was remarkable for potassium of 3.1. Soft tissue CT of the neck showed a periodontal lucency of the left mandibular molars concerning for periodontal abscess. Patient has been seen in the ER [address] of the neck soft tissue at that time showed a left first mandibular molar periapical abscess along with probable periapical abscesses of the right second and third mandibular molars. Patient had been placed on antibiotics at that time and discharged home. Patient will be admitted to [place] [id number], she will be placed on IV Unasyn and seen by oral surgery, the plan is for the patient to go to surgery tomorrow for drainage of a possible submandibular abscess or periodontal abscess. [facility] Medical History Hypothyroidism Iron deficiency anemia Type 1 diabetes Uncontrolled type 1 diabetes mellitus Home Medications flash glucose sensor (FreeStyle Barney 14 Day Sensor kit) #2 ea 10/06/21 [Rx Last Taken Unknown] blood-glucose meter,continuous (Dexcom G6 Senior Corporate Accountant) #1 ea 02/09/22 [Rx Last Taken Unknown] blood-glucose sensor (Dexcom G6 Sensor device) #9 ea 03/05/22 [Rx Last Taken Unknown] blood-glucose meter,continuous (Dexcom G6 Senior Corporate Accountant) #1 ea 03/06/22 [Rx Last Taken Unknown] insulin lispro 100 unit/mL subcutaneous solution (Humalog U-100 Insulin) See Rx Instructions subcut QDAY e10.9 #40 mL 03/09/22 [Rx Last Taken 08/05/22] blood-glucose transmitter (Dexcom G6 Transmitter device) #1 ea 07/05/22 [Rx Last Taken Unknown] Omnipod Dash Pods (Gen 4) (insulin pump cart,cont inf,BT) #10 ea 07/31/22 [Rx Last Taken Unknown] ondansetron 4 mg disintegrating tablet 4 mg PO Q8H PRN PRN Nausea #10 tabs 08/03/22 [Rx Last Taken 08/05/22] oxycodone-acetaminophen 5 mg-325 mg tablet 1 tab PO Q6H PRN PRN pain 5 days #20 TABLETS 08/03/22 [Rx Last Taken Unknown] amoxicillin 400 mg-potassium clavulanate 57 mg/5 mL oral suspension 10 ml PO BID infection 08/06/22 [History Last Taken 08/06/22] amoxicillin 875 mg-potassium clavulanate 125 mg tablet 1 tab PO BID infection 08/06/22 [History Last Taken 08/05/22] Allergy/AdvReac Type Severity Reaction Status Date / Time shellfish derived Allergy Vomiting Verified 08/06/22 13:06 Family History Father Hypertension Heart disease Myocardial infarction Surgical History H/O: Social History household members: significant other Smoking Status: Never smoker second hand exposure: No alcohol intake: never substance use type: does not use ROS Constitutional Constitutional: Denies anorexia, change in weight, chills, fatigue, fever(s), malaise, night sweats or weakness Eyes Eyes: Denies blurry vision, change in vision, discharge from eye(s) or eye pain ENT HEENT: Reports other Details: Patient complains of generalized pain in the anterior lower mouth area, she also cannot open her mouth fully due to discomfort. Cardiovascular Cardiovascular: Denies chest pain, claudication, dyspnea on exertion, edema, lightheadedness or palpitations Respiratory/Chest Respiratory/Chest: Denies cough, dyspnea, excessive phlegm production, hemoptysis, shortness of breath at rest or shortness of breath with exertion Gastrointestinal Gastrointestinal: Denies abdominal pain, constipation, diarrhea, hematemesis, hematochezia, melena, nausea or vomiting Genitourinary Genitourinary: Denies difficulty urinating, dysuria, hematuria, nocturia, urinary frequency, urinary hesitancy, urinary incontinence or urinary urgency Musculoskeletal Musculoskeletal: Denies back pain, joint pain, joint stiffness, joint swelling, myalgias or neck pain Neurologic Neurologic: Denies abnormal gait, abnormal speech, dizziness, focal weakness, headache(s), loss of vision, numbness, other visual disturbances, paresthesias, syncope or tingling Psychiatric Psychiatric: Denies anxiety, cognitive impairment, depression, irritability, mood swings or suicidal ideation Endocrine Endocrinology: Denies change in body appearance, cold intolerance, excessive sweating, heat intolerance, polydipsia or polyuria Hematologic/Lymphatic Hematologic/Lymphatic: Denies none, anemia, easy bleeding, easy bruising or lymphadenopathy Allergic/Immunologic Allergic/Immunologic: Denies rhinitis, urticaria, eczemia or asthma Vital Signs Vital Signs Vital Signs: 08/06/22 13:07 08/06/22 17:04 08/06/22 17:10 Temperature 97.8 F 97.7 F L 97.7 F L Temperature Source Temporal Temporal Oral Pulse Rate 99 80 80 Respiratory Rate 18 14 14 Blood Pressure 119/82 H 107/75 107/75 Blood Pressure Mean 94 85 85 Blood Pressure Source Blood Pressure Position Blood Pressure Location Pulse Ox 100 100 100 Oxygen Delivery Method Room Air Room Air Room Air 08/06/22 18:30 Temperature 98.2 F Temperature Source Temporal Pulse Rate 77 Respiratory Rate 16 Blood Pressure 125/65 H Blood Pressure Mean 85 Blood Pressure Source Monitor Blood Pressure Position Semi-Fowlers Blood Pressure Location Left Arm Pulse Ox 100 Oxygen Delivery Method Room Air Weight Weight: 83.053 kg Body Mass Index (BMI) 29.5 Physical Exam Const alert, oriented x3 and no apparent distress General Appearance: cooperative, well kempt and well developed Orientation / Consciousness: awake, oriented to person, oriented to place and oriented to time HEENT normocephalic and head/scalp atraumatic HEENT Narrative: Patient has a hard area in the anterior neck area under her chin that is firm to palpation, it is also tender, this examiner was not able to do a thorough oral exam due to the patient's inability to open her mouth enough for complete exam. Eyes PERRL, EOMs intact bilaterally and conjunctivae normal Neck supple, no JVD, thyroid normal and no carotid bruits General: trachea midline Resp normal respiratory effort, no retractions, no use of accessory muscles and clear to auscultation bilaterally Auscultation: Negative for rales, rhonchi or wheezes Cardio regular rate, regular rhythm, S1 normal heart sound, S2 normal heart sound, no murmurs, no rub and no gallops GI normal to inspection, nondistended, normoactive bowel sounds, soft to palpation, non-tender and non-distended Extremity no clubbing, cyanosis or edema Skin no rashes or lesions noted General Skin Exam: no breakdown Neuro oriented x3, CN's II-XII intact bilaterally, moves all extremities, no focal motor deficits and no sensory deficits noted Sensorium / Orientation: awake, alert, oriented to person, oriented to place and oriented to time Speech: speech normal Psych affect normal Results Lab / Micro Data Result Diagrams: 08/06/22 14:35 08/06/22 14:35 Labs: Laboratory Results - last 24 hr 08/06/22 14:35: WBC 9.4, RBC 3.78 L, Hgb 11.3 L, Hct 34.3 L, MCV 90.7, MCH 29.9, MCHC 32.9, RDW Std Deviation 43.7, RDW Coeff of Yuly 13.3, Plt Count 378, MPV 9.1, Immature Gran % (Auto) 0.300, Neut % (Auto) 67.0, Lymph % (Auto) 22.7, [place] % (Auto) 8.3, Eos % (Auto) 1.3, Baso % (Auto) 0.4, Absolute Neuts (auto) 6.3, Absolute Lymphs (auto) 2.13, Nucleated RBC % 0 08/06/22 14:35: Sodium 137, Potassium 3.1 L, Chloride 104, Carbon Dioxide 30.0, Anion Gap 3 L, BUN 4 L, Creatinine 0.64, Estim Creat Clear Calc 114.86, Est GFR (MDRD) Af Amer 136, Est GFR (MDRD) Non-Af 112, BUN/Creatinine Ratio 6.3 L, Glucose 100, Calcium 8.9 Assessment & Plan Assessment/Plan (1) Acute periodontal abscess: PLAN: Plan 1. Periodontal abscess-patient will be admitted to [facility] 3, IV Unasyn will be administered, she will receive IV fluids and she will be seen in consultation by oral surgery-it is planned that she will go to surgery tomorrow #2 hypokalemia-patient will be given IV fluids with potassium, BMP will be checked tomorrow #3 type 1 diabetes-patient is on an insulin pump, I have written an order that she is to adjust her pump as necessary based on her blood sugars, she does have a continuous glucose monitoring system (CGM system) and is able to adjust her insulin pump accordingly. Total clinical time spent by myself addressing the patient's medical issues, reviewing all her data, and collaborating with patient's care team: 55 minutes Charges/Coding Visit Charges Inpatient E&M: 92685 Init Hosp L2
[2022-08-06 19:59] VITALS: BP 134/79; PULSE 88; RESP 18; TEMP 36.6; O2SAT 100
[2022-08-06] MEDS: oxyCODONE 5 MG Tablet 10 MG PO ×2 (20:02→21:44)
[2022-08-06] MEDS: 0.9% Saline Lock 10 ML Syringe IV (20:06)
[2022-08-06] MEDS: Acetaminophen 325 MG Tablet 650 MG PO (21:43)
[2022-08-06] MEDS: KCL 20MEQ in 0.9% NS 20 MEQ/1,000 ML IV.SOLN. 125 MEQ IV (21:49)
--- NOTE | 2022-08-06 23:57 | NURSING ---
department notified this is a Mother. This IBCLC called [employer] to offer support to help meet the patient's needs. Per patient, her child is now 2yrs old and nurses infrequently. No support needs at this time. Made aware we are available if that changes during her hospital stay or if she has any related questions or concerns. Cathi Patel RN IBCLC
[2022-08-07] VITALS (13 sets, daily range): BP systolic 111–143; BP diastolic 64–87; PULSE 75–107; RESP 16–20; TEMP 36.5–37.9; O2SAT 93–100; BMI 29.5
[2022-08-07] MEDS: Ondansetron 4 MG/2 ML Vial IV ×2 (05:42→10:50)
[2022-08-07] MEDS: oxyCODONE 5 MG Tablet 10 MG PO (05:42)
--- NOTE | 2022-08-07 05:51 | NURSING ---
Addendum entered by Elvira Montoya 08/07/22 06:48: Patient's sugar at this time on her device is 82. Original Note: Patient's sugar is 70. She suspended her insulin for 30 minutes then she will recheck her sugar. (Dr. Horton put in an order that patient can manage her insulin and take her sugar with her continuous device.)
[2022-08-07 06:51] LABS: Absolute Lymphocyte Count 2.62 X10^3/uL (0.83-4.51); Absolute Neutrophil Count 4.9 X10^3/uL (2.0-7.7); Basophil# 0.04 X10^3/uL; Basophil% 0.5 % (0-1); Eosinophil# 0.17 X10^3/uL; Hematocrit 32.1 % (37-47); Hemoglobin 10.4 g/dL (12.0-15.0); Lymphocyte # 2.62 X10^3/ul (0.83-4.51); Mean Corp Hgb Conc 32.4 g/dL (32-36); Mean Corpuscular Hgb 29.8 pg (27.0-32.0); Mean Platelet Vol. 9.5 fl (6.2-12.0); Monocyte# 0.72 X10^3/uL; Monocyte% 8.5 % (0-10); NRBC Flagged by Analyzer 0 % (0-5); Neutrophil # 4.88 X10^3/uL (2.7-7.7); Neutrophil % 57.6 % (47-70); Platelet Count 373 K/mm3 (150-450); RBC Distribution Width CV 13.5 % (11.6-14.6); RBC Distribution Width SD 45.2 fl (35.1-43.9); Red Blood Count 3.49 M/mm3 (4.2-5.4); White Blood Count 8.5 K/mm3 (4.4-11.0)
[2022-08-07 07:16] LABS: Anion Gap 8 (5-15); BUN 2 mg/dL (7-18); Chloride 107 mmol/L (98-107); Creatinine, Serum 0.51 mg/dL (0.55-1.02); EST Glomerular Filtration Rate 147 mL/min (>60); Est Glom Filt Rate - Afr Amer 177 mL/min (>60); Estimated Creatinine Clearance 144.13 ml/min; Glucose 59 mg/dL (74-106); Potassium 2.8 mmol/L (3.5-5.1); Sodium Level 142 mmol/L (136-145)
--- NOTE | 2022-08-07 07:28 | PCM.CONS.GEN ---
Assessment & Plan Assessment/Plan (1) Pain, dental: PLAN: Extraction necessary teeth (2) Abscess of face: PLAN: I and D of involved fascial spaces (3) Painful swallowing: PLAN: As above (4) Acute periapical abscess: PLAN: I and D and dental extractions (5) Acute periodontal abscess: PLAN: Dental extractions (6) Dental caries extending into pulp: PLAN: Dental extractions PLAN: Plan Bilateral submandibular, sublingual and submental I and D both intra-orally and extra-orally and extraction of necessary teeth 18 19 20 specifically today in operationg room. The plan was gone over in detail with the patient in her room #304. HPI Consult Data Date of Consult: 08/07/22 HPI Narrative Reason for Consultation: Neck and facial abscess HPI Narrative: ANGELIC WILSON, is a 36 F who presents to ER after seeing oral surgeon Zhen Manzo in his office yesterday. He advised admission and I and D possible removal of necessary teeth. [facility] Medical History (Updated 08/07/22 @ 07:[address] Tyler Everett, DDS) Abscess of face Hypothyroidism Iron deficiency anemia Pain, dental Painful swallowing Type 1 diabetes Uncontrolled type 1 diabetes mellitus Home Medications flash glucose sensor (FreeStyle Barney 14 Day Sensor kit) #2 ea 10/06/21 [Rx Last Taken Unknown] blood-glucose meter,continuous (Dexcom G6 Assistant Credit Manager) #1 ea 02/09/22 [Rx Last Taken Unknown] blood-glucose sensor (Dexcom G6 Sensor device) #9 ea 03/05/22 [Rx Last Taken Unknown] blood-glucose meter,continuous (Dexcom G6 Assistant Credit Manager) #1 ea 03/06/22 [Rx Last Taken Unknown] insulin lispro 100 unit/mL subcutaneous solution (Humalog U-100 Insulin) See Rx Instructions subcut QDAY e10.9 #40 mL 03/09/22 [Rx Last Taken 08/05/22] blood-glucose transmitter (Dexcom G6 Transmitter device) #1 ea 07/05/22 [Rx Last Taken Unknown] Omnipod Dash Pods (Gen 4) (insulin pump cart,cont inf,BT) #10 ea 07/31/22 [Rx Last Taken Unknown] ondansetron 4 mg disintegrating tablet 4 mg PO Q8H PRN PRN Nausea #10 tabs 08/03/22 [Rx Last Taken 08/05/22] oxycodone-acetaminophen 5 mg-325 mg tablet 1 tab PO Q6H PRN PRN pain 5 days #20 TABLETS 08/03/22 [Rx Last Taken Unknown] amoxicillin 400 mg-potassium clavulanate 57 mg/5 mL oral suspension 10 ml PO BID infection 08/06/22 [History Last Taken 08/06/22] amoxicillin 875 mg-potassium clavulanate 125 mg tablet 1 tab PO BID infection 08/06/22 [History Last Taken 08/05/22] Allergy/AdvReac Type Severity Reaction Status Date / Time shellfish derived Allergy Vomiting Verified 08/06/22 13:06 Family History Father Hypertension Heart disease Myocardial infarction Surgical History H/O: Social History household members: significant other Smoking Status: Never smoker second hand exposure: No alcohol intake: never substance use type: does not use ROS ROS Narrative Type 1 IDDM otherwise healthy Physical Exam Const alert and oriented x3 Constitutional Narrative: 36 yo female certainly with distress of pain and swelling x 1 week in her bilateral neck and sublingual regions resulting in difficulty in swallowing. General Appearance: cooperative, well kempt, well developed and in distress Positive for moderate HEENT normocephalic and moist oral mucous membranes HEENT Narrative: Bilateral submandibular, sublingual and submental swelling. Orally buccal and sublingual swelling more right than left. Can open her mouth and is handling secretions. PO intake somewhat but with pain. Head and Scalp: normal to inspection, normocephalic and atraumatic Face and Sinus: facial edema right (Right and left submandibular swelling.) Positive for mandible (Tender posteriorly more right than left), submandibular (Bilateral swelling) and chin (submental swelling) Mouth: oral and palatal mucosa normal Teeth and Gingiva: abnormal tooth and associated gingiva Positive for tenderness and associated gingival edema and poor dentition Throat: posterior oropharynx normal and uvula midline Eyes PERRL, conjunctivae normal, no scleral icterus and no papilledema General Eye: normal appearance of both eyes and normal light reflex Periorbital: periorbital findings normal Sclera: sclera normal Pupil: PERRL Neck full ROM Neck Narrative: Bilateral submandibular and submental swelling. Resp normal respiratory effort Lab / Micro Data Result Diagrams: 08/07/22 05:55 08/07/22 05:55 Labs: Laboratory Results - last 24 hr 08/06/22 14:35: WBC 9.4, RBC 3.78 L, Hgb 11.3 L, Hct 34.3 L, MCV 90.7, MCH 29.9, MCHC 32.9, RDW Std Deviation 43.7, RDW Coeff of Yuly 13.3, Plt Count 378, MPV 9.1, Immature Gran % (Auto) 0.300, Neut % (Auto) 67.0, Lymph % (Auto) 22.7, Hamblen % (Auto) 8.3, Eos % (Auto) 1.3, Baso % (Auto) 0.4, Absolute Neuts (auto) 6.3, Absolute Lymphs (auto) 2.13, Nucleated RBC % 0 08/06/22 14:35: Sodium 137, Potassium 3.1 L, Chloride 104, Carbon Dioxide 30.0, Anion Gap 3 L, BUN 4 L, Creatinine 0.64, Estim Creat Clear Calc 114.86, Est GFR (MDRD) Af Amer 136, Est GFR (MDRD) Non-Af 112, BUN/Creatinine Ratio 6.3 L, Glucose 100, Calcium 8.9 08/07/22 05:55: WBC 8.5, RBC 3.49 L, Hgb 10.4 L, Hct 32.1 L, MCV 92.0, MCH 29.8, MCHC 32.4, RDW Std Deviation 45.2 H, RDW Coeff of Yuly 13.5, Plt Count 373, MPV 9.5, Immature Gran % (Auto) 0.400, Neut % (Auto) 57.6, Lymph % (Auto) 31.0, [place] % (Auto) 8.5, Eos % (Auto) 2.0, Baso % (Auto) 0.5, Absolute Neuts (auto) 4.9, Absolute Lymphs (auto) 2.62, Nucleated RBC % 0 08/07/22 05:55: Sodium 142, Potassium 2.8 L, Chloride 107, Carbon Dioxide 27.0, Anion Gap 8, BUN 2 L, Creatinine 0.51 L, Estim Creat Clear Calc 144.13, Est GFR (MDRD) Af Amer 177, Est GFR (MDRD) Non-Af 147, BUN/Creatinine Ratio 4.0 L, Glucose 59 L, Calcium 8.0 L
--- NOTE | 2022-08-07 08:44 | PN.HOSP_ITS ---
Subjective Subjective Follow-up on dental abscess: Patient was seen and examined. She is going for I&D by maxillofacial today. Denied any fever or chills. Admits to nausea and vomiting. Objective Data Objective Data Vital Signs: Vital Signs Temp Pulse Resp BP Pulse Ox O2 Del Method 97.7 F L 75 18 112/72 97 Room Air 08/07/22 03:05 08/07/22 03:05 08/07/22 03:05 08/07/22 03:05 08/07/22 03:05 08/07/22 03:05 Oxygen Delivery Method Room Air Weight: 83.053 kg Body Mass Index (BMI) 29.5 Intake & Output: Intake and Output for Last 24 Hours 08/05/22 08/06/22 08/07/22 23:59 23:59 23:59 Intake Total 862 / 862 874.00 / 874.00 Balance 862 / 862 874.00 / 874.00 Lab / Micro Data Result Diagrams: 08/07/22 05:55 08/07/22 05:55 Labs: Laboratory Results - last 24 hr 08/06/22 14:35: WBC 9.4, RBC 3.78 L, Hgb 11.3 L, Hct 34.3 L, MCV 90.7, MCH 29.9, MCHC 32.9, RDW Std Deviation 43.7, RDW Coeff of Yuly 13.3, Plt Count 378, MPV 9.1, Immature Gran % (Auto) 0.300, Neut % (Auto) 67.0, Lymph % (Auto) 22.7, [place]nairy % (Auto) 8.3, Eos % (Auto) 1.3, Baso % (Auto) 0.4, Absolute Neuts (auto) 6.3, Absolute Lymphs (auto) 2.13, Nucleated RBC % 0 08/06/22 14:35: Sodium 137, Potassium 3.1 L, Chloride 104, Carbon Dioxide 30.0, Anion Gap 3 L, BUN 4 L, Creatinine 0.64, Estim Creat Clear Calc 114.86, Est GFR (MDRD) Af Amer 136, Est GFR (MDRD) Non-Af 112, BUN/Creatinine Ratio 6.3 L, Glucose 100, Calcium 8.9 08/07/22 05:55: WBC 8.5, RBC 3.49 L, Hgb 10.4 L, Hct 32.1 L, MCV 92.0, MCH 29.8, MCHC 32.4, RDW Std Deviation 45.2 H, RDW Coeff of Yuly 13.5, Plt Count 373, MPV 9.5, Immature Gran % (Auto) 0.400, Neut % (Auto) 57.6, Lymph % (Auto) 31.0, [place] % (Auto) 8.5, Eos % (Auto) 2.0, Baso % (Auto) 0.5, Absolute Neuts (auto) 4.9, Absolute Lymphs (auto) 2.62, Nucleated RBC % 0 08/07/22 05:55: Sodium 142, Potassium 2.8 L, Chloride 107, Carbon Dioxide 27.0, Anion Gap 8, BUN 2 L, Creatinine 0.51 L, Estim Creat Clear Calc 144.13, Est GFR (MDRD) Af Amer 177, Est GFR (MDRD) Non-Af 147, BUN/Creatinine Ratio 4.0 L, Glucose 59 L, Calcium 8.0 L 08/07/22 06:30: Hemoglobin A1c 6.0 H Physical Exam Narrative Physical exam: General: Alert, Oriented x3, Cooperative, appears in moderate discomfort HEENT: Atraumatic, swelling of the left mandibular region Oral: Moist Mucosa Neck: Supple Lungs: Clear to auscultation Cardiovascular: HS I+II, regular, no murmurs Abdomen: Bowel Sounds Present, Soft, Non Tender Extremities: No edema Skin: No rashes, No breakdown Neurological: Grossly intact Psych/Mental Status: Appropriate Assessment & Plan Assessment/Plan (1) Acute periodontal abscess: PLAN: Plan 1. Acute left periodontal abscess, patient is going for I&D by maxillofacial today WBC is 8.5, continue on IV Unasyn, pain control Follow-up with multiple facial recommendations 2. Severe hypokalemia/hypomagnesemia, potassium was 2.9, magnesium is 1.6, Replaced, recheck in a.m. 3.Type I DM, on insulin pump, continue with insulin pump 4. DVT prophylaxis?low risk, early ambulation recommended Charges/Coding Visit Charges Inpatient E&M: 02566 Subs Hosp L2
[2022-08-07 09:04] LABS: Magnesium 1.6 mg/dL (1.6-2.6)
[2022-08-07] MEDS: Potassium Chloride 10mEq/100mL 10 MEQ/100 ML IV.SOLN. 100 MEQ IV BOLUS ×2 (09:26→16:38)
[2022-08-07] MEDS: 0.9% Saline Lock 10 ML Syringe IV (10:47)
[2022-08-07] MEDS: Morphine 2 MG/ML Syringe 1 MG IV ×3 (10:47→21:39)
--- NOTE | 2022-08-07 11:10 | CASEMGMT ---
EKATERINA KENNEDY Assessment: Face to Face with pt for initial transition planning/care coordination assessment. RN BRENT introduced self and role at [facility], pt voices understanding and consents to assessment. Pt is A/O x4 and answers all questions appropriately at this time. Pt sitting up in bed in no distress. Care providers, pharmacy, and demographics verified/updated. Admitting Dx: dental abscess PCP:Pt denies, provided pt with a local healthcare directory pamphlet Specialists:vicki Campos Pharmacy: [facility] Insurance: [employer] Prescription Benefit: yes LNOK: Eh Jay, ; Tracy Hanson, mother Living Arrangements: Pt lives with , 4 children and mother in a single story home with 2 steps to enter without a rail. Pt reports she is I in ADL's and denies concerns at home. Transportation: Pt drives self and denies concerns with transportation. DME/HHC/SNF: Pt has a BGM with sufficient supply of strips and lancets. Pt has an insulin pump. Pt denies hx of HHC or SNF stays. Pt states no concerns with going home at time of dc. Pt states no further concerns/needs. CM to follow. Advised pt to ask CM if any further question/concerns/needs arise, voices understanding. Pt Goal: Home Plan: Home
[2022-08-07] MEDS: Potassium Chloride 10mEq/100mL 10 MEQ/100 ML IV.SOLN. 50 MEQ IV BOLUS ×2 (11:22→15:33)
--- NOTE | 2022-08-07 11:55 | NURSING ---
Updated Sherrill in [facility] regarding patient getting electrolyte replacement and Unasyn was not compatible with K+ or Mg+. 1200 dose of Unasyn sent down to AC with transporter and also 2 bags of k+.
[2022-08-07] MEDS: Lactated Ringers 1,000 ML 15 ML IV ×2 (12:34→15:17)
[2022-08-07] MEDS: Lidocaine 2% /Epi 1:100 (20ml) 20 ML VIAL (13:38)
--- NOTE | 2022-08-07 15:17 | OP.PCM_ITS ---
Report of Operation Date of Procedure: 08/07/22 Pre-Operative Diagnosis: Bilateral submandibular, sublingual and submental space infection. Abscessed teeth Post-Operative Diagnosis: same Surgery/Procedure Performed:: Bilateral submandibular spaces, sublingual spaces and submental space Incision and drainage Description of Surgical Findings:: Purulent exudate all spaces Surgeon: Tyler Everett Type of Anesthesia: General Special Medications: none Specimen's removed: Pus Drains: 3 Estimated Blood Loss (mL): 10-20cc Description of Procedure: Patient placed into supine position on OR table IV anesthesia administered intubated orally.. Prepped and draped with sterile linen. Local anesthesia infiltrated into neck incision sites and by intra-oral bilateral Inferior alveolar nerve bocks. Teeth 18 19 20 removed with full flaps elevated. Went to left submax region 2 fingers below the inferior border of mandible and sharp/blunt dissection up to inferior border of mandible. Drains placed with some return of exudate. Sutured drain and sutured intra-oral incision loosely. Attention directed to right submax region. 2cm incision 2 fingers below the mandible with dissection to sublingual and buccal spaces. Much pus returned on sublingual dissection. Intra-orally the recent extractions 30 31 the incision was made and dissection to inferior border of mandible. Drains placed. Intra- oral incision loosely tacked together. Lastly submental dissection to the inferior border of mandible was done. Minimal exudate noted. Sutured drain in place. Irrigated and suctioned hypopharyngeal region out awakened the patient and she was extubated and taken to PACU in stable condition. Procedure Start Time: 01:10 Procedure Stop Time: 02:30 Complications none Admit VTE Documentation VTE Mechan Device Prophylaxis: SCD's
[2022-08-07 15:26] LABS: Bedside Glucose 129 mg/dL (74-106)
--- NOTE | 2022-08-07 17:01 | SUR.PHASEI ---
PATIENT UP TO BSC AND VOIDED QS BUT UNABLE TO COLLECT D/T WIPES THROWN IN TOILET.
[2022-08-07] MEDS: KCL 20MEQ in 0.9% NS 20 MEQ/1,000 ML IV.SOLN. 125 MEQ IV (17:36)
[2022-08-08] MEDS: Ondansetron 4 MG/2 ML Vial IV (00:25)
[2022-08-08 00:51] VITALS: BP 135/80; PULSE 84; RESP 18; TEMP 37; O2SAT 100
[2022-08-08] MEDS: oxyCODONE 5 MG Tablet 10 MG PO ×4 (00:54→21:06)
[2022-08-08] MEDS: KCL 20MEQ in 0.9% NS 20 MEQ/1,000 ML IV.SOLN. 125 MEQ IV ×3 (00:55→18:05)
[2022-08-08] MEDS: Morphine 2 MG/ML Syringe 1 MG IV ×2 (03:19→07:53)
[2022-08-08] MEDS: Acetaminophen 325 MG Tablet 650 MG PO ×3 (05:33→21:07)
[2022-08-08 05:38] VITALS: BP 131/85; PULSE 82; RESP 18; TEMP 36.6; O2SAT 100
[2022-08-08 07:27] LABS: Absolute Lymphocyte Count 2.18 X10^3/uL (0.83-4.51); Absolute Neutrophil Count 5.6 X10^3/uL (2.0-7.7); Basophil# 0.04 X10^3/uL; Basophil% 0.5 % (0-1); Eosinophil# 0.11 X10^3/uL; Eosinophils% 1.3 % (0-5); Hematocrit 30.5 % (37-47); Hemoglobin 9.8 g/dL (12.0-15.0); Lymphocyte # 2.18 X10^3/ul (0.83-4.51); Lymphocyte % 24.8 % (19-41); Mean Corp Hgb Conc 32.1 g/dL (32-36); Mean Corpuscular Hgb 29.8 pg (27.0-32.0); Mean Corpuscular Volume 92.7 fL (81-99); Mean Platelet Vol. 9.1 fl (6.2-12.0); Monocyte# 0.76 X10^3/uL; Monocyte% 8.7 % (0-10); NRBC Flagged by Analyzer 0 % (0-5); Neutrophil # 5.64 X10^3/uL (2.7-7.7); Neutrophil % 64.1 % (47-70); Platelet Count 321 K/mm3 (150-450); RBC Distribution Width CV 13.3 % (11.6-14.6); RBC Distribution Width SD 45.6 fl (35.1-43.9); Red Blood Count 3.29 M/mm3 (4.2-5.4); White Blood Count 8.8 K/mm3 (4.4-11.0)
[2022-08-08 08:06] LABS: ALB/GLOB Ratio 0.6 RATIO (0.9-2.4); AST(SGOT) 12 U/L (15-37); Alanine Aminotransfer ALT/SGPT 13 U/L (13-56); Albumin, Serum 2.3 g/dL (3.2-5.0); Alkaline Phosphatase 67 U/L (45-117); Anion Gap 5 (5-15); BUN 2 mg/dL (7-18); BUN/Creat Ratio 3.5 RATIO (10-20); Calcium,Total 7.9 mg/dL (8.5-10.1); Chloride 110 mmol/L (98-107); Creatinine, Serum 0.57 mg/dL (0.55-1.02); EST Glomerular Filtration Rate 127 mL/min (>60); Est Glom Filt Rate - Afr Amer 154 mL/min (>60); Estimated Creatinine Clearance 128.96 ml/min; Globulin 3.8 g/dL (2.2-4.2); Glucose 66 mg/dL (74-106); Magnesium 1.7 mg/dL (1.6-2.6); Potassium 3.3 mmol/L (3.5-5.1); Protein, Total 6.1 g/dL (6.4-8.2); Sodium Level 142 mmol/L (136-145)
--- NOTE | 2022-08-08 09:26 | PN.HOSP_ITS ---
Subjective Subjective Follow-up on dental abscess: Patient was seen and examined.?Patient is status post I&D of bilateral submandibular spaces, sublingual spaces and started mental spaces. She feels improved. She has been able to eat. Pain is fairly controlled. Denied any fever or chills. Objective Data Objective Data Vital Signs: Vital Signs Temp Pulse Resp BP Pulse Ox O2 Del Method 98 F 82 18 131/85 H 100 Room Air 08/08/22 05:38 08/08/22 05:38 08/08/22 05:38 08/08/22 05:38 08/08/22 05:38 08/08/22 05:38 Oxygen Delivery Method Room Air Weight: 83.053 kg Body Mass Index (BMI) 29.5 Intake & Output: Intake and Output for Last 24 Hours 08/06/22 08/07/22 08/08/22 23:59 23:59 23:59 Intake Total 862 / 862 3442.83 / 3442.83 2305.25 / 2305.25 Balance 862 / 862 3442.83 / 3442.83 2305.25 / 2305.25 Lab / Micro Data Result Diagrams: 08/08/22 07:13 08/08/22 07:13 Labs: Laboratory Results - last 24 hr 08/07/22 15:07: POC Glucose 129 H 08/08/22 07:13: WBC 8.8, RBC 3.29 L, Hgb 9.8 L, Hct 30.5 L, MCV 92.7, MCH 29.8, MCHC 32.1, RDW Std Deviation 45.6 H, RDW Coeff of Yuly 13.3, Plt Count 321, MPV 9.1, Immature Gran % (Auto) 0.600, Neut % (Auto) 64.1, Lymph % (Auto) 24.8, [place] % (Auto) 8.7, Eos % (Auto) 1.3, Baso % (Auto) 0.5, Absolute Neuts (auto) 5.6, Absolute Lymphs (auto) 2.18, Nucleated RBC % 0 08/08/22 07:13: Sodium 142, Potassium 3.3 L, Chloride 110 H, Carbon Dioxide 27.0, Anion Gap 5, BUN 2 L, Creatinine 0.57, Estim Creat Clear Calc 128.96, Est GFR (MDRD) Af Amer 154, Est GFR (MDRD) Non-Af 127, BUN/Creatinine Ratio 3.5 L, Glucose 66 L, Calcium 7.9 L, Magnesium 1.7, Total Bilirubin 0.30, AST 12 L, ALT 13, Alkaline Phosphatase 67, Total Protein 6.1 L, Albumin 2.3 L, Globulin 3.8, Albumin/Globulin Ratio 0.6 L Physical Exam Narrative Physical exam: General: Alert, oriented x3, cooperative, in mild discomfort HEENT: Atraumatic, bilateral dressings in lower jaws. Oral: Moist Mucosa Neck: Supple Lungs: Diminished to auscultation Cardiovascular: HS I+II, regular, no murmurs Abdomen: Bowel Sounds Present, Soft, Non Tender Extremities: No edema Skin: No rashes, No breakdown Neurological: Grossly intact Psych/Mental Status: Appropriate Assessment & Plan Assessment/Plan (1) Acute periodontal abscess: PLAN: Plan 1. POD #1, s/p I & D of bilateral submandibular spaces, sublingual spaces and submental space, abscessed teeth WBC is 8.8, continue on IV Unasyn, pain control Follow-up with oral surgery recommendation 2. Severe hypokalemia/hypomagnesemia, potassium was 3.3, magnesium is 1.7, Replaced, recheck in a.m. 3.Type I DM, on insulin pump, continue with insulin pump 4. DVT prophylaxis?low risk, early ambulation recommended Charges/Coding Visit Charges Inpatient E&M: 34527 Subs Hosp L2
[2022-08-08 09:45] VITALS: BP 118/76; PULSE 80; RESP 18; TEMP 37.1
--- NOTE | 2022-08-08 11:03 | NURSING ---
pt continues to monitor and treat her blood sugars as she has as outpt-drs aware and gave permission, am glucose was 84-pt upgraded to reg diet so she has more choices and is aware what she can/can't eat
[2022-08-08] MEDS: Potassium Chloride Oral Tablet 20 MEQ 60 MEQ PO (12:16)
--- NOTE | 2022-08-08 13:05 | PCM.PN.BLA ---
Progress Note Patient seen in room with her here as well. She states she is feeling much better. Vitals are stable no fever no elevated whit count. She is tolerating PO well. Drains at this point with serosanguinous drainage. Decided to remove drains and She will continue on IV antibiotics and fluids and probable discharge to home 08/09/22. Physical Exam Narrative no swallowing or airway issues. Assessment & Plan Assessment/Plan (1) Abscess of face: (2) Dental caries extending into pulp: PLAN: Plan Doing well post of I and D of neck and oral cavity. Probable d/c home tomorrow
[2022-08-08 21:02] VITALS: BP 121/71; PULSE 74; RESP 18; TEMP 37.2; O2SAT 100
[2022-08-08] MEDS: 0.9% Saline Lock 10 ML Syringe IV (21:08)
[2022-08-09 00:26] VITALS: PULSE 65; RESP 16; O2SAT 97
[2022-08-09] MEDS: KCL 20MEQ in 0.9% NS 20 MEQ/1,000 ML IV.SOLN. 125 MEQ IV (00:32)
[2022-08-09 02:30] VITALS: PULSE 74; RESP 16; O2SAT 95
[2022-08-09 02:41] VITALS: BP 109/65; PULSE 69; RESP 16; TEMP 36.5; O2SAT 98
[2022-08-09] MEDS: oxyCODONE 5 MG Tablet 10 MG PO ×2 (02:47→05:12)
[2022-08-09] MEDS: Acetaminophen 325 MG Tablet 650 MG PO (05:12)
[2022-08-09 05:15] VITALS: BP 136/63; PULSE 77; RESP 18; TEMP 37.1; O2SAT 99
[2022-08-09 06:19] LABS: Absolute Lymphocyte Count 2.04 X10^3/uL (0.83-4.51); Absolute Neutrophil Count 4.4 X10^3/uL (2.0-7.7); Basophil# 0.03 X10^3/uL; Basophil% 0.4 % (0-1); Eosinophil# 0.37 X10^3/uL; Eosinophils% 4.8 % (0-5); Hematocrit 32.4 % (37-47); Hemoglobin 10.5 g/dL (12.0-15.0); Lymphocyte # 2.04 X10^3/ul (0.83-4.51); Lymphocyte % 26.7 % (19-41); Mean Corp Hgb Conc 32.4 g/dL (32-36); Mean Corpuscular Hgb 30.3 pg (27.0-32.0); Mean Corpuscular Volume 93.4 fL (81-99); Mean Platelet Vol. 9.6 fl (6.2-12.0); Monocyte# 0.78 X10^3/uL; Monocyte% 10.2 % (0-10); NRBC Flagged by Analyzer 0 % (0-5); Neutrophil # 4.39 X10^3/uL (2.7-7.7); Neutrophil % 57.5 % (47-70); Platelet Count 331 K/mm3 (150-450); RBC Distribution Width CV 13.3 % (11.6-14.6); RBC Distribution Width SD 45.5 fl (35.1-43.9); Red Blood Count 3.47 M/mm3 (4.2-5.4); White Blood Count 7.6 K/mm3 (4.4-11.0)
[2022-08-09 06:47] LABS: ALB/GLOB Ratio 0.6 RATIO (0.9-2.4); AST(SGOT) 21 U/L (15-37); Alanine Aminotransfer ALT/SGPT 21 U/L (13-56); Albumin, Serum 2.4 g/dL (3.2-5.0); Alkaline Phosphatase 79 U/L (45-117); Anion Gap 6 (5-15); BUN 3 mg/dL (7-18); BUN/Creat Ratio 5.6 RATIO (10-20); Calcium,Total 8.4 mg/dL (8.5-10.1); Chloride 105 mmol/L (98-107); Creatinine, Serum 0.54 mg/dL (0.55-1.02); EST Glomerular Filtration Rate 136 mL/min (>60); Est Glom Filt Rate - Afr Amer 165 mL/min (>60); Estimated Creatinine Clearance 136.12 ml/min; Glucose 204 mg/dL (74-106); Potassium 6.3 mmol/L (3.5-5.1); Protein, Total 6.4 g/dL (6.4-8.2); Sodium Level 137 mmol/L (136-145)
[2022-08-09] MEDS: Ondansetron 4 MG/2 ML Vial IV (07:29)
--- NOTE | 2022-08-09 08:04 | PCM.PN.HOSP ---
Objective Data Objective Data Vital Signs: Vital Signs Temp Pulse Resp BP Pulse Ox O2 Del Method 98.8 F 77 18 136/63 H 99 Room Air 08/09/22 05:15 08/09/22 05:15 08/09/22 05:15 08/09/22 05:15 08/09/22 05:15 08/09/22 05:15 Oxygen Delivery Method Room Air Weight: 83.053 kg Body Mass Index (BMI) 29.5 Intake & Output: Intake and Output for Last 24 Hours 08/07/22 08/08/22 08/09/22 23:59 23:59 23:59 Intake Total 3442.83 / 3442.83 4772.17 / 4772.17 1892.75 / 1892.75 Balance 3442.83 / 3442.83 4772.17 / 4772.17 1892.75 / 1892.75 Lab / Micro Data Result Diagrams: 08/09/22 04:35 08/09/22 04:35 Labs: Laboratory Results - last 24 hr 08/08/22 07:13: Sodium 142, Potassium 3.3 L, Chloride 110 H, Carbon Dioxide 27.0, Anion Gap 5, BUN 2 L, Creatinine 0.57, Estim Creat Clear Calc 128.96, Est GFR (MDRD) Af Amer 154, Est GFR (MDRD) Non-Af 127, BUN/Creatinine Ratio 3.5 L, Glucose 66 L, Calcium 7.9 L, Magnesium 1.7, Total Bilirubin 0.30, AST 12 L, ALT 13, Alkaline Phosphatase 67, Total Protein 6.1 L, Albumin 2.3 L, Globulin 3.8, Albumin/Globulin Ratio 0.6 L 08/09/22 04:35: WBC 7.6, RBC 3.47 L, Hgb 10.5 L, Hct 32.4 L, MCV 93.4, MCH 30.3, MCHC 32.4, RDW Std Deviation 45.5 H, RDW Coeff of Yuly 13.3, Plt Count 331, MPV 9.6, Immature Gran % (Auto) 0.400, Neut % (Auto) 57.5, Lymph % (Auto) 26.7, [place] % (Auto) 10.2 H, Eos % (Auto) 4.8, Baso % (Auto) 0.4, Absolute Neuts (auto) 4.4, Absolute Lymphs (auto) 2.04, Nucleated RBC % 0 08/09/22 04:35: Sodium 137, Potassium 6.3 H*, Chloride 105, Carbon Dioxide 26.0, Anion Gap 6, BUN 3 L, Creatinine 0.54 L, Estim Creat Clear Calc 136.12, Est GFR (MDRD) Af Amer 165, Est GFR (MDRD) Non-Af 136, BUN/Creatinine Ratio 5.6 L, Glucose 204 H, Calcium 8.4 L, Total Bilirubin 0.30, AST 21, ALT 21, Alkaline Phosphatase 79, Total Protein 6.4, Albumin 2.4 L, Globulin 4.0, Albumin/Globulin Ratio 0.6 L Micro: Microbiology 08/07/22 Unknown Sub-Mandibular Mass Gram Stain - Final 08/07/22 Unknown Sub-Mandibular Mass Wound Culture - Preliminary Alpha Hemolytic Streptococcus
[2022-08-09 08:22] LABS: Potassium 5.1 mmol/L (3.5-5.1)
[2022-08-09 09:21] VITALS: BP 131/73; PULSE 80; RESP 18; TEMP 36.7; O2SAT 96
--- NOTE | 2022-08-09 09:52 | PCM.DC ---
Discharge Instructions Diet Discharge Diet: 1800 Calorie Control Diet Activity Discharge Activity: Return to Normal Activity Weight Bearing Status: Weight bearing as tolerated Follow Up Care Test Results: Test results from this visit will be discussed in further detail at your follow-up appointment, if applicable. Discharge Plan Admission Admit Date/Time: 08/06/22 17:50 Primary Reason for Your Visit: Acute bilateral submandibular spaces, sublingual spaces and submental space Attending Provider: Clair Puente Primary Care Provider: Care Physician,No Primary Consulting Providers: Tyler Everett ; Parker Maravilla Instructions Additional Instructions / Restrictions: continue augmentin as previously instructed until follow up and then verify w/ Dr Everett if he wants them to stop return for increased swelling or pain Discharge Orders/Prescriptions Prescriptions: Continued (DME) FreeStyle Barney 14 Day Sensor Kit See Rx Instructions .ROUTE .MEDSUPPLY Qty: 2 8RF Rx Instructions: As directed (DME) Dexcom G6 Sensor Device See Rx Instructions .Route Qty: 9 1RF Rx Instructions: 1 sensor q 10 days oxycodone-acetaminophen 5-325 mg tablet 1 tab PO Q6H PRN PRN (Reason: pain) 5 Days Qty: 20 0RF ondansetron 4 mg tablet,disintegrating 4 mg PO Q8H PRN PRN (Reason: Nausea) Qty: 10 0RF amoxicillin-pot clavulanate 875-125 mg Tablet 1 tab PO BID (DME) Dexcom G6 Strip Stamp Straightener Misc See Rx Instructions .Route Qty: 1 0RF Rx Instructions: As directed (DME) Dexcom G6 Strip Stamp Straightener Misc See Rx Instructions .Route Qty: 1 0RF Rx Instructions: As directed Humalog U-100 Insulin 100 unit/mL solution See Rx Instructions SC QDAY MDD 110 Qty: 40 1RF Dose Instruction: uses up to 75 Units qd via pump SC QDAY; Rx Instructions: uses up to 110 Units qd via pump SC QDAY; (DME) Dexcom G6 Transmitter Device See Rx Instructions .Route Qty: 1 3RF Rx Instructions: 1 transmitter q 90 days (DME) Omnipod Dash Pods (Gen 4) Cartridge See Rx Instructions .ROUTE .MEDSUPPLY Qty: 10 2RF Rx Instructions: change every 72 hours Discontinued amoxicillin-pot clavulanate 400-57 mg/5 mL suspension for reconstitution 10 ml PO BID Referrals / Follow Up: Care Physician,No Primary [Primary Care Provider] - Disposition Disposition (needs filled in before D/C Order can be placed): Home, Self Care
--- NOTE | 2022-08-09 10:40 | PCM.DC.SUM ---
Providers Date of Admission: 08/06/22 Date of Discharge: 08/09/22 Primary Care Physician: Chiara Primary Care Phys Consultations 08/06/22 18:32 Consult: Oral Surgeon Routine Consulting Provider: Tyler Everett Reason for Consult: dental abcess EMERGENT Consult: No MD Notified: Yes Date Notified: 08/06/22 Time Notified: 17:56 Method of Notification: Verbal Reason For Visit: DENTAL ABSCESS Diagnosis Discharge Diagnosis (1) Acute periodontal abscess: Status: Acute Code(s): K05.219 - Aggressive periodontitis, localized, unspecified severity Plan 1. Bilateral submandibular spaces, sublingual spaces and submental space, abscessed teeth 2. Severe hypokalemia 3. Hypomagnesemia 4. Type I DM Medications at Discharge Home Medications flash glucose sensor (FreeStyle Barney 14 Day Sensor kit) #2 ea 10/06/21 blood-glucose meter,continuous (Dexcom G6 Facility Service Manager) #1 ea 02/09/22 blood-glucose sensor (Dexcom G6 Sensor device) #9 ea 03/05/22 blood-glucose meter,continuous (Dexcom G6 Facility Service Manager) #1 ea 03/06/22 insulin lispro 100 unit/mL subcutaneous solution (Humalog U-100 Insulin) See Rx Instructions subcut QDAY e10.9 #40 mL 03/09/22 blood-glucose transmitter (Dexcom G6 Transmitter device) #1 ea 07/05/22 Omnipod Dash Pods (Gen 4) (insulin pump cart,cont inf,BT) #10 ea 07/31/22 ondansetron 4 mg disintegrating tablet 4 mg PO Q8H PRN PRN Nausea #10 tabs 08/03/22 oxycodone-acetaminophen 5 mg-325 mg tablet 1 tab PO Q6H PRN PRN pain 5 days #20 TABLETS 08/03/22 amoxicillin 875 mg-potassium clavulanate 125 mg tablet 1 tab PO BID infection 08/06/22 Hospital Course Operations None Procedures None Summary of Care Provided Minutes Spent on Discharge: 35 Hospital Course: 86-year-old female who was sent in by oral surgery due to swelling in her right anterior neck region concerning for dental abscess. Patient has had trouble swallowing solid food. She denied any new breathing difficulty. Her vitals in the ED were stable. Her white cell count was normal. Her potassium was 3.1. She is got history of type [address] of the neck showed periodontal lucency of the left mandibular molars presented for periodontal abscess Patient was admitted to the [facility] and managed on IV antibiotics. Oral surgery was consulted. Patient underwent I&D of the bilateral submandibular spaces, sublingual spaces and submental space. Much pus was removed on sublingual dissections. Patient had drain placed. The drain was removed on 08/08/22. She was discharged to closely follow-up with oral surgery. Physical Exam Narrative Physical exam: General: Alert, oriented x3, cooperative, in mild discomfort HEENT: Atraumatic, bilateral dressings in lower jaws. Oral: Moist Mucosa Neck: Supple Lungs: Diminished to auscultation Cardiovascular: HS I+II, regular, no murmurs Abdomen: Bowel Sounds Present, Soft, Non Tender Extremities: No edema Skin: No rashes, No breakdown Neurological: Grossly intact Psych/Mental Status: Appropriate Weight / BMI Weight Weight: 83.053 kg Body Mass Index (BMI) 29.5 ABG / Lab / Microbiology Data Result Diagrams: 08/09/22 04:35 08/09/22 08:03 Laboratory: Laboratory Results - last 24 hr 08/09/22 04:35: WBC 7.6, RBC 3.47 L, Hgb 10.5 L, Hct 32.4 L, MCV 93.4, MCH 30.3, MCHC 32.4, RDW Std Deviation 45.5 H, RDW Coeff of Yuly 13.3, Plt Count 331, MPV 9.6, Immature Gran % (Auto) 0.400, Neut % (Auto) 57.5, Lymph % (Auto) 26.7, [place] % (Auto) 10.2 H, Eos % (Auto) 4.8, Baso % (Auto) 0.4, Absolute Neuts (auto) 4.4, Absolute Lymphs (auto) 2.04, Nucleated RBC % 0 08/09/22 04:35: Sodium 137, Potassium 6.3 H*, Chloride 105, Carbon Dioxide 26.0, Anion Gap 6, BUN 3 L, Creatinine 0.54 L, Estim Creat Clear Calc 136.12, Est GFR (MDRD) Af Amer 165, Est GFR (MDRD) Non-Af 136, BUN/Creatinine Ratio 5.6 L, Glucose 204 H, Calcium 8.4 L, Total Bilirubin 0.30, AST 21, ALT 21, Alkaline Phosphatase 79, Total Protein 6.4, Albumin 2.4 L, Globulin 4.0, Albumin/Globulin Ratio 0.6 L 08/09/22 08:03: Potassium 5.1 Microbiology: Microbiology 08/07/22 Unknown Sub-Mandibular Mass Gram Stain - Final 08/07/22 Unknown Sub-Mandibular Mass Wound Culture - Preliminary Alpha Hemolytic Streptococcus D/C Instructions Discharge Diet: 1800 Calorie Control Diet Weight Bearing Status: Weight bearing as tolerated Meaningful Use Info Meaningful Use Diagnoses (Choose all that apply): None applicable Discharge Plan Admission Admit Date/Time: 08/06/22 17:50 Primary Reason for Your Visit: Acute bilateral submandibular spaces, sublingual spaces and submental space Attending Provider: Clair Puente Primary Care Provider: Care Physician,No Primary Consulting Providers: Tyler Everett ; Parker Maravilla Instructions Additional Instructions / Restrictions: continue augmentin as previously instructed until follow up and then verify w/ Dr Everett if he wants them to stop return for increased swelling or pain Discharge Orders/Prescriptions Prescriptions: Continued (DME) FreeStyle Barney 14 Day Sensor Kit See Rx Instructions .ROUTE .MEDSUPPLY Qty: 2 8RF Rx Instructions: As directed (DME) Dexcom G6 Sensor Device See Rx Instructions .Route Qty: 9 1RF Rx Instructions: 1 sensor q 10 days oxycodone-acetaminophen 5-325 mg tablet 1 tab PO Q6H PRN PRN (Reason: pain) 5 Days Qty: 20 0RF ondansetron 4 mg tablet,disintegrating 4 mg PO Q8H PRN PRN (Reason: Nausea) Qty: 10 0RF amoxicillin-pot clavulanate 875-125 mg Tablet 1 tab PO BID (DME) Dexcom G6 Facility Service Manager Misc See Rx Instructions .Route Qty: 1 0RF Rx Instructions: As directed (DME) Dexcom G6 Facility Service Manager Misc See Rx Instructions .Route Qty: 1 0RF Rx Instructions: As directed Humalog U-100 Insulin 100 unit/mL solution See Rx Instructions SC QDAY MDD 110 Qty: 40 1RF Dose Instruction: uses up to 75 Units qd via pump SC QDAY; Rx Instructions: uses up to 110 Units qd via pump SC QDAY; (DME) Dexcom G6 Transmitter Device See Rx Instructions .Route Qty: 1 3RF Rx Instructions: 1 transmitter q 90 days (DME) Omnipod Dash Pods (Gen 4) Cartridge See Rx Instructions .ROUTE .MEDSUPPLY Qty: 10 2RF Rx Instructions: change every 72 hours Discontinued amoxicillin-pot clavulanate 400-57 mg/5 mL suspension for reconstitution 10 ml PO BID Referrals / Follow Up: Care Physician,No Primary [Primary Care Provider] - Disposition Disposition (needs filled in before D/C Order can be placed): Home, Self Care Charges/Coding Visit Charges Inpatient E&M: 43354 Disch Hosp >30min
== END 2022-08-09 11:44 | disposition home or self-care (01) | DRG 159 ==
LOC: ED 15:20 → MS3 18:37
PROVIDERS: Anesthesiology; Dentist Oral and Maxillofacial Surgery; Admitting Provider Internal Medicine; Emergency Provider Emergency Medicine; Visit Provider Internal Medicine
PROC: 0J9100Z Drainage of Face Subcutaneous Tissue and Fascia with Drainage Device, Open Approach (ICD-10-PCS; principal; 2022-08-07 14:15)
DX: K05.219 Aggressive periodontitis, localized, unspecified severity (principal); E10.638 Type 1 diabetes mellitus with other oral complications; E87.6 Hypokalemia; E03.9 Hypothyroidism, unspecified; E83.42 Hypomagnesemia; K02.9 Dental caries, unspecified; Z96.41 Presence of insulin pump (external) (internal)
CPT/HCPCS: 36415; 80048; 80053; 82962; 83036; 83735; 84132; 85025; 87070; 87075; 87077; 87186; 87205; 99284; J7030; J7040; J7120; A4216; J0295; J2405

== ENCOUNTER → 2023-09-20 | Outpatient (CLI) | payer OTHER, SELFPAY ==
--- OUTSIDE RECORDS SUMMARY | 2023-09-20 12:22 | XMS RPT_ITS | CCD ---
Author Name Unknown Address [address] [place] [address] Organization [facility] Care Team Providers Care Pastry Sous Chef Name Role Phone Elsie RAMOS, Rosa Maria Hoang Unavailable ZULY SURESH Admitting Unavailable ZULY SURESH Attending Unavailable NO, DOCTOR ON Referring Unavailable ZULY SURESH Primary Care Unavailable NO, DOCTOR ON Consulting Unavailable Unavailable Primary Care Provider Unavailabl e SRUTHI, KATERIN Attending Unavailable SRUTHI, KATERIN Referring Unavailable Allergies Allergy Classification Reported Allergen(s) Allergy Type Date of Onset Reaction(s) Facility (4 sources) Shellfish; Translations: [SHELLFISH CONTAINING PRODUCTS] Drug Allergy 03-09-1995 Vomiting, Shortness of Breath, Swelling [facility] Work Phone: Medications Current Medications Medication Drug Class(es) Dates Sig (Normalized) Sig (Original) valACYclovir 500 mg oral tablet (4 sources) Herpesvirus Nucleoside Analog DNA Polymerase Inhibitor, Herpes Simplex Virus Nucleoside Analog DNA Polymerase Inhibitor, Herpes Zoster Virus Nucleoside Analog DNA Polymerase Inhibitor Start: 04-02-2023 End: 07-01-2023 take 1 tablet by mouth once daily valACYclovir (VALTREX) 500 mg tablet Take 1 tablet by mouth once daily. 90 tablet 0 04/02/2023 07/01/2023 Active Completed/Discontinued Medications Medication Drug Class(es) Dates Sig (Normalized) Sig (Original) Blood-Glucose Meter (MAX BLOOD GLUCOSE METER) misc (3 sources) Start: 07-28-2013 Blood-Glucose Meter (MAX BLOOD GLUCOSE METER) misc Indications: Type I (juvenile type) diabetes mellitus without mention of complication, uncontrolled Test 4-5 times daily 150 Each 11 07/28/2013 Active Problems Active Problems Problem Classification Problem Date Documented Date Episodic/Chronic Diabetes mellitus with complications (3 sources) Ketoacidosis due to type 1 diabetes mellitus; Translations: [Type 1 diabetes mellitus with ketoacidosis without coma] Onset: 04-23-2020 04-23-2020 Chronic Diabetes mellitus without complication (9 sources) Type 1 diabetes mellitus without complications; Translations: [Type 1 diabetes mellitus] Onset: 01-04-2017 01-04-2017 Chronic Nutritional deficiencies (6 sources) Vitamin D deficiency; Translations: [Vitamin D deficiency, unspecified] Onset: 02-25-2009 01-04-2017 Chronic Other female genital disorders (1 source) Other specified noninflammatory disorders of vulva and perineum; Translations: [Vulvar lesion] Onset: 06-29-2022 Episodic Other nutritional; endocrine; and metabolic disorders (3 sources) Overweight; Translations: [Overweight] Onset: 01-04-2017 01-04-2017 Chronic Retinal detachments; defects; vascular occlusion; and retinopathy (3 sources) Thrombosis of retinal artery; Translations: [Unspecified retinal vascular occlusion] Onset: 05-21-2020 05-21-2020 Chronic Thyroid disorders (6 sources) Hypothyroidism; Translations: [Hypothyroidism, unspecified] Onset: 02-25-2009 01-04-2017 Chronic Past or Other Problems Problem Classification Problem Date Documented Da te Episodic/Chronic Headache; including migraine (3 sources) Headache; Translations: [Headache] Onset: 04-26-2007 04-26-2007 Episodic Nonspecific chest pain (3 sources) Chest pain; Translations: [Chest pain, unspecified] Onset: 04-26-2007 04-26-2007 Episodic Other nutritional; endocrine; and metabolic disorders (3 sources) H/O: hypothyroidism; Translations: [Personal history of other endocrine, nutritional and metabolic disease] Onset: 03-07-2020 03-11-2020 Episodic Residual codes; unclassified (3 sources) Family history of coronary arteriosclerosis; Translations: [Family history of ischemic heart disease and other diseases of the circulatory system] Onset: 09-16-2010 09-16-2010 Episodic Skin and subcutaneous tissue infections (3 sources) Cellulitis and abscess of toe; Translations: [Cellulitis of unspecified toe] Onset: 05-09-2009 05-09-2009 Episodic Results Test Name Value Interpretation Reference Range Facil ity Vital Signs Date Time Vital Sign Value Performing Clinician Facility 01-04-2017 10:36-0400 BMI (Body Mass Index) 28.69 kg/m2 Rosa Maria Zimmerman NP [facility] Work Phone: 01-04-2017 10:36-0400 Body Temperature 98.2 [degF] Rosa Maria Zimmerman NP [facility] Work Phone: 01-04-2017 10:36-0400 BP Diastolic 83 mm[Hg] Rosa Maria Zimmerman NP [facility] Work Phone: 01-04-2017 10:36-0400 BP Diastolic 70 mm[Hg] Rosa Maria Zimmerman NP [facility] Work Phone: 01-04-2017 10:36-0400 BP Systolic 122 mm[Hg] Rosa Maria Zimmerman NP [facility] Work Phone: 01-04-2017 10:36-0400 BP Systolic 135 mm[Hg] Rosa Maria Zimmerman NP [facility] Work Phone: 01-04-2017 10:36-0400 Height 170.18 cm Rosa Maria Zimmerman NP [facility] Work Phone: 01-04-2017 10:36-0400 Pulse (Heart Rate) 97 /min Rosa Maria Zimmerman NP [facility] Work Phone: 01-04-2017 10:36-0400 Pulse Oximetry 99 % Rosa Maria Zimmerman NP [facility] Work Phone: 01-04-2017 10:36-0400 Respiratory Rate 16 /min Rosa Maria Zimmerman NP [facility] Work Phone: 01-04-2017 10:36-0400 Weight 83.1 kg Rosa Maria Zimmerman NP [facility] Work Phone: Encounters Encounter Date Encounter Type Care Provider Facility Start: 04-02-2023 Get Medical Advice Katerin Cabral tcalf CARDIOGRAPH OPERATOR.DIRECTOR INSURANCE Work Phone: OB/Gynecology Procedures Date Procedure Procedure Detail Performing Clinician Start: 01-04-2017 End: 01-04-2017 Dietary management education, guidance, and counseling Rosa Maria Zimmerman NP Plan of Treatment Date Care Activity Detail Author Start: 03-11-2025 HPV TESTING HPV TESTING [facility] Start: 03-11-2025 PAP TESTING PAP TESTING [facility] Start: 03-19-2023 Influenza vaccination Influenza Vaccine (#1) [facility] Start: 07-19-2022 DEPRESSION ASSESSMENT DEPRESSION ASSESSMENT [facility] Start: 03-19-2022 Influenza vaccination INFLUENZA (#1) [facility] Start: 07-19-2021 DEPRESSION ASSESSMENT DEPRESSION ASSESSMENT [facility] Start: 09-07-2020 Hemoglobin A1c/Hemoglobin.total in Blood HBA1C [facility] Start: 04-30-2017 Hepatitis C antibody, confirmatory test DILATED RETINAL EXAM [facility] Start: 04-06-2017 End: 04-06-2017 Appointment Appointment [facility] Work Phone: Start: 01-04-2017 End: 01-04-2017 Appointment Appointment [facility] Work Phone: Start: 01-04-2017 End: 01-10-2017 *CMP Complete Metabolic Panel *CMP Complete Metabolic Panel [facility] Work Phone: Start: 01-04-2017 End: 01-10-2017 *Microalbumin, Creatine Ratio, rand urine *Microalbumin, Creatine Ratio, rand urine [facility] Work Phone: Start: 01-04-2017 End: 01-10-2017 HbA1c *HgA1C [facility] Work Phone: Start: 01-04-2017 End: 01-10-2017 Lipid panel [AGGREGATE] *Lipid Profile [facility] Work Phone: Start: 01-04-2017 End: 01-10-2017 Thyroid stimulating hormone (TSH) *TSH [facility] Work Phone: Start: 04-23-2015 Urine microalbumin profile [facility] Start: 07-28-2014 3 comp foot exam completed DIABETIC FOOT EXAM [facility] Start: 07-28-2014 Hepatitis B screening URINE ALBUMIN:CREATININE RATIO [facility] Start: 07-28-2014 Hepatitis B surface antibody level LDL CHOLESTEROL [facility] Start: 05-21-2005 HEPATITIS B (2 of 3 - 3-dose series) HEPATITIS B (2 of 3 - 3-dose series) [facility] Start: 05-21-2005 Hepatitis B Vaccine (2 of 3 - 3-dose series) Hepatitis B Vaccine (2 of 3 - 3-dose series) [facility] Start: 2004 ANNUAL PCP TEAM CHRONIC DISEASE VISIT ANNUAL PCP TEAM CHRONIC DISEASE VISIT [facility] Start: 1992 PNEUMOCOCCAL (1 - PCV) PNEUMOCOCCAL (1 - PCV) [facility] Start: 1992 Pneumococcal vaccination Pneumococcal Vaccine (1 - PCV) [facility] Start: 04-02-1987 COVID-19 VACCINE (#1) COVID-19 VACCINE (#1) [facility] Immunizations Immunization Date Immunization Notes Care Provider Fa cili 04-23-2005 hepatitis B vaccine, pediatric or pediatric/adolescent dosage Katerin Browerville CARDIOGRAPH OPERATOR.DIRECTOR INSURANCE Work Phone: [facility] 04-23-2005 tetanus toxoid, redu kenya diphtheria toxoid, and acellular pertussis vaccine, adsorbed Katerin [place]erville CARDIOGRAPH OPERATOR.DIRECTOR INSURANCE Work Phone: [facility] 04-23-2005 hepatitis B vaccine, unspecified formulation Katerin [place]erville CARDIOGRAPH OPERATOR.DIRECTOR INSURANCE Work Phone: [facility] Payers Date Payer Category Payer Private Health Insurance [id number] 2021 Medicare [id number] 2019 Medicaid 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) [facility] Start: 03-07-2020 History SDOH Financial 5 [facility] Start: 03-07-2020 History SDOH Food Worry 1 [facility] Start: 03-07-2020 History SDOH Transpo rt Med 2 [facility] Start: 03-07-2020 Education 13 [facility] Start: 1985 Sex Assigned At Female C [facility] Start: 06-23-2020 End: 06-29-2022 History of Social function [facility] Work Phone: Start: 06-23-2020 End: 06-29-2022 Tobacco use panel [facility] Work Phone: How hard is it for y ou to pay for the very basics like food, housing, medical care, and heating Not hard at all [facility] Work Phone: (I/We) worried wheth er (my/our) food would run out before (I/we) got money to buy more. Never true [facility] Work Phone: Start: 03-05-2020 Gender identity Identifies as female gender (finding) [facility] Start: 03-05-2020 Sexual orientation Heterosexual (sariah cheney) [facility] Medical Equipment Procedure Code Equipment Code Equipment Origin al Text Equipment Identifier Dates Start: 07-26-2006 Note 04-02-2023 Telephone Encounter - Madhavi Barba RN - 04/02/2023 2:57 PM EDT Note Date & Type Note Facility 04-02-2023 Miscellaneous Notes Formattin g of this note is different from the original. Last seen 06/29/02 for a problem visit. Patient request for medication is as follows: Requested Prescriptions Pending Prescriptions Disp Refills valACYclovir (VALTREX) 500 mg tablet 90 tablet 0 Sig: Take 1 tablet by mouth once daily. Madhavi Barba RN documented in this encounter [facility] Progress note 06-29-2022 Note Date & Type Note Facility 06-29-2022 Note HNO ID: [id number] Author: Katerin Gallagher APRN.DIRECTOR INSURANCE Service: ? Author Type: Nurse Practitioner Type: Progress Notes Filed: 06/29/2022 11:38 AM Note Text: Award Machine Operator offered: Patient declines. Hilaria Jay is a 36 year old female who presents for problem visit vulvar lesions for 4 days. HPI: She noticed the lesions about 4 days ago. States that she is having burning and itching. No fevers. Last sexually contact 6 days ago OB History T1 L4 SAB1 IAB0 Ectopic0 Multiple0 Live Births4 Casing Splitter History LMP: 01/20/2020 (Exact Date), Unknown Age at Menarche: Age at First : Age at Menopause: Casing Splitter History Comments: Sexual Activity: Yes; Male Contraception: No contraception data on record PAST MEDICAL HISTORY Diagnosis Date Branch retinal artery occlusion 2019 History of pre-eclampsia in prior , currently History of delivery, currently Placental abruption Thyroid disease Type I (juvenile type) diabetes mellitus without mention of complication, not stated as uncontrolled (HCC) Unspecified , without mention of complication, unspecified 2006 9 wks, miscarriage PAST SURGICAL HISTORY Procedure Laterality Date DELIVERY ONLY 2006AND 2007 AND 2011 , low cervical LIGATE FALLOPIAN TUBE W SECTION Bilateral 10/01/2020 [facility]CS at [facility] FAMILY HISTORY Problem Relation Age of Onset None Mother None Father Heart Attack Father None Brother None Sister Hypertension Paternal Grandfather Heart Attack Paternal Grandfather other (thyroid disease) Paternal Grandmother Cancer Maternal Grandmother Lung Cancer Cancer Maternal Grandfather Stomach Cancer other (Guilliane Haverhill) Maternal Grandfather No Known Problems Son No Known Problems Son No Known Problems Son Social History Tobacco Use Smoking status: Never Smokeless tobacco: Never Vaping Use Vaping Use: Never used Substance Use Topics Alcohol use: No Drug use: No Current Outpatient Medications Medication Sig flash glucose sensor kit Flash Glucose Sensor Flash Glucose Sensor Active 0 .MEDSUPPLY 2 November 28, 2019 11:33am As directed 11-28-[address] [facility] ([id number]) FREESTYLE MARY 14 DAY SENSOR kit OMNIPOD DASH 5 PACK POD crtg CHANGE 1 POD EVERY 72 HOURS insulin lispro (HUMALOG) 100 unit/mL injection As directed on insulin pump (approx 75 units), E10.9 blood sugar diagnostic (CONTOUR NEXT STRIPS) test strip Testing 4-5 times daily Insulin Syringe-Needle U-100 (INSULIN SYRINGE) 1/2 mL 30 x 5/16 syrg Use 1 syringe for each dose 4-6/day lancets (ONE TOUCH DELICA LANCETS) 30 gauge misc use as directed 4-5 times daily Blood-Glucose Meter (MAX BLOOD GLUCOSE METER) misc Test 4-5 times daily COMPOUNDED PRESCRIPTION [place] Glucose Meter use as directed glucagon,human recombinant(GLUCAGON EMERGENCY 1 MG INJECTION KIT) use as directed, call if used syring w-ndl,disp,insul,0.3ml(BD INSULIN SYRINGE ULT-FINE II 0.3 ML 31 X 5/16 ) use as directed FREESTYLE LANCETS use as directed PEN NEEDLES 31 X 5/16 Use as directed. No current facility-administered medications for this visit. Allergies As of Date: 06/29/2022 Allergen Noted Reaction SHELLFISH CONTAINING PRODUCTS 03/09/1995 Vomiting, Shortness of Breath, and Swelling Fully Assessed 12/02/2020 REVIEW OF SYSTEMS Expanded ROS: N/A Allergies and current medication updated:Yes EXAM: LMP 01/20/2020 GENERAL: pleasant, female in no apparent distress HEENT: Normocephalic, atraumatic, and no lesions CHEST: Normal inspiratory effort PELVIC: external genitalia normal, normal Bartholin's glands, urethra, Chamberlayne's glands, no cervical lesions, good vaginal support, physiologic discharge present, normal appearing perineal body and perianal region, vulvar lesion multiple sore on the inner labia majory vaginal lesion few sore just inside the introitus, lots of swelling NEURO: alert and oriented x3,exam grossly non-focal EXTREMITIES: normal ASSESSMENT/PLAN: 1. Vulvar lesion - ICD9: 624.8, ICD10: N90.89 (primary diagnosis) - Valtrex 1 gram BID x 7 days - Lidocaine gel as needed - HERPES SIMPLEX TYPE 1 AND 2 IG - HSV 1,2/VZV AMP MOLECULAR DETECT 2. Screening examination for sexually transmitted disease - ICD9: V74.5, ICD10: Z11.3 - GC/CHLAMYDIA DNA DET Katerin Gallagher APRN.DIRECTOR INSURANCE Medical Decision Making: Problems: Low: Acute, uncomplicated illness or injury Data: Unique test(s) ordered: 3+ Risk: Low: Low risk from testing/treatment Moderate: Drug management Medical Decision Making Level: 4 - Moderate [facility] History of Past illness Narrative 08-12-2020 Note Date & Type Note Facility documented as of this encounter (statuses as of 06/29/2022) [facility] History of Past illness Narrative 08-12-2020 Note Date & Type Note Facility documented as of this encounter (statuses as of 08/27/2022) [facility] History of Past illness Narrative 08-12-2020 Note Date & Type Note Facility documented as of this encounter (statuses as of 04/06/2023) [facility] Summary Purpose Family History No Family History Records FoundNo Family History Records Found Advance Directives No Advanced Directives Records FoundNo Advanced Directives Records Found Additional Source Comments INFORMATION SOURCE (unrecogn ized section and content) DATE CREATED AUTHOR AUTHOR'S ORGANIZ ATION 06/30/2022 [facility] Source Comments (unrecognize d section and content) In the event this informatio n is protected by the Federal Confidentiality of Alcohol and Drug Abuse Patient Records regulations: The Federal rules restrict any use of the information to criminally investigate or prosecute any alcohol or drug abuse patient.[facility] the event this information is protected by the Federal Confidentiality of Alcohol and Drug Abuse Patient Records regulations: The Federal rules restrict any use of the information to criminally investigate or prosecute any alcohol or drug abuse patient.[facility] the event this information is protected by the Federal Confidentiality of Alcohol and Drug Abuse Patient Records regulations: The Federal rules restrict any use of the information to criminally investigate or prosecute any alcohol or drug abuse patient.[facility] FOR RECORDS PERTAINING TO PATIENTS WHO ARE OR HAVE BEEN ENROLLED IN A CHEMICAL DEPENDENCY/SUBSTANCEABUSE PROGRAM, SOME INFORMATION MAY BE OMITTED. This clinical summary was aggregated from multiple sources. Caution should be exercised in using it in the provision of clinical care. This summary normalizes information from multiple sources, and as a consequence, information in this document may materially change the coding, format and clinical context of patient data. In addition, data may be omitted in some cases. CLINICAL DECISIONS SHOULD BE BASED ON THE PRIMARY CLINICAL RECORDS. [facility] [facility]. provides no warranty or guarantee of the accuracy or completeness of information in this document.
[2023-09-20 13:07] LABS: Vitamin D,25 Hydroxy 32.3 ng/mL
[2023-09-20 13:29] LABS: ALB/GLOB Ratio 0.9 RATIO (0.9-2.4); AST(SGOT) 15 U/L (15-37); Alanine Aminotransfer ALT/SGPT 36 U/L (13-56); Albumin, Serum 3.6 g/dL (3.2-5.0); Alkaline Phosphatase 64 U/L (45-117); Anion Gap 4 (5-15); BUN 8 mg/dL (7-18); BUN/Creat Ratio 9.2 RATIO (10-20); Calcium,Total 8.9 mg/dL (8.5-10.1); Chloride 107 mmol/L (98-107); Cholesterol 133 mg/dL (200); Creatinine, Serum 0.87 mg/dL (0.55-1.02); EST Glomerular Filtration Rate 78 mL/min (>60); Est Glom Filt Rate - Afr Amer 94 mL/min (>60); Globulin 4.1 g/dL (2.2-4.2); Glucose 209 mg/dL (74-106); High Density Lipoprotein 58 mg/dL; Potassium 3.8 mmol/L (3.5-5.1); Protein, Total 7.7 g/dL (6.4-8.2); Sodium Level 138 mmol/L (136-145); Triglycerides 31 mg/dL; Very Low Density Lipoprotein 6 mg/dL (5-40)
[2023-09-20 13:39] LABS: Microalbumin,Random Urine 6.2 mg/L (NO RANGE EST.); Microalbumin:Creatinine Ratio 3.1 mg/g CRE (<30 mg/g CRE)
== END | disposition home or self-care (01) ==
PROVIDERS: Referring Provider Internal Medicine Endocrinology, Diabetes & Metabolism; Visit Provider Internal Medicine Endocrinology, Diabetes & Metabolism
DX: E10.65 Type 1 diabetes mellitus with hyperglycemia (principal); Z96.41 Presence of insulin pump (external) (internal); E55.9 Vitamin D deficiency, unspecified; Z46.81 Encounter for fitting and adjustment of insulin pump
CPT/HCPCS: 36415; 80053; 80061; 82043; 82306; 82570; 84443

== ENCOUNTER → 2025-05-30 | Outpatient (CLI) | payer OTHER, SELFPAY ==
[2025-05-30 15:45] LABS: Hematocrit 38.2 % (37-47); Hemoglobin 13.0 g/dL (12.0-15.0); Immature Granulocytes Count 0.010 X10^3/uL (0.0-0.0); Mean Corp Hgb Conc 34.0 g/dL (32-36); Mean Corpuscular Volume 91.0 fL (81-99); Mean Platelet Vol. 10.3 fl (6.2-12.0); NRBC Flagged by Analyzer 0 % (0-5); Platelet Count 313 K/mm3 (150-450); RBC Distribution Width CV 12.8 % (11.6-14.6); RBC Distribution Width SD 41.7 fl (35.1-43.9); Red Blood Count 4.20 M/mm3 (4.2-5.4); White Blood Count 7.1 K/mm3 (4.4-11.0)
[2025-05-30 16:26] LABS: AST(SGOT) 15 U/L (<=31); Alanine Aminotransfer ALT/SGPT 13 U/L (<=34); Albumin, Serum 4.3 g/dL (3.5-5.0); Alkaline Phosphatase 48 U/L (35-104); Anion Gap 13 (5-15); BUN 7 mg/dL (4-19); BUN/Creat Ratio 9.7 RATIO (10-20); Calcium,Total 9.5 mg/dL (7.6-11.0); Carbon Dioxide 23.6 mmol/L (21.0-32.0); Chloride 102 mmol/L (98-108); Cholesterol 142 mg/dL (<=200); Ferritin 68 ng/mL (22-378); Globulin 3.5 g/dL (2.2-4.2); Glucose 113 mg/dL (70-99); Low Density Lipoprotein Calc. 73 mg/dL; Potassium 3.5 mmol/L (3.3-5.1); Triglycerides 48 mg/dL; Very Low Density Lipoprotein 10 mg/dL (5-40); cholesterol:hdl ratio screen 2.44
[2025-05-30 17:01] LABS: Creatinine, Urine (random) 321.00 mg/dL (28.00-217.00); Microalbumin,Random Urine < 12.0 mg/L (<20 mg/L)
== END | disposition home or self-care (01) ==
PROVIDERS: Referring Provider Internal Medicine Endocrinology, Diabetes & Metabolism; Visit Provider Internal Medicine Endocrinology, Diabetes & Metabolism
DX: E10.65 Type 1 diabetes mellitus with hyperglycemia (principal); D50.9 Iron deficiency anemia, unspecified; Z96.41 Presence of insulin pump (external) (internal); Z46.81 Encounter for fitting and adjustment of insulin pump
CPT/HCPCS: 36415; 80053; 80061; 82043; 82570; 82728; 84443; 85025